=== PATIENT | female | born 1935 | race Caucasian/White ===

== ENCOUNTER 2017-08-01 17:58 | Inpatient (IN) | payer MEDICARE ==
[~2017-08-01] VITALS: Ht 160 cm; Wt 60.0 kg
[~2017-08-01 17:58] MED LIST: CALC500C16 CHEW; CARB25TA9 PO; VITA2000 PO; [UNRECOGNIZED DRUG - SUPPLY]
[2017-08-01 18:01] VITALS: BP 118/58; PULSE 98; RESP 16; TEMP 97.7; O2SAT 98
[2017-08-01] MEDS ORDERED: ASPI81CH6 CHEW (19:37)
[2017-08-01] MEDS ORDERED: SINE25TA PO (19:37)
[2017-08-01] MEDS ORDERED: MELA1TAB18 PO (19:37)
[2017-08-01] MEDS ORDERED: COLA100C5 PO (19:37)
--- NOTE | 2017-08-01 19:48 | PD ---
HPI Chief Complaint: Hip Injury Time Seen by Provider: 19:37 Travel History International Travel<30 days: No Contact w/Intl Traveler<30days: No Traveled to known affect area: No History of Present Illness HPI 81-year-old female with history of Parkinson's disease presents emergency department for evaluation following a fall. Patient states she was working out yesterday when she got dizzy and fell landing on her right side. Currently she is reporting no pain but states she has severe right buttock pain when she moves. Patient was sent here by Dr. Leblanc for further evaluation of a questionable fracture identified on x-ray. Denies any chest pain or tightness. She did not hit her head or lose consciousness. She has not recently ill. She has no other symptoms to report. PFSH Past Medical History Neurologic: Yes (PARKINSONS DISEASE) Influenza Vaccination: Yes : 0 Past Surgical History Surgical History: No Previous Surgery Social History Alcohol Use: Yes (SOCIAL) Tobacco Use: No Substance Use: No Allergies-Medications (Allergen,Severity, Reaction): Coded Allergies: penicillin G (Unverified Allergy, Severe, Anaphylaxis, 08/01/17) Reported Meds & Prescriptions Reported Meds & Active Scripts Active [PRASAD knee high stock] Units DIRECTED PRASAD knee high stockings; apply each morning as soon as out of bed and remove at bedtime Carbidopa-Levodopa 25-100 Mg Tab 1 Tab PO QID Reported Melatonin 10 Mg-1 Mg Tab 10 Mg PO HS PRN Aspirin Low Dose (Aspirin) 81 Mg Chew 81 Mg CHEW DAILY Colace (Docusate Sodium) 100 Mg Capsule 200 Mg PO HS Sinemet (Carbidopa-Levodopa) 25-100 Mg Tab 1 Tab PO Q6HR Calcium Carbonate (Antacid) 500 Mg Chew 500 Mg CHEW BID PRN Vitamin D3 (Cholecalciferol) 2,000 Unit Cap 2,000 Units PO DAILY Review of Systems Except as stated in HPI: all other systems reviewed are Neg Physical Exam Narrative GENERAL: Thin elderly female patient, sitting in bed, in no acute distress. SKIN: Focused skin assessment warm/dry. HEAD: Atraumatic. Normocephalic. EYES: Pupils equal and round. No scleral icterus. No injection or drainage. ENT: No nasal bleeding or discharge. Mucous membranes pink and moist. NECK: Trachea midline. No JVD. CARDIOVASCULAR: Regular rate and rhythm. RESPIRATORY: No accessory muscle use. Clear to auscultation. Breath sounds equal bilaterally. GASTROINTESTINAL: Abdomen soft, non-tender, nondistended. Hepatic and splenic margins not palpable. MUSCULOSKELETAL: No obvious deformities. No clubbing. No cyanosis. No edema. No shortening or rotation. No significant tenderness to palpation. Distal pulses are palpable. Cap refill is within normal limits. NEUROLOGICAL: Awake and alert. No obvious cranial nerve deficits. Motor grossly within normal limits. Normal speech. PSYCHIATRIC: Appropriate mood and affect; insight and judgment normal. Data Data Last Documented VS Vital Signs Date Time Temp Pulse Resp B/P (MAP) Pulse Ox O2 Delivery O2 Flow Rate FiO2 08/01/17 21:34 84 139/68 (91) 84 143/65 (91) 90 133/63 (86) 08/01/17 21:24 18 94 Room Air 08/01/17 18:01 97.7 Orders Orders Iv Access Insert/Monitor (08/01/17 19:48) Complete Blood Count With Diff (08/01/17 19:48) Basic Metabolic Panel (Bmp) (08/01/17 19:48) Coag Profile (08/01/17 19:48) Chest, Single Ap (08/01/17 ) Electrocardiogram (08/01/17 ) Shoulder, Complete (>2vws) (08/01/17 ) Ct Pelvis W/O Iv Contrast (08/01/17 ) Orthostatic Vital Signs (08/01/17 20:50) Aspirin Chew (Aspirin Chew) (08/02/17 09:00) Calcium Carbonate Chew (Tums Chew) (08/01/17 22:00) Carbidopa-Levodopa 25-100 Mg (Sinemet 25 (08/02/17 00:00) Melatonin (Melatonin) (08/01/17 22:00) Admit Order (Ed Use Only) (08/01/17 21:51) Troponin I (08/01/17 20:18) Place In Observation (08/01/17 ) Code Status (08/01/17 22:14) Vital Signs (Adult) Q4H (08/01/17 22:14) Activity Bed Rest (08/01/17 22:14) Crop Specialist / Telemetry .CONTINUOUS (08/01/17 22:14) Diet Regular Basic (08/02/17 Breakfast) Sodium Chloride 0.9% Flush (Ns Flush) (08/01/17 22:15) Sodium Chloride 0.9% Flush (Ns Flush) (08/02/17 09:00) Acetaminophen (Tylenol) (08/01/17 22:15) Ondansetron Inj (Zofran Inj) (08/01/17 22:15) Comprehensive Metabolic Panel (08/02/17 06:00) Complete Blood Count With Diff (08/02/17 06:00) Urinalysis - C+S If Indicated (08/01/17 22:14) Resp Oxygen Alfredo C Titrat 1-4 L (08/01/17 ) Pt Request For Service (08/01/17 22:14) Heparin Inj (Heparin Inj) (08/01/17 23:00) Naloxone Inj (Narcan Inj) (08/01/17 22:15) Docusate Sodium-Senna (Christine-Colace) (08/02/17 09:00) Magnesium Hydroxide Liq (Milk Of Magnesi (08/01/17 22:15) Sennosides (Senokot) (08/01/17 22:15) Bisacodyl Supp (Dulcolax Supp) (08/01/17 22:15) Lactulose Liq (Lactulose Liq) (08/01/17 22:15) Specimen To Be Collected PRN (08/01/17 22:14) Labs Laboratory Tests Test 08/01/17 20:18 Prothrombin Time 10.0 SEC Prothromb Time International Ratio 1.0 RATIO Activated Partial Thromboplast Time 23.6 SEC Blood Urea Nitrogen 19 MG/DL Creatinine 1.01 MG/DL Random Glucose 82 MG/DL Calcium Level 8.6 MG/DL Sodium Level 144 MEQ/L Potassium Level 4.5 MEQ/L Chloride Level 110 MEQ/L Carbon Dioxide Level 27.5 MEQ/L Anion Gap 7 MEQ/L Estimat Glomerular Filtration Rate 53 ML/MIN MDM Medical Decision Making Medical Screen Exam Complete: Yes Emergency Medical Condition: Yes Medical Record Reviewed: Yes Differential Diagnosis Fracture versus sprain versus contusion versus dislocation Narrative Course 81-year-old female presents to the emergency department for evaluation of a possible right hip fracture following a near syncopal episode yesterday where she did end up falling landing on her right side.. She did not lose consciousness. Patient is eager to get home however she does report right buttock pain with movement. CT imaging of the pelvis is ordered. Laboratory Tests Test 08/01/17 20:18 Prothrombin Time 10.0 SEC Prothromb Time International Ratio 1.0 RATIO Activated Partial Thromboplast Time 23.6 SEC Blood Urea Nitrogen 19 MG/DL Creatinine 1.01 MG/DL Random Glucose 82 MG/DL Calcium Level 8.6 MG/DL Sodium Level 144 MEQ/L Potassium Level 4.5 MEQ/L Chloride Level 110 MEQ/L Carbon Dioxide Level 27.5 MEQ/L Anion Gap 7 MEQ/L Estimat Glomerular Filtration Rate 53 ML/MIN Troponin I LESS THAN 0.02 NG/ML Last Impressions Shoulder X-Ray 08/01/17 0000 Signed Impressions: Service Date/Time: July 20:00 - CONCLUSION: No evidence of fracture or dislocation. Ramón Hui MD Pelvis CT 08/01/17 0000 Signed Impressions: Service Date/Time: July 20:06 - CONCLUSION: 1. Fractures of the anterior right acetabular column extending into superior pubic ramus and mildly comminuted fracture of the right inferior pubic ramus. 2. 9 mm calcified stone lower pole right kidney, partially included in the iszqh-ra-[id number] exam. Ramón Hui MD Chest X-Ray 08/01/17 Signed Impressions: Service Date/Time: July 20:00 - CONCLUSION: Infiltrate or atelectasis medial left lower lung. Ramón Hui MD CBC is not yet complete asthma she is being cleaned. I discussed the patient with Dr. Rudolph, resident physician ocean transportation intermediary. Patient will be admitted observation to the resident service. Diagnosis Primary Impression: Pelvic fracture Qualified Codes: S32.401A - Unspecified fracture of right acetabulum, initial encounter for closed fracture Additional Impression: Near syncope Admitting Information Admitting Physician Requests: Observation Condition: Stable Sierra Schmitt LISBET Aug 01, 2017 19:48
--- NOTE | 2017-08-01 20:12 | RADRPT ---
EXAM DATE/TIME: 08/01/2017 20:00 [facility] COMPARISON: SHOULDER RIGHT COMPLETE (>2VWS), August 01, 2017, 20:00. INDICATIONS : Evaluate chest for trauma, fall MEDICAL HISTORY : None. SURGICAL HISTORY : None. ENCOUNTER: Initial ACUITY: 1 day PAIN SCORE: 0/10 LOCATION: chest FINDINGS: Mild patient rotation towards the right. The right lung is clear. Hazy opacity in the medial left l ower lung suggest possible or atelectasis. The heart is normal in size. No evidence of pneumothorax . CONCLUSION: Infiltrate or atelectasis medial left lower lung. Ramón Hui MD on August 01, 2017 at 20:09 Board Certified Radiologist. This report was verified electronically.
--- NOTE | 2017-08-01 20:28 | RADRPT ---
EXAM DATE/TIME: 08/01/2017 20:00 [facility] COMPARISON: No previous studies available for comparison. INDICATIONS : Evaluate right shoulder for trauma, fall MEDICAL HISTORY : None. SURGICAL HISTORY : None. ENCOUNTER: Initial ACUITY: 1 day PAIN SCORE: 0/10 LOCATION: Right shoulder FINDINGS: Multiple view examination of the right shoulder demonstrates no evidence of fracture or dislocation. The glenohumeral and acromioclavicular joints are maintained. There is normal range of motion betwe en internal and external rotation. The visualized right upper ribs are intact. Bony mineralization is normal. CONCLUSION: No evidence of fracture or dislocation. Ramón Hui MD on August 01, 2017 at 20:26 Board Certified Radiologist. This report was verified electronically.
--- NOTE | 2017-08-01 20:52 | RADRPT ---
EXAM DATE/TIME: 08/01/2017 20:06 [facility] COMPARISON: No previous studies available for comparison. INDICATIONS : Trauma, fall. ORAL CONTRAST: No oral contrast ingested. RADIATION DOSE: 7.35 CTDIvol (mGy) MEDICAL HISTORY : Parkinson's. SURGICAL HISTORY : None. ENCOUNTER: Initial ACUITY: 1 day PAIN SCALE: 8/10 LOCATION: Right hip TECHNIQUE: Volumetric scanning of the pelvis was performed. Using automated exposure control and adjustment of the mA and/or kV according to patient size, radiation dose was kept as low as reasonably achievable t o obtain optimal diagnostic quality images. DICOM format image data is available electronically for review and comparison. FINDINGS: There are right pelvic fractures with a horizontal fracture through the anterior acetabular column wi th 1 mm separation and extension into the superior pubic ramus. There is also a mildly displaced fra cture of the inferior pubic ramus anteriorly with small comminuted fragment. The femoral head and ne ck are intact on the right side. No fracture is seen in the left hemipelvis. The sacrum appears brannon ssly intact. The right kidney is partially included in the dynap-fa-xpsl examination and there is a 9 mm calcified stone. 11 mm calcification in the central uterus characteristic of a calcified uterin e fibroid. No evidence of free fluid in the pelvis. Prominent amount of stool in the visualized col on. CONCLUSION: 1. Fractures of the anterior right acetabular column extending into superior pubic ramus and mildly comminuted fracture of the right inferior pubic ramus. 2. 9 mm calcified stone lower pole right kidney, partially included in the etymz-dt-[id number] exam. Ramón Hui MD on August 01, 2017 at 20:44 Board Certified Radiologist. This report was verified electronically.
[2017-08-01 21:24] VITALS: BP 138/73; PULSE 86; RESP 18; O2SAT 94
[2017-08-01 21:34] VITALS: BP_SYST 133; BP_SYST 139; BP_SYST 143; BP_DIAS 63; BP_DIAS 65; BP_DIAS 68
--- NOTE | 2017-08-01 21:45 | HHI.HP ---
HPI Service Family Medicine Primary Care Physician Jay Jay Caballero MD Admission Diagnosis Diagnoses: International Travel<30 Days: No Contact w/Intl Traveler<30days: No Known Affected Area: No History of Present Illness Patient is an 81 year old female with a past medical history significant of Parkinson's disease with dementia who presents to the [facility] ED from [facility]. History of present illness is difficult to obtain due to patient's mental state. Per patient's medical records, patient fell on Saturday and was noted to have difficulty walking. An x-ray was ordered, showing multiple fractures involving the pelvis. Dr. Mcintyre, family medicine, recommended patient present to the ED. Per patient, she may have fallen twice over the last few days. She doesn't remember the circumstances around the falls but denies loss of consciousness. She admits to difficulty walking due to pain. She reports pain along her entire back involving the midline with worse pain toward the right-side; she attributes the back pain to strained muscles following exercise. She has not been taking any pain medication. Review of Systems ROS Limitations: Other (Dementia) Other All systems are negative unless otherwise stated in HPI. Past Family Social History Past Medical History Parkinson's disease with dementia Past Surgical History Colonoscopy in October 2005 Reported Medications Melatonin 10 Mg-1 Mg Tab 10 Mg PO HS PRN Aspirin Low Dose (Aspirin) 81 Mg Chew 81 Mg CHEW DAILY Colace (Docusate Sodium) 100 Mg Capsule 200 Mg PO HS Sinemet (Carbidopa-Levodopa) 25-100 Mg Tab 1 Tab PO Q6HR Calcium Carbonate (Antacid) 500 Mg Chew 500 Mg CHEW BID PRN Vitamin D3 (Cholecalciferol) 2,000 Unit Cap 2,000 Units PO DAILY Allergies: Coded Allergies: penicillin G (Unverified Allergy, Severe, Anaphylaxis, 08/01/17) Active Ordered Medications Current Medications Medications (Trade) Dose Ordered Sig/Jagjit Route Start Time Stop Time Status Last Admin (Aspirin Chew) 81 mg DAILY CHEW 08/02/17 09:00 (Tums Chew) 500 mg BID PRN CHEW 08/01/17 22:00 (Sinemet 25-100 Mg) 1 tab Q6HR PO 08/02/17 00:00 (Melatonin) 10 mg HS PRN PO 08/01/17 22:00 Family History Father: in his early 70s, had hypertension, coronary artery disease with previous CABG and kidney cancer. Mother: Lived to be 100 and of natural causes. Siblings: One brother alive and well. Children: No children. Social History Marrital Status: Single. Living Situation: Living in an independent apartment at [facility]. Work history: Retired. Tobacco: Nonsmoker. Alcohol: None. Illicit drug use: None. Physical Exam Vital Signs Vital Signs Date Time Temp Pulse Resp B/P (MAP) Pulse Ox O2 Delivery O2 Flow Rate FiO2 08/01/17 21:34 84 139/68 (91) 84 143/65 (91) 90 133/63 (86) 08/01/17 21:24 86 18 138/73 (94) 94 Room Air 08/01/17 18:01 97.7 98 16 118/58 (78) 98 Physical Exam GENERAL: This is a well-nourished, well-developed elderly female, in no apparent distress. SKIN: Warm and dry. Dime-sized scab surrounded by large area of blanchable erythema over coccyx. HEAD: Atraumatic. Normocephalic. EYES: Pupils equal round. Extraocular motions intact. No scleral icterus. No injection or drainage. ENT: Nose without bleeding, purulent drainage or septal hematoma. Airway patent. NECK: Trachea midline. No JVD. Supple, nontender, no meningeal signs. CARDIOVASCULAR: Regular rate and rhythm without murmurs, gallops, or rubs. RESPIRATORY: Clear to auscultation. Breath sounds equal bilaterally. No wheezes , rales, or rhonchi. GASTROINTESTINAL: Positive bowel sounds. Abdomen soft, non-tender, nondistended. No hepato-splenomegaly, or palpable masses. No guarding. BACK/HIP: Non-tender; appropriate range of motion at the hip. MUSCULOSKELETAL: Lower extremities with compression stockings in place. No joint tenderness, effusion, or edema noted. No calf tenderness. NEUROLOGICAL: Awake and alert. Oriented to person and time (month and year) but not place. Cranial nerves II through XII intact. Resting tremor at baseline. Normal speech. Laboratory Laboratory Tests Test 08/01/17 20:18 Imaging Last Impressions Shoulder X-Ray 08/01/17 0000 Signed Impressions: Service Date/Time: July 20:00 - CONCLUSION: No evidence of fracture or dislocation. Ramón Hui MD Pelvis CT 08/01/17 Signed Impressions: Service Date/Time: July 20:06 - CONCLUSION: 1. Fractures of the anterior right acetabular column extending into superior pubic ramus and mildly comminuted fracture of the right inferior pubic ramus. 2. 9 mm calcified stone lower pole right kidney, partially included in the bakyx-ss-aywi exam. Ramón Hui MD Chest X-Ray 08/01/17 Signed Impressions: Service Date/Time: July 20:00 - CONCLUSION: Infiltrate or atelectasis medial left lower lung. Ramón Hui MD Caprini VTE Risk Assessment Caprini VTE Risk Assessment: Mod/High Risk (score >= 2) Caprini Risk Assessment Model Point Value = 1 Point Value = 2 Point Value = 3 Point Value = 5 Age 41-60 Minor surgery BMI > 25 kg/m2 Swollen legs Varicose veins or History of unexplained or recurrent spontaneous Oral contraceptives or hormone replacement Sepsis (< 1 month) Serious lung disease, including pneumonia (< 1 month) Abnormal pulmonary function Acute myocardial infarction Congestive heart failure (< 1 month) History of inflammatory bowel disease Medical patient at bed rest Age 61-74 Arthroscopic surgery Major open surgery (> 45 min) Laparoscopic surgery (> 45 min) Malignancy Confined to bed (> 72 hours) Immobilizing plaster cast Central venous access Age >= 75 History of VTE Family history of VTE Factor V Leiden Prothrombin [id number] Lupus anticoagulant Anticardiolipin antibodies Elevated serum homocysteine Heparin-induced thrombocytopenia Other congenital or acquired thrombophilia Stroke (< 1 month) Elective arthroplasty Hip, pelvis, or leg fracture Acute spinal cord injury (< 1 month) Prophylaxis Regimen Total Risk Factor Score Risk Level Prophylaxis Regimen 0-1 Low Early ambulation 2 Moderate Order ONE of the following: *Sequential Compression Device (SCD) *Heparin 5000 units SQ BID 3-4 Higher Order ONE of the following medications: *Heparin 5000 units SQ TID *Enoxaparin/Lovenox 40 mg SQ daily (WT < 150 kg, CrCl > 30 mL/min) *Enoxaparin/Lovenox 30 mg SQ daily (WT < 150 kg, CrCl > 10-29 mL/min) *Enoxaparin/Lovenox 30 mg SQ BID (WT < 150 kg, CrCl > 30 mL/min) AND/OR *Sequential Compression Device (SCD) 5 or more Highest Order ONE of the following medications: *Heparin 5000 units SQ TID (Preferred with Epidurals) *Enoxaparin/Lovenox 40 mg SQ daily (WT < 150 kg, CrCl > 30 mL/min) *Enoxaparin/Lovenox 30 mg SQ daily (WT < 150 kg, CrCl > 10-29 mL/min) *Enoxaparin/Lovenox 30 mg SQ BID (WT < 150 kg, CrCl > 30 mL/min) AND *Sequential Compression Device (SCD) Assessment and Plan Assessment and Plan Patient is an 81 year old female with a past medical history significant of Parkinson's disease with dementia who presents to the [facility] ED from [facility]. She was found to have multiple fracture sites involving her pelvis. Admitted to the family medicine service. Code Status DNR Discussed Condition With Dr. Mercer Problem List: (1) Fall ICD Codes: W19.XXXA - Unspecified fall, initial encounter Status: Acute Plan: Per patient's medical records, patient fell on Saturday and was noted to have difficulty walking. An x-ray was ordered, showing multiple fractures involving the pelvis. Dr. Mcintyre, family medicine, recommended patient present to the ED. Patient has history of falls. She reports two possible falls over the last few days. She doesn't remember the circumstances around the falls but denies loss of consciousness. She admits to difficulty walking due to pain. She reports pain along her entire back involving the midline with worse pain toward the right-side; she attributes the back pain to strained muscles following exercise. Labs/Studies/Imaging/Orders: * Troponin I: Less than 0.02. * EKG pending. * Spine-cervical, spine-thoracic, and spine-lumbar X-rays pending. * classroom monitor/telemetry. Others: * See Plan for Pelvic fracture. (2) Pelvic fracture ICD Codes: S32.9XXA - Fracture of unspecified parts of lumbosacral spine and pelvis, initial encounter for closed fracture Status: Acute Plan: Per patient's medical records, patient fell on Saturday and was noted to have difficulty walking. An x-ray was ordered, showing multiple fractures involving the pelvis. Dr. Mcintyre, family medicine, recommended patient present to the ED. Patient has history of falls. She reports two possible falls over the last few days. She doesn't remember the circumstances around the falls but denies loss of consciousness. She admits to difficulty walking due to pain. She reports pain along her entire back involving the midline with worse pain toward the right-side; she attributes the back pain to strained muscles following exercise. Labs: * CBC: WBC 7.5, Hgb 10.3, Hct 30.3, Plt Count 302. * BMP: BUN 19, Creatine 1.01. * Coagulation studies: PT 10, INR 1, APTT 23.6. * UA pending. Imaging: * Pelvic CT: Fractures of the anterior right acetabular column extending into superior pubic ramus and mildly comminuted fracture of the right inferior pubic ramus. 9mm calcified stone lower pole right kidney. * Shoulder X-ray: No evidence of fracture or dislocation. * Chest X-ray: Infiltrate or atelectasis medial left lower lung. Medications: * Tylenol 650mg q4hr PO PRN Temp >101, Pain 1-10, Headache Orders: * Activity: Bed rest. * Vital signs q4hr. * PT Consult. Awaiting recommendations as far as weight-bearing and rehabilitation plan. * May consider orthopedic surgery consult but management likely conservative. (3) Parkinsons disease ICD Codes: G20 - Parkinson's disease Status: Chronic Plan: Patient with history of Parkinson's disease and associated dementia. * Continue home Carbidopa-Levodopa 25-100mg 1 tab q6hr PO. (4) Fluid, Electrolyte, Nutrition, and Prophylaxis Status: Acute Plan: Fluids: * Tolerating PO. * Not indicated at this time. Electrolyte: * Monitor and replete as necessary. Nutrition: * Regular diet. Prophylaxis: * Heparin 5,000 units SQ q12hrs. Problem Qualifiers (1) Pelvic fracture: Qualified Codes: S32.401A - Unspecified fracture of right acetabulum, initial encounter for closed fracture Tricia Degroot MD R1 Aug 01, 2017 21:45
[2017-08-01] MEDS ORDERED: CALCIUM CARBONATE 500 MG CHEWABLE TAB CHEW PRN (22:00)
[2017-08-01 22:09] LABS: BICARBONATE 27.5 MEQ/L (21.0-32.0); BLOOD UREA NITROGEN 19 MG/DL (7-18); CALCIUM 8.6 MG/DL (8.5-10.1); CHLORIDE 110 MEQ/L (98-107); CREATININE 1.01 MG/DL (0.50-1.00); GLOMERULAR FILTRATION RATE 53 ML/MIN (>89); GLUCOSE,RANDOM 82 MG/DL (74-106); SODIUM (NA) 144 MEQ/L (136-145)
[2017-08-01] MEDS ORDERED: LACTULOSE SYRUP 20 GM/30 ML CUP PO PRN (22:15)
[2017-08-01] MEDS ORDERED: ONDANSETRON HCL 4 MG/2 ML VIAL IVP PRN (22:15)
[2017-08-01] MEDS ORDERED: MAGNESIUM HYDROXIDE SUSP 30 ML CUP PO PRN (22:15)
[2017-08-01] MEDS ORDERED: SODIUM CHLORIDE 0.9% FLUSH 10 ML FLUSH IV FLUSH PRN (22:15)
[2017-08-01] MEDS ORDERED: NALOXONE HCL 0.4 MG/ML AMP IV PUSH PRN (22:15)
[2017-08-01] MEDS ORDERED: SENNOSIDES 8.6 MG TAB PO PRN (22:15)
[2017-08-01] MEDS ORDERED: BISACODYL 10 MG SUPP RECTAL PRN (22:15)
[2017-08-01 22:29] LABS: AUTOMATED NEUTROPHIL # 5.9 TH/MM3 (1.8-7.7); BASOPHIL # 0.1 TH/MM3 (0-0.2); BASOPHIL % 0.8 % (0.0-2.0); EOSINOPHIL # 0.1 TH/MM3 (0-0.4); EOSINOPHIL % 1.5 % (0.0-4.0); HEMATOCRIT 30.3 % (35.0-46.0); HEMOGLOBIN 10.3 GM/DL (11.6-15.3); LYMPH % 11.8 % (9.0-44.0); LYMPHOCYTE # 0.9 TH/MM3 (1.0-4.8); MEAN CELL VOLUME 99.3 FL (80.0-100.0); MEAN CORPUSCULAR HEMOGLOBIN 33.8 PG (27.0-34.0); MEAN PLATELET VOLUME 7.3 FL (7.0-11.0); MONOCYTE # 0.5 TH/MM3 (0-0.9); NEUT % 78.9 % (16.0-70.0); PLATELET COUNT 302 TH/MM3 (150-450); RED BLOOD COUNT 3.05 MIL/MM3 (4.00-5.30); RED CELL DISTRIBUTION WIDTH 15.6 % (11.6-17.2); TROPONIN I LESS THAN 0.02 NG/ML (0.02-0.05); WHITE BLOOD COUNT 7.5 TH/MM3 (4.0-11.0)
[2017-08-01 22:31] VITALS: O2SAT 95
[2017-08-01 22:35] LABS: BANDS 9 % (0-6); LYMPHOCYTES 11 % (9-44); MONOCYTES 7 % (0-8); NEUTROPHIL # MANUAL DIFF 5.9 TH/MM3 (1.8-7.7); POLYS (SEG NEUTROPHILS) 70 % (16-70)
[2017-08-01 22:36] LABS: ACANTHOCYTES OCC (NORMAL); OVALOCYTES 1+ (NORMAL); TOXIC GRANULATION 1+ (NORMAL)
[2017-08-01] MEDS: HEPARIN SODIUM - SQ 10,000 UNITS/ML VIAL SQ SCH (23:05)
[2017-08-01] MEDS: CARBIDOPA/LEVODOPA 25 MG/100 MG TAB PO SCH (23:05)
--- NOTE | 2017-08-01 23:32 | EKG ---
Date Performed: 08/01/2017 Time Performed: 20:43:55 PTAGE: 81 years EKG: SUPRAVENTRICULAR RHYTHM LEFT POSTERIOR FASCICULAR BLOCK NONSPECIFIC T-WAVE ABNORMALITY ABNO RMAL ECG NO PREVIOUS TRACING DOCTOR: Danny Clemons Interpretating Date/Time 08/01/2017 23:32:41
--- NOTE | 2017-08-01 23:57 | RADRPT ---
EXAM DATE/TIME: 08/01/2017 23:26 [facility] COMPARISON: No previous studies available for comparison. INDICATIONS : Trauma, fall. Fractured pelvis. MEDICAL HISTORY : Parkinson's SURGICAL HISTORY : None. ENCOUNTER: Initial ACUITY: 1 day PAIN SCORE: Non-responsive. LOCATION: Thoracic spine. FINDINGS: No fracture or subluxation seen in the thoracic spine. There is mild disc space narrowing at essentia lly all levels and mild exaggeration of the thoracic kyphosis. CONCLUSION: Intact thoracic spine. Mild diffuse degenerative disc disease. Bridger Mahoney MD on August 01, 2017 at 23:55 Board Certified Radiologist. This report was verified electronically.
[2017-08-02] VITALS (7 sets, daily range): BP systolic 118–159; BP diastolic 56–80; PULSE 76–84; RESP 16–18; TEMP 96.4–98.2; O2SAT 95–96
--- NOTE | 2017-08-02 00:01 | RADRPT ---
EXAM DATE/TIME: 08/01/2017 23:09 [facility] COMPARISON: No previous studies available for comparison. INDICATIONS : Trauma, fall. Fractured pelvis. MEDICAL HISTORY : Parkinson's. SURGICAL HISTORY : None. ENCOUNTER: Initial ACUITY: 1 day PAIN SCORE: Non-responsive. LOCATION: Cervical spine. FINDINGS: No fracture or subluxation seen of the cervical spine. Prevertebral soft tissues are within normal li mits. Vertebral bodies have normal height. There is moderate to severe disc space narrowing with uncoverteb ral and facet osteoarthritis from C3/C4-C6/C7. Moderate osteoarthritis also seen at C1/C2. CONCLUSION: Intact cervical spine. Multilevel degenerative changes are present. Bridger Mahoeny MD on August 01, 2017 at 23:58 Board Certified Radiologist. This report was verified electronically.
--- NOTE | 2017-08-02 00:03 | RADRPT ---
EXAM DATE/TIME: 08/01/2017 23:28 [place] COMPARISON: CT PELVIS W/O CONTRAST, August 01, 2017, 20:06. INDICATIONS : Trauma, fall. Fractured pelvis. MEDICAL HISTORY : Parkinson's. SURGICAL HISTORY : None. ENCOUNTER: Initial ACUITY: 1 day PAIN SCORE: Non-responsive. LOCATION: Lumbar spine FINDINGS: Mild to moderate compression deformity seen of the L1 vertebral body, presumably acute. No retropulse d fracture fragments are demonstrated. Other vertebral bodies have normal height. There is approximately 6 mm of anterolisthesis at L4/L5 wh ich appears degenerative. Mild to moderate disc space narrowing and moderate to severe bilateral facet osteoarthritis seen at L 4/L5 and L5/S1. Similar but milder changes are seen at L3/L4. Right lower pole renal stone again noted. CONCLUSION: 1. Mild to moderate compression fracture of L1 without evidence of retropulsed fracture fragments. 2. Otherwise intact lumbar spine. Multilevel degenerative changes as above and including grade 1 dege nerative appearing anterolisthesis of L4/L5. Bridger Mahoney MD on August 02, 2017 at 0:00 Board Certified Radiologist. This report was verified electronically.
[2017-08-02] MEDS: ACETAMINOPHEN 325 MG TAB PO PRN (01:19)
[2017-08-02] MEDS: CARBIDOPA/LEVODOPA 25 MG/100 MG TAB PO SCH ×3 (06:02→17:13)
[2017-08-02 06:21] LABS: AUTOMATED NEUTROPHIL # 5.4 TH/MM3 (1.8-7.7); BASOPHIL # 0.1 TH/MM3 (0-0.2); BASOPHIL % 1.3 % (0.0-2.0); EOSINOPHIL # 0.2 TH/MM3 (0-0.4); EOSINOPHIL % 2.7 % (0.0-4.0); HEMATOCRIT 29.2 % (35.0-46.0); HEMOGLOBIN 10.2 GM/DL (11.6-15.3); LYMPHOCYTE # 0.8 TH/MM3 (1.0-4.8); MEAN CELL VOLUME 98.2 FL (80.0-100.0); MEAN CORPUSCULAR HEMOGLOBIN 34.3 PG (27.0-34.0); MEAN CORPUSCULAR HGB CONC 34.9 % (32.0-36.0); MEAN PLATELET VOLUME 6.9 FL (7.0-11.0); MONO % 5.9 % (0.0-8.0); MONOCYTE # 0.4 TH/MM3 (0-0.9); NEUT % 78.1 % (16.0-70.0); PLATELET COUNT 301 TH/MM3 (150-450); RED BLOOD COUNT 2.97 MIL/MM3 (4.00-5.30); RED CELL DISTRIBUTION WIDTH 15.1 % (11.6-17.2); WHITE BLOOD COUNT 6.9 TH/MM3 (4.0-11.0)
[2017-08-02 06:45] LABS: ALBUMIN 2.5 GM/DL (3.4-5.0); ALT (GPT) 7 U/L (10-53); AST (GOT) 15 U/L (15-37); BICARBONATE 25.8 MEQ/L (21.0-32.0); BLOOD UREA NITROGEN 17 MG/DL (7-18); CALCIUM 8.1 MG/DL (8.5-10.1); CHLORIDE 110 MEQ/L (98-107); GLOMERULAR FILTRATION RATE 60 ML/MIN (>89); GLUCOSE,RANDOM 82 MG/DL (74-106); SODIUM (NA) 143 MEQ/L (136-145)
[2017-08-02 06:47] LABS: ALKALINE PHOSPHATASE 53 U/L (45-117); TOTAL BILIRUBIN ADULT 0.6 MG/DL (0.2-1.0); TOTAL PROTEIN 5.9 GM/DL (6.4-8.2)
[2017-08-02] MEDS: DOCUSATE SODIUM 50 MG/SENNA 8.6 MG TAB PO SCH ×2 (09:00→20:53)
[2017-08-02] MEDS: SODIUM CHLORIDE 0.9% FLUSH 10 ML FLUSH IV FLUSH SCH ×2 (09:27→20:53)
[2017-08-02] MEDS: ASPIRIN 81 MG CHEW TAB CHEW SCH (09:27)
[2017-08-02] MEDS: HEPARIN SODIUM - SQ 10,000 UNITS/ML VIAL SQ SCH ×2 (11:20→22:11)
--- NOTE | 2017-08-02 11:28 | HHI.FPPN ---
Subjective Remarks Patient seen and examined this morning. Temperature 98.2, pulse 76, respiratory rate 18, blood pressure 149/70, pulse ox 95 on room air. She reports that she is feeling well and is hoping to get out of the hospital soon. Explained to her that she will require 3 hospital stays in order to go to detention facility for continued rehab. Uncertain how much she understood of our conversation. At this time awaiting physical therapy evaluation and anticipate discharge to [facility] for detention care. (Bao Oliver MD, R3) Objective Vitals Vital Signs Date Time Temp Pulse Resp B/P (MAP) Pulse Ox O2 Delivery O2 Flow Rate FiO2 08/02/17 08:30 82 16 141/65 (90) 95 Room Air 08/02/17 05:57 98.2 76 18 149/70 (96) 95 Room Air 08/02/17 01:14 84 16 141/80 (100) 95 Room Air 08/01/17 22:31 95 08/01/17 21:34 84 139/68 (91) 84 143/65 (91) 90 133/63 (86) 08/01/17 21:24 86 18 138/73 (94) 94 Room Air 08/01/17 18:01 97.7 98 16 118/58 (78) 98 (Bao Oliver MD, R3) Result Diagram: 08/02/17 0601 08/02/17 0601 Imaging Last Impressions Thoracic Spine X-Ray 08/01/17 0000 Signed Impressions: Service Date/Time: July 23:26 - CONCLUSION: Intact thoracic spine. Mild diffuse degenerative disc disease. Bridger Mahoney MD Shoulder X-Ray 08/01/17 0000 Signed Impressions: Service Date/Time: July 20:00 - CONCLUSION: No evidence of fracture or dislocation. Ramón Hui MD Pelvis CT 08/01/17 0000 Signed Impressions: Service Date/Time: July 20:06 - CONCLUSION: 1. Fractures of the anterior right acetabular column extending into superior pubic ramus and mildly comminuted fracture of the right inferior pubic ramus. 2. 9 mm calcified stone lower pole right kidney, partially included in the [id number] exam. Ramón Hui MD Lumbar Spine X-Ray 08/01/17 0000 Signed Impressions: Service Date/Time: July 23:28 - CONCLUSION: 1. Mild to moderate compression fracture of L1 without evidence of retropulsed fracture fragments. 2. Otherwise intact lumbar spine. Multilevel degenerative changes as above and including grade 1 degenerative appearing anterolisthesis of L4/L5. Bridger Mahoney MD Chest X-Ray 08/01/17 0000 Signed Impressions: Service Date/Time: July 20:00 - CONCLUSION: Infiltrate or atelectasis medial left lower lung. Ramón Hui MD Cervical Spine X-Ray 08/01/17 Signed Impressions: Service Date/Time: July 23:09 - CONCLUSION: Intact cervical spine. Multilevel degenerative changes are present. Bridger Mahoney MD Objective Remarks GENERAL: This is a well-nourished, well-developed elderly female, in no apparent distress. SKIN: Warm and dry. Dime-sized scab surrounded by large area of blanchable erythema over coccyx. HEAD: Atraumatic. Normocephalic. EYES: Pupils equal round. Extraocular motions intact. No scleral icterus. No injection or drainage. ENT: Nose without bleeding, purulent drainage or septal hematoma. Airway patent. NECK: Trachea midline. No JVD. Supple, nontender, no meningeal signs. CARDIOVASCULAR: Regular rate and rhythm without murmurs, gallops, or rubs. RESPIRATORY: Clear to auscultation. Breath sounds equal bilaterally. No wheezes , rales, or rhonchi. GASTROINTESTINAL: Positive bowel sounds. Abdomen soft, non-tender, nondistended. No hepato-splenomegaly, or palpable masses. No guarding. BACK/HIP: Non-tender MUSCULOSKELETAL: Lower extremities with compression stockings in place. No joint tenderness, effusion, or edema noted. No calf tenderness. NEUROLOGICAL: Awake and alert. Cranial nerves II through XII grossly intact. Resting tremor at baseline. Normal speech. Medications and IVs Current Medications Medications (Trade) Dose Ordered Sig/Jagjit Route Start Time Stop Time Status Last Admin (Aspirin Chew) 81 mg DAILY CHEW 08/02/17 09:00 08/02/17 09:27 (Tums Chew) 500 mg BID PRN CHEW 08/01/17 22:00 (Sinemet 25-100 Mg) 1 tab Q6HR PO 08/02/17 00:00 08/02/17 11:20 (Melatonin) 10 mg HS PRN PO 08/01/17 22:00 (NS Flush) 2 ml UNSCH PRN IV FLUSH 08/01/17 22:15 (NS Flush) 2 ml BID IV FLUSH 08/02/17 09:00 08/02/17 09:27 (Tylenol) 650 mg Q4H PRN PO 08/01/17 22:15 08/02/17 01:19 (Zofran Inj) 4 mg Q6H PRN IVP 08/01/17 22:15 (Heparin Inj) 5,000 units Q12H SQ 08/01/17 23:00 08/02/17 11:20 (Narcan Inj) 0.4 mg UNSCH PRN IV PUSH 08/01/17 22:15 (Christine-Colace) 1 tab BID PO 08/02/17 09:00 (Milk Of Magnesia Liq) 30 ml Q12H PRN PO 08/01/17 22:15 (Senokot) 17.2 mg Q12H PRN PO 08/01/17 22:15 (Dulcolax Supp) 10 mg DAILY PRN RECTAL 08/01/17 22:15 (Lactulose Liq) 30 ml DAILY PRN PO 08/01/17 22:15 (Bao Oliver MD, R3) A/P Assessment and Plan Patient is an 81 year old female with a past medical history significant of Parkinson's disease with dementia who presents to the [place] ED from [facility]. She was found to have multiple fracture sites involving her pelvis. Admitted to the family medicine service. Discharge Planning Anticipate 3 night stay in order to discharge to a detention facility, likely [facility] which is where she is currently living in assisted living care (Bao Oliver MD, R3) Attending Attestation Elderly female in no distress until turned on her side. Had a fall and ultimately was diagnosed with pelvic fractures. Had complaint of no pelvic pain , but did c/o back pain. Imaging revealed a lumbar vertebral fracture. She lives in assisted living at [facility]. Her Parkinsonian tremor is rather marked. She hopefully understands that she needs 3 midnights in hospital before she can qualify for rehab under medicare. History and physical exam are as above. Patient seen and examined. Case reviewed and discussed with the resident team. Agree with plan of care as discussed with me and documented in the resident note. (Clarice Cardoso MD) Problem List: (1) Fall ICD Codes: W19.XXXA - Unspecified fall, initial encounter Status: Acute Plan: Per patient's medical records, patient fell on Saturday and was noted to have difficulty walking. An x-ray was ordered, showing multiple fractures involving the pelvis. Dr. Mcintyre, [facility], recommended patient present to the ED. Labs/Studies/Imaging/Orders: * Troponin I: Less than 0.02. * EKG sinus rhythm * monitoring analyst/telemetry. Others: * See Plan for Pelvic fracture. (2) Pelvic fracture ICD Codes: S32.9XXA - Fracture of unspecified parts of lumbosacral spine and pelvis, initial encounter for closed fracture Status: Acute Plan: Imaging: * Pelvic CT: Fractures of the anterior right acetabular column extending into superior pubic ramus and mildly comminuted fracture of the right inferior pubic ramus. 9mm calcified stone lower pole right kidney. * Shoulder X-ray: No evidence of fracture or dislocation. * Chest X-ray: Infiltrate or atelectasis medial left lower lung. Medications: * Tylenol 650mg q4hr PO PRN Temp >101, Pain 1-10, Headache Orders: * Activity: Bed rest. * Vital signs q4hr. * PT Consult. Awaiting recommendations as far as weight-bearing and rehabilitation plan. * May consider orthopedic surgery consult but management likely conservative. Continue conservative management this time * Started calcitonin nasal spray (3) Parkinsons disease ICD Codes: G20 - Parkinson's disease Status: Chronic Plan: Patient with history of Parkinson's disease and associated dementia. * Continue home Carbidopa-Levodopa 25-100mg 1 tab q6hr PO. (4) Fluid, Electrolyte, Nutrition, and Prophylaxis Status: Acute Plan: Fluids: * Tolerating PO. * Not indicated at this time. Electrolyte: * Monitor and replete as necessary. Nutrition: * Regular diet. Prophylaxis: * Heparin 5,000 units SQ q12hrs. (Bao Oliver MD, R3) Problem Qualifiers (1) Pelvic fracture: Qualified Codes: S32.401A - Unspecified fracture of right acetabulum, initial encounter for closed fracture Bao Oliver MD, R3 Aug 02, 2017 11:28 Clarice Cardoso MD Aug 02, 2017 11:52
[2017-08-02] MEDS: CALCITONIN SALM 200 UNIT/SPRAY 3.7 ML BTLN NASAL SCH (14:00)
[2017-08-03] VITALS (8 sets, daily range): BP systolic 90–144; BP diastolic 50–72; PULSE 63–81; RESP 16–18; TEMP 95.9–97.3; O2SAT 94–98
[2017-08-03] MEDS: ACETAMINOPHEN 325 MG TAB PO PRN ×3 (00:19→23:34)
[2017-08-03] MEDS: CARBIDOPA/LEVODOPA 25 MG/100 MG TAB PO SCH ×5 (00:19→23:33)
[2017-08-03] MEDS: HEPARIN SODIUM - SQ 10,000 UNITS/ML VIAL SQ SCH ×3 (05:36→21:59)
[2017-08-03] MEDS: ASPIRIN 81 MG CHEW TAB CHEW SCH (08:19)
[2017-08-03] MEDS: DOCUSATE SODIUM 50 MG/SENNA 8.6 MG TAB PO SCH ×2 (08:20→19:50)
[2017-08-03] MEDS: SODIUM CHLORIDE 0.9% FLUSH 10 ML FLUSH IV FLUSH SCH ×2 (08:20→19:50)
[2017-08-03] MEDS: CALCITONIN SALM 200 UNIT/SPRAY 3.7 ML BTLN NASAL SCH (08:20)
--- NOTE | 2017-08-03 09:04 | HHI.FPPN ---
Subjective Remarks Pt seen and examined this morning. No acute events overnight. Denies any complaints this morning. Understands plan to go to rehab. Denies any chest pain , SOB, abdominal pain. Objective Vitals Vital Signs Date Time Temp Pulse Resp B/P (MAP) Pulse Ox O2 Delivery O2 Flow Rate FiO2 08/03/17 04:20 63 08/03/17 04:00 96.4 68 18 144/69 (94) 96 08/03/17 00:05 96.5 74 16 128/72 (90) 97 08/02/17 20:00 84 08/02/17 20:00 96.4 78 18 118/56 (76) 96 08/02/17 17:53 96 21 08/02/17 16:00 96.9 83 18 159/75 (103) 96 08/02/17 12:56 08/02/17 12:40 96.9 84 18 143/77 (99) 95 I/O 08/02/17 08/02/17 08/02/17 08/03/17 08/03/17 08/03/17 07:00 15:00 23:00 07:00 15:00 23:00 Intake Total 120 ml 240 ml 240 ml Balance 120 ml 240 ml 240 ml Intake Oral 120 ml 240 ml 240 ml # Voids 1 2 3 2 # Bowel Movements 0 0 0 Result Diagram: 08/02/1760008/02/17 06 Imaging Last Impressions Thoracic Spine X-Ray 08/01/17 0000 Signed Impressions: Service Date/Time: July 23:26 - CONCLUSION: Intact thoracic spine. Mild diffuse degenerative disc disease. Bridger Mahoney MD Shoulder X-Ray 08/01/17 0000 Signed Impressions: Service Date/Time: July 20:00 - CONCLUSION: No evidence of fracture or dislocation. Ramón Hui MD Pelvis CT 08/01/17 0000 Signed Impressions: Service Date/Time: July 20:06 - CONCLUSION: 1. Fractures of the anterior right acetabular column extending into superior pubic ramus and mildly comminuted fracture of the right inferior pubic ramus. 2. 9 mm calcified stone lower pole right kidney, partially included in the [id number] exam. Ramón Hui MD Lumbar Spine X-Ray 08/01/17 Signed Impressions: Service Date/Time: July 23:28 - CONCLUSION: 1. Mild to moderate compression fracture of L1 without evidence of retropulsed fracture fragments. 2. Otherwise intact lumbar spine. Multilevel degenerative changes as above and including grade 1 degenerative appearing anterolisthesis of L4/L5. Bridger Mahoney MD Chest X-Ray 08/01/17 Signed Impressions: Service Date/Time: July 20:00 - CONCLUSION: Infiltrate or atelectasis medial left lower lung. Ramón Hui MD Cervical Spine X-Ray 08/01/17 Signed Impressions: Service Date/Time: July 23:09 - CONCLUSION: Intact cervical spine. Multilevel degenerative changes are present. Bridger Mahoney MD Objective Remarks GENERAL: This is a well-nourished, well-developed elderly female, in no apparent distress. SKIN: Warm and dry. Dime-sized scab surrounded by large area of blanchable erythema over coccyx, not examined today CARDIOVASCULAR: Regular rate and rhythm without murmurs, gallops, or rubs. RESPIRATORY: Clear to auscultation. Breath sounds equal bilaterally. No wheezes , rales, or rhonchi. GASTROINTESTINAL: Positive bowel sounds. Abdomen soft, non-tender, nondistended. No hepato-splenomegaly, or palpable masses. No guarding. BACK/HIP: Non-tender MUSCULOSKELETAL: Lower extremities with 1+ edema bilaterally. No calf tenderness. NEUROLOGICAL: Awake and alert. Resting tremor at baseline. Normal speech. A/P Assessment and Plan Patient is an 81 year old female with a past medical history significant of Parkinson's disease with dementia who presents to the [place] ED from [facility]. She was found to have multiple fracture sites involving her pelvis. Admitted to the family medicine service. Discharge Planning Anticipate 3 night stay in order to discharge to a custodial facility, likely [facility] which is where she is currently living in assisted living care Problem List: (1) Pelvic fracture ICD Codes: S32.9XXA - Fracture of unspecified parts of lumbosacral spine and pelvis, initial encounter for closed fracture Status: Acute Plan: Imaging: * Pelvic CT: Fractures of the anterior right acetabular column extending into superior pubic ramus and mildly comminuted fracture of the right inferior pubic ramus. 9mm calcified stone lower pole right kidney. * Shoulder X-ray: No evidence of fracture or dislocation. * Chest X-ray: Infiltrate or atelectasis medial left lower lung. Medications: * Tylenol 650mg q4hr PO PRN Temp >101, Pain 1-10, Headache Orders: * Activity: Bed rest. * Vital signs q4hr. * PT Consult -->PT at rehab * Continue conservative management this time * Continue calcitonin nasal spray (2) Compression fracture of L1 lumbar vertebra ICD Codes: S32.010A - Wedge compression fracture of first lumbar vertebra, initial encounter for closed fracture Plan: L-spine xray: Mild to moderate compression fracture of L1 -Continue pain control as above -Conservative management -PT (3) Fall ICD Codes: W19.XXXA - Unspecified fall, initial encounter Status: Acute Plan: Per patient's medical records, patient fell on Saturday and was noted to have difficulty walking. An x-ray was ordered, showing multiple fractures involving the pelvis. Dr. Mcintyre, family medicine, recommended patient present to the ED. Labs/Studies/Imaging/Orders: * Troponin I: Less than 0.02. * EKG sinus rhythm * court recording monitor/telemetry. Others: * See Plan for Pelvic fracture. (4) Parkinsons disease ICD Codes: G20 - Parkinson's disease Status: Chronic Plan: Patient with history of Parkinson's disease and associated dementia. * Continue home Carbidopa-Levodopa 25-100mg 1 tab q6hr PO. (5) Fluid, Electrolyte, Nutrition, and Prophylaxis Status: Acute Plan: Fluids: * Tolerating PO. * Not indicated at this time. Electrolyte: * Monitor and replete as necessary. Nutrition: * Regular diet. Prophylaxis: * Heparin 5,000 units SQ q8hrs. Problem Qualifiers (1) Pelvic fracture: Qualified Codes: S32.401A - Unspecified fracture of right acetabulum, initial encounter for closed fracture (2) Compression fracture of L1 lumbar vertebra: Qualified Codes: S32.010A - Wedge compression fracture of first lumbar vertebra , initial encounter for closed fracture Sánchez Mercer MD Aug 03, 2017 09:04
--- NOTE | 2017-08-03 22:49 | EKG ---
Date Performed: 08/01/2017 Time Performed: 22:09:50 PTAGE: 81 years EKG: Sinus rhythm NONSPECIFIC T-WAVE ABNORMALITY BORDERLINE ECG PREVIOUS TRACING : 08/01/2017 20.43 Compared to prior tracing, now in sinus rhythm DOCTOR: Danny Clemons Interpretating Date/Time 08/03/2017 22:48:42
[2017-08-04] VITALS (9 sets, daily range): BP systolic 105–149; BP diastolic 53–71; PULSE 63–88; RESP 16–20; TEMP 95.4–98.7; O2SAT 95–97
[2017-08-04] MEDS: CARBIDOPA/LEVODOPA 25 MG/100 MG TAB PO SCH ×3 (06:14→16:55)
[2017-08-04] MEDS: ACETAMINOPHEN 325 MG TAB PO PRN ×3 (06:14→19:32)
[2017-08-04] MEDS: HEPARIN SODIUM - SQ 10,000 UNITS/ML VIAL SQ SCH ×3 (06:14→19:37)
[2017-08-04] MEDS: ASPIRIN 81 MG CHEW TAB CHEW SCH (08:44)
[2017-08-04] MEDS: DOCUSATE SODIUM 50 MG/SENNA 8.6 MG TAB PO SCH ×2 (08:44→19:31)
[2017-08-04] MEDS: CALCITONIN SALM 200 UNIT/SPRAY 3.7 ML BTLN NASAL SCH (08:44)
[2017-08-04] MEDS: SODIUM CHLORIDE 0.9% FLUSH 10 ML FLUSH IV FLUSH SCH ×2 (08:45→19:37)
--- NOTE | 2017-08-04 08:50 | HHI.FPPN ---
Subjective Remarks Patient seen and examined at bedside this morning. No acute events overnight. Patient denies CP, sob, abdominal pain, dysuria. Pain is well controlled. Pt reports she is eating well and has been normal with her BM. Last BM was yesterday. (Juanjo Vanegas MD, R1) Objective Vitals Vital Signs Date Time Temp Pulse Resp B/P (MAP) Pulse Ox O2 Delivery O2 Flow Rate FiO2 08/04/17 07:51 98.7 72 20 134/68 (90) 96 08/04/17 04:00 96.4 71 16 126/59 (81) 97 08/04/17 00:00 97.5 74 18 149/71 (97) 96 08/03/17 20:58 94 21 08/03/17 19:28 97.3 81 18 109/55 (73) 94 08/03/17 16:00 96.5 81 16 134/68 (90) 96 08/03/17 12:00 96.8 80 16 90/50 (63) 98 I/O 08/03/17 08/03/17 08/03/17 08/04/17 08/04/17 08/04/17 07:00 15:00 23:00 07:00 15:00 23:00 Intake Total 240 ml 480 ml 240 ml 240 ml Balance 240 ml 480 ml 240 ml 240 ml Intake Oral 240 ml 480 ml 240 ml 240 ml # Voids 2 4 3 4 # Bowel Movements 0 0 2 0 (Juanjo Vanegas MD, R1) Result Diagram: 08/02/17 0601 08/02/17 0601 Objective Remarks GENERAL: This is a well-nourished, well-developed elderly female, in no apparent distress. SKIN: Warm and dry. Dime-sized scab surrounded by large area of blanchable erythema over coccyx, not examined today CARDIOVASCULAR: Regular rate and rhythm without murmurs, gallops, or rubs. RESPIRATORY: Clear to auscultation. Breath sounds equal bilaterally. No wheezes , rales, or rhonchi. GASTROINTESTINAL: Positive bowel sounds. Abdomen soft, non-tender, nondistended. No hepato-splenomegaly, or palpable masses. No guarding. BACK/HIP: Non-tender MUSCULOSKELETAL: No calf tenderness. NEUROLOGICAL: Awake and alert. Resting tremor at baseline. Normal speech. (Juanjo Vanegas MD, R1) A/P Assessment and Plan Patient is an 81 year old female with a past medical history significant of Parkinson's disease with dementia who presents to the [place] ED from [facility]. She was found to have multiple fracture sites involving her pelvis. Admitted to the family medicine service. Discharge Planning Anticipate 3 night stay in order to discharge to a custodial facility, likely [facility] which is where she is currently living in assisted living care (Juanjo Vanegas MD, R1) Attending Attestation Pt. seen at 1045 today. She understands the plan and is ready for transfer. Patient seen and examined. Case reviewed and discussed with the resident team. Agree with plan of care as discussed with me and documented in the resident note. (Clarice Cardoso MD) Problem List: (1) Pelvic fracture ICD Codes: S32.9XXA - Fracture of unspecified parts of lumbosacral spine and pelvis, initial encounter for closed fracture Status: Acute Plan: Imaging: * Pelvic CT: Fractures of the anterior right acetabular column extending into superior pubic ramus and mildly comminuted fracture of the right inferior pubic ramus. 9mm calcified stone lower pole right kidney. * Shoulder X-ray: No evidence of fracture or dislocation. * Chest X-ray: Infiltrate or atelectasis medial left lower lung. Medications: * Tylenol 650mg q4hr PO PRN Temp >101, Pain 1-10, Headache Orders: * Activity: Bed rest. * Vital signs q4hr. * PT Consult -->PT at rehab * Continue conservative management this time * Continue calcitonin nasal spray (2) Compression fracture of L1 lumbar vertebra ICD Codes: S32.010A - Wedge compression fracture of first lumbar vertebra, initial encounter for closed fracture Plan: L-spine xray: Mild to moderate compression fracture of L1 -Continue pain control as above -Conservative management -PT (3) Fall ICD Codes: W19.XXXA - Unspecified fall, initial encounter Status: Acute Plan: Per patient's medical records, patient fell on Saturday and was noted to have difficulty walking. An x-ray was ordered, showing multiple fractures involving the pelvis. Dr. Mcintyre, family medicine, recommended patient present to the ED. Labs/Studies/Imaging/Orders: * Troponin I: Less than 0.02. * EKG sinus rhythm * front desk monitor/telemetry. Others: * See Plan for Pelvic fracture. (4) Parkinsons disease ICD Codes: G20 - Parkinson's disease Status: Chronic Plan: Patient with history of Parkinson's disease and associated dementia. * Continue home Carbidopa-Levodopa 25-100mg 1 tab q6hr PO. (5) Fluid, Electrolyte, Nutrition, and Prophylaxis Status: Acute Plan: Fluids: * Tolerating PO. * Not indicated at this time. Electrolyte: * Monitor and replete as necessary. Nutrition: * Regular diet. Prophylaxis: * Heparin 5,000 units SQ q8hrs. (Juanjo Vanegas MD, R1) Problem Qualifiers (1) Pelvic fracture: Qualified Codes: S32.401A - Unspecified fracture of right acetabulum, initial encounter for closed fracture (2) Compression fracture of L1 lumbar vertebra: Qualified Codes: S32.010A - Wedge compression fracture of first lumbar vertebra , initial encounter for closed fracture Juanjo Vanegas MD, R1 Aug 04, 2017 08:50 Clarice Cardoso MD Aug 04, 2017 10:49
[2017-08-04] MEDS ORDERED: ACET325T15 PO (09:02)
--- NOTE | 2017-08-04 11:23 | HHI.DCPOC ---
Discharge Care Plan Diagnosis: (1) Parkinson disease (2) Pelvic fracture (3) Fall (4) Compression fracture of L1 lumbar vertebra Goals to Promote Your Health * To prevent worsening of your condition and complications * To maintain your health at the optimal level Directions to Meet Your Goals Take your medications as prescribed Follow your dietary instruction Follow activity as directed Keep your appointments as scheduled Take your immunizations and boosters as scheduled If your symptoms worsen call your PCP, if no PCP go to Urgent Care Center or Emergency Room Smoking is Dangerous to Your Health. Avoid second hand smoke Call the 24-hour hour crisis hotline for domestic abuse at Juanjo Vanegas MD, R1 Aug 04, 2017 11:23
[2017-08-04] MEDS: MELATONIN 5 MG TAB PO PRN (19:31)
[2017-08-05] VITALS (9 sets, daily range): BP systolic 93–138; BP diastolic 47–59; PULSE 61–100; RESP 15–20; TEMP 96–98.2; O2SAT 95–96
[2017-08-05] MEDS: CARBIDOPA/LEVODOPA 25 MG/100 MG TAB PO SCH ×5 (00:33→23:38)
[2017-08-05] MEDS: HEPARIN SODIUM - SQ 10,000 UNITS/ML VIAL SQ SCH ×3 (05:48→22:27)
[2017-08-05] MEDS: ACETAMINOPHEN 325 MG TAB PO PRN ×2 (05:48→20:24)
[2017-08-05] MEDS: SODIUM CHLORIDE 0.9% FLUSH 10 ML FLUSH IV FLUSH SCH ×2 (09:00→20:23)
--- NOTE | 2017-08-05 09:19 | HHI.FPPN ---
Subjective Remarks Patient seen and examined this morning. No acute events overnight. Patient does not endorse pain, dyspnea. No eating difficulties. Pain is well controlled. Last BM 08/04/2017. (Elmira Mendez MD) Objective Vitals Vital Signs Date Time Temp Pulse Resp B/P (MAP) Pulse Ox O2 Delivery O2 Flow Rate FiO2 08/05/17 08:00 96.7 66 17 107/59 (75) 96 08/05/17 04:31 96 08/05/17 04:00 97.0 85 20 138/53 (81) 95 08/05/17 00:00 96.8 100 20 134/58 (83) 96 08/04/17 20:03 88 08/04/17 20:00 96.7 74 18 144/71 (95) 97 08/04/17 14:56 97.8 77 18 111/56 (74) 96 08/04/17 12:00 72 08/04/17 11:47 95.4 74 19 105/53 (70) 95 I/O 08/04/17 08/04/17 08/04/17 08/05/17 08/05/17 08/05/17 07:00 15:00 23:00 07:00 15:00 23:00 Intake Total 240 ml 700 ml Balance 240 ml 700 ml Intake Oral 240 ml 700 ml # Voids 4 4 # Bowel Movements 0 2 (Elmira Mendez MD) Result Diagram: 08/02/17 0608/02/17 06 Objective Remarks GENERAL: This is a well-nourished, well-developed elderly female, in no apparent distress, lying in bed comfortably. SKIN: Warm and dry. Dime-sized scab surrounded by large area of blanchable erythema over coccyx, not examined today CARDIOVASCULAR: Regular rate and rhythm without murmurs, gallops, or rubs. RESPIRATORY: Clear to auscultation. Breath sounds equal bilaterally. No wheezes , rales, or rhonchi. GASTROINTESTINAL: Positive bowel sounds. Abdomen soft, non-tender, nondistended. No hepato-splenomegaly, or palpable masses. No guarding. BACK/HIP: Non-tender to palpation MUSCULOSKELETAL: No calf tenderness. NEUROLOGICAL: Awake and alert. Resting tremor at baseline. Normal speech. Medications and IVs Inpatient Medications Acetaminophen (Tylenol) 650 mg Q4H PRN PO TEMP>101F, PAIN 1-10, HEADACHE Last administered on 08/05/17 05:48; Start 08/01/17 at 22:15 Aspirin (Aspirin Chew) 81 mg DAILY CHEW Last administered on 08/04/17at 08:44; Start 08/02/17 at 09:00 Bisacodyl (Dulcolax Supp) 10 mg DAILY PRN RECTAL SEVERE CONSITIPATION; Start at 22:15 Calcium Carbonate (Tums Chew) 500 mg BID PRN CHEW HEARTBURN; Start 08/01/17 at 22:00 Carbidopa/Levodopa (Sinemet 25-100 Mg) 1 tab Q6HR PO Last administered on 05:47; Start 08/02/17 at 00:00 Heparin Sodium (Porcine) (Heparin Inj) 5,000 units Q8HR SQ Last administered on 08/05/17 05:48; Start 08/02/17 at 22:00 Lactulose (Lactulose Liq) 30 ml DAILY PRN PO SEVERE CONSITIPATION; Start at 22:15 Magnesium Hydroxide (Milk Of Magnesia Liq) 30 ml Q12H PRN PO Mild constipation ; Start 08/01/17 at 22:15 Melatonin (Melatonin) 10 mg HS PRN PO SLEEP Last administered on 08/04/17 19: 31; Start 08/01/17 at 22:00 Naloxone HCl (Narcan Inj) 0.4 mg UNSCH PRN IV PUSH SEE LABEL COMMENTS; Start at 22:15 Ondansetron HCl (Zofran Inj) 4 mg Q6H PRN IVP NAUSEA OR VOMITING; Start at 22:15 Senna/Docusate Sodium (Christine-Colace) 1 tab BID PO Last administered on 19:31; Start 08/02/17 at 09:00 Sennosides (Senokot) 17.2 mg Q12H PRN PO Moderate constipation Last administered on 08/04/17 19:32; Start 08/01/17 at 22:15 Sodium Chloride (NS Flush) 2 ml BID IV FLUSH Last administered on 08/04/17 08: 45; Start 08/02/17 at 09:00 (Elmira Mendez MD) Urinary Catheter: No Assessment to: Continue (Elmira Mendez MD) A/P Assessment and Plan Patient is an 81-year-old female with a past medical history significant of Parkinson's disease with dementia who presented to the [facility] ED from [facility] on 08/02. She was found to have multiple fracture sites involving her pelvis. Admitted to the family medicine service for monitoring. Discharge Planning S/P 3 night stay in order to discharge to a senior care facility, going to [facility] today. Case management aware, 3008 in chart. (Elmira Mendez MD) Attending Attestation Pt. seen and discussed with Drs. Bradley and Andrea. I agree with the findings and the plan as noted. (Clarice Cardoso MD) Problem List: (1) Pelvic fracture ICD Codes: S32.9XXA - Fracture of unspecified parts of lumbosacral spine and pelvis, initial encounter for closed fracture Status: Acute Plan: Imaging: * Pelvic CT: Fractures of the anterior right acetabular column extending into superior pubic ramus and mildly comminuted fracture of the right inferior pubic ramus. 9mm calcified stone lower pole right kidney. * Shoulder X-ray: No evidence of fracture or dislocation. * Chest X-ray: Infiltrate or atelectasis medial left lower lung. Medications: * Tylenol 650mg q4hr PO PRN Temp >101, Pain 1-10, Headache Orders: * Activity: OOB with assistance * Vital signs q4hr. * PT Consult -->PT at rehab * Continue conservative management this time * Continue calcitonin nasal spray PRN (2) Compression fracture of L1 lumbar vertebra ICD Codes: S32.010A - Wedge compression fracture of first lumbar vertebra, initial encounter for closed fracture Plan: L-spine xray: Mild to moderate compression fracture of L1 -Continue pain control as above -Conservative management -PT (3) Fall ICD Codes: W19.XXXA - Unspecified fall, initial encounter Status: Acute Plan: Per patient's medical records, patient fell on Saturday and was noted to have difficulty walking. An x-ray was ordered, showing multiple fractures involving the pelvis. Dr. Mcintyre, family medicine, recommended patient present to the ED. Labs/Studies/Imaging/Orders: * Troponin I: Less than 0.02. * EKG sinus rhythm * security monitor/telemetry. Others: * See Plan for Pelvic fracture. (4) Parkinsons disease ICD Codes: G20 - Parkinson's disease Status: Chronic Plan: Patient with history of Parkinson's disease and associated dementia. * Continue home Carbidopa-Levodopa 25-100mg 1 tab q6hr PO. (5) Fluid, Electrolyte, Nutrition, and Prophylaxis Status: Acute Plan: Fluids: * Tolerating PO. * Not indicated at this time. Electrolyte: * Monitor and replete as necessary. Nutrition: * Regular diet. Prophylaxis: * Heparin 5,000 units SQ q8hrs while inpt. OOB with assistance as tolerated. (Elmira Mendez MD) Problem Qualifiers (1) Pelvic fracture: Qualified Codes: S32.401A - Unspecified fracture of right acetabulum, initial encounter for closed fracture (2) Compression fracture of L1 lumbar vertebra: Qualified Codes: S32.010A - Wedge compression fracture of first lumbar vertebra , initial encounter for closed fracture Elmira Mendez MD Aug 05, 2017 09:19 Clarice Cardoso MD Aug 05, 2017 09:36
[2017-08-05] MEDS: ASPIRIN 81 MG CHEW TAB CHEW SCH (09:47)
[2017-08-05] MEDS: DOCUSATE SODIUM 50 MG/SENNA 8.6 MG TAB PO SCH ×2 (09:47→20:24)
[2017-08-05] MEDS: CALCITONIN SALM 200 UNIT/SPRAY 3.7 ML BTLN NASAL SCH (10:44)
[2017-08-05] MEDS: MELATONIN 5 MG TAB PO PRN (23:38)
[2017-08-06] VITALS: BP 92/42; PULSE 79; RESP 16; TEMP 98.3; O2SAT 95
[2017-08-06] MEDS: CARBIDOPA/LEVODOPA 25 MG/100 MG TAB PO SCH ×2 (05:43→10:30)
[2017-08-06] MEDS: HEPARIN SODIUM - SQ 10,000 UNITS/ML VIAL SQ SCH ×2 (05:43→13:16)
[2017-08-06] MEDS: ACETAMINOPHEN 325 MG TAB PO PRN ×3 (05:43→14:31)
[2017-08-06 08:00] VITALS: BP 108/44; PULSE 70; RESP 16; TEMP 99; O2SAT 95
[2017-08-06] MEDS: CALCITONIN SALM 200 UNIT/SPRAY 3.7 ML BTLN NASAL SCH (09:00)
[2017-08-06] MEDS: DOCUSATE SODIUM 50 MG/SENNA 8.6 MG TAB PO SCH (09:26)
[2017-08-06] MEDS: SODIUM CHLORIDE 0.9% FLUSH 10 ML FLUSH IV FLUSH SCH (09:26)
[2017-08-06] MEDS: ASPIRIN 81 MG CHEW TAB CHEW SCH (09:26)
[2017-08-06 12:00] VITALS: BP 94/49; PULSE 74; RESP 18; TEMP 98.5; O2SAT 96
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
--- NOTE | 2017-08-06 13:41 | HHI.DS ---
Discharge Summary Admission Date Aug 01, 2017 at 22:53 Discharge Date: Aug 06, 2017 Admitting Diagnosis Pelvic Fracture (1) Pelvic fracture Diagnosis: Principal Plan: Imaging: * Pelvic CT: Fractures of the anterior right acetabular column extending into superior pubic ramus and mildly comminuted fracture of the right inferior pubic ramus. 9mm calcified stone lower pole right kidney. * Shoulder X-ray: No evidence of fracture or dislocation. * Chest X-ray: Infiltrate or atelectasis medial left lower lung. Medications: * Tylenol 650mg q4hr PO PRN Temp >101, Pain 1-10, Headache Orders: * Activity: OOB with assistance * Vital signs q4hr. * PT Consult -->PT at rehab * Continue conservative management this time * Continue calcitonin nasal spray PRN ICD Codes: S32.9XXA - Fracture of unspecified parts of lumbosacral spine and pelvis, initial encounter for closed fracture Status: Acute (2) Compression fracture of L1 lumbar vertebra Diagnosis: Principal Plan: L-spine xray: Mild to moderate compression fracture of L1 -Continue pain control as above -Conservative management -PT ICD Codes: S32.010A - Wedge compression fracture of first lumbar vertebra, initial encounter for closed fracture (3) Fall Diagnosis: Principal Plan: Per patient's medical records, patient fell on Saturday and was noted to have difficulty walking. An x-ray was ordered, showing multiple fractures involving the pelvis. Dr. Mcintyre, family medicine, recommended patient present to the ED. Labs/Studies/Imaging/Orders: * Troponin I: Less than 0.02. * EKG sinus rhythm * monitoring analyst/telemetry discontinued Others: * See Plan for Pelvic fracture. ICD Codes: W19.XXXA - Unspecified fall, initial encounter Status: Acute (4) Parkinsons disease Diagnosis: Secondary Plan: Patient with history of Parkinson's disease and associated dementia. * Continue home Carbidopa-Levodopa 25-100mg 1 tab q6hr PO. ICD Codes: G20 - Parkinson's disease Status: Chronic Consultants Case Mgmt Brief History Patient is an 81 year old female with a past medical history significant of Parkinson's disease with dementia who presents to the [facility] ED from [facility]. History of present illness is difficult to obtain due to patient's mental state. Per patient's medical records, patient fell on Saturday and was noted to have difficulty walking. An x-ray was ordered, showing multiple fractures involving the pelvis. Dr. Mcintyre, family medicine, recommended patient present to the ED. Per patient, she may have fallen twice over the last few days. She doesn't remember the circumstances around the falls but denies loss of consciousness. She admits to difficulty walking due to pain. She reports pain along her entire back involving the midline with worse pain toward the right-side; she attributes the back pain to strained muscles following exercise. She had not been taking any pain medication. CBC/BMP: 08/02/17 0608/02/17600 Imaging Last Impressions Thoracic Spine X-Ray 08/01/17 Signed Impressions: Service Date/Time: July 23:26 - CONCLUSION: Intact thoracic spine. Mild diffuse degenerative disc disease. Bridger Mahoney MD Shoulder X-Ray 08/01/17 Signed Impressions: Service Date/Time: July 20:00 - CONCLUSION: No evidence of fracture or dislocation. Ramón Hui MD Pelvis CT 08/01/17 Signed Impressions: Service Date/Time: July 20:06 - CONCLUSION: 1. Fractures of the anterior right acetabular column extending into superior pubic ramus and mildly comminuted fracture of the right inferior pubic ramus. 2. 9 mm calcified stone lower pole right kidney, partially included in the [id number] exam. Ramón Hui MD Lumbar Spine X-Ray 08/01/17 Signed Impressions: Service Date/Time: July 23:28 - CONCLUSION: 1. Mild to moderate compression fracture of L1 without evidence of retropulsed fracture fragments. 2. Otherwise intact lumbar spine. Multilevel degenerative changes as above and including grade 1 degenerative appearing anterolisthesis of L4/L5. Bridger Mahoney MD Chest X-Ray 08/01/17 Signed Impressions: Service Date/Time: July 20:00 - CONCLUSION: Infiltrate or atelectasis medial left lower lung. Ramón Hui MD Cervical Spine X-Ray 08/01/17 Signed Impressions: Service Date/Time: July 23:09 - CONCLUSION: Intact cervical spine. Multilevel degenerative changes are present. Bridger Mahoney MD PE at Discharge GENERAL: This is a well-nourished, well-developed elderly female, in no apparent distress, sitting up in bed. SKIN: Warm and dry. Dime-sized scab surrounded by large area of blanchable erythema over coccyx, stable, not re-examined today. CARDIOVASCULAR: Regular rate and rhythm without murmurs, gallops, or rubs. RESPIRATORY: Clear to auscultation. Breath sounds equal bilaterally. No wheezes , rales, or rhonchi. GASTROINTESTINAL: Positive bowel sounds. Abdomen soft, non-tender, nondistended. No hepato-splenomegaly, or palpable masses. No guarding. BACK/HIP: Non-tender to palpation. MUSCULOSKELETAL: No calf tenderness. NEUROLOGICAL: Awake and alert. Resting tremor at baseline. Normal speech. Hospital Course Patient was admitted for pain control and three-midnight stay for SNF placement after fall resulting in pelvic fracture. Previously patient was ambulatory. Pain management has been uncomplicated; patient discharged with Tylenol PRN. No significant chronic disease management required aside from continuing Carbidopa-Levidopa at home dose (25-100mg every 6hr). Patient completed three-midnight stay and discharge was placed 08/04/2017 into patient's chart. There was a delay in hospital discharge due to insurance claims which needed to be evaluated, now cleared up per Case Mgmt. Patient to be discharged to [facility] on 08/06/2017. Pt Condition on Discharge: Stable Discharge Disposition: Discharge to SNF Discharge Instructions DIET: Follow Instructions for: As Tolerated, No Restrictions Activities you can perform: Weight Bearing as Inderjit Follow up Referrals: PCP Follow-up - 3-5 Days New Medications: Acetaminophen (Eq Acetaminophen) 325 Mg Tab 650 MG PO Q4H PRN for TEMP>101F, PAIN 1-10, HEADACHE, #180 TAB Continued Medications: Aspirin (Aspirin Low Dose) 81 Mg Chew 81 MG CHEW DAILY, TAB 0 Refills Calcium Carbonate (Antacid) (Calcium Carbonate (Antacid)) 500 Mg Chew 500 MG CHEW BID PRN for HEARTBURN, TAB 0 Refills Carbidopa-Levodopa (Carbidopa-Levodopa) 25-100 Mg Tab 1 TAB PO QID for Parkinson Disease Mgmt, #120 TAB 5 Refills Cholecalciferol (Vitamin D3) 2,000 Unit Cap 2000 UNITS PO DAILY for Nutritional Supplement, #1 BOTTLE 0 Refills Docusate Sodium (Colace) 100 Mg Capsule 200 MG PO HS for Prevent Constipation, #30 CAP 0 Refills Melatonin (Melatonin) 10 Mg-1 Mg Tab 10 MG PO HS PRN for SLEEP, TAB 0 Refills Discontinued Medications: Carbidopa-Levodopa (Sinemet) 25-100 Mg Tab 1 TAB PO Q6HR for Parkinson Disease Mgmt, #90 TAB 0 Refills Elmria Mendez MD Aug 06, 2017 13:41
--- NOTE | 2017-08-18 10:50 | PQ ---
Physician Query Response Document PATIENT: JORDAN FLOWERS : 1935 ADMIT DATE: 08/01/2017 10:53 PM DISCH DATE: 08/06/2017 3:53 PM RESPONDING PROVIDER #: Neha QUERY TEXT: Clinical Significance The diagnosis documented below requires documentation to state the clinical significance: 1) Infiltrate/atelectasis lt. lower lung. 2) Scab/erythema over coccyx. Please respond and also state in your next progress note whether the condition is: -- Clinically insignificant -- Clinically significant, and please also state why it is clinically significant -- Unable to determine clinical significance -- Other, please specify If you have any additional questions/comments and/or concerns, please do not hesitate to reach out to the CDI/Coding Hotline, Ext. [phone]. The patient's Clinical Indicators include: 1) H Impressions: Service Date/Time: July 20:00 - CONCLUSION: Infiltrate or atelectasis medial left lower lung. No respiratory treatments nor antibiorics ordered. 2) H No evaluation by Wound Care nursing ordered. Query created by: Miranda Pak on 08/13/2017 3:11 PM RESPONSE TEXT: The cxr findings are clinically insignificant, as is the finding of erythema over the coccyx. Electronically signed by: Clarice Cardoso MD 08/18/2017 10:46 AM
== END 2017-08-06 15:53 | DRG 536 ==
LOC: NEPE 17:58 → UNDOADMIN 21:53 → NEDA 21:53 → INTOOBSV 22:17 → NEDA 22:17 → UNDOADMOB 22:17 → INTOOBSV 22:53 → NEDA 22:53 → OBSVTOIN 22:53 → NEDH 08-02 03:48 → N06A 08-02 13:00
PROVIDERS: ADMIT Family Medicine; ATTEND Family Medicine
DX: S32.431A Displaced fracture of anterior column [iliopubic] of right acetabulum, initial encounter for closed fracture (principal); S32.591A Other specified fracture of right pubis, initial encounter for closed fracture; S32.010A Wedge compression fracture of first lumbar vertebra, initial encounter for closed fracture; W19.XXXA Unspecified fall, initial encounter; Y92.099 Unspecified place in other non-institutional residence as the place of occurrence of the external cause; G20 Parkinson's disease; F02.80 Dementia in other diseases classified elsewhere, unspecified severity, without behavioral disturbance, psychotic disturbance, mood disturbance, and anxiety; Z66 Do not resuscitate; Z91.81 History of falling
CPT/HCPCS: 71045; 72040; 72072; 72100; 72192; 73030; 80048; 80053; 84484; 85007; 85025; 85027; 85610; 85730; 93005; J1644

== ENCOUNTER 2017-10-11 22:36 | Inpatient (IN) | payer MEDICARE, OTHER ==
[~2017-10-11] VITALS: Ht 157.5 cm; Wt 49.4 kg
[~2017-10-11 22:36] MED LIST changes: +ACET325T15 PO; +ASPI81CH6 CHEW; +COLA100C5 PO; +MELA1TAB18 PO
[2017-10-11 22:47] VITALS: BP 120/59; PULSE 74; RESP 18; TEMP 98.7; O2SAT 99
[2017-10-11] MEDS ORDERED: SODIUM CHLORIDE 0.9% FLUSH 10 ML FLUSH IVF PRN (23:00)
[2017-10-11 23:36] LABS: AUTOMATED NEUTROPHIL # 7.2 TH/MM3 (1.8-7.7); BASOPHIL % 0.4 % (0.0-2.0); EOSINOPHIL # 0.1 TH/MM3 (0-0.4); EOSINOPHIL % 1.3 % (0.0-4.0); HEMATOCRIT 29.8 % (35.0-46.0); LYMPH % 11.5 % (9.0-44.0); MEAN CELL VOLUME 99.2 FL (80.0-100.0); MEAN CORPUSCULAR HEMOGLOBIN 33.2 PG (27.0-34.0); MEAN CORPUSCULAR HGB CONC 33.5 % (32.0-36.0); MEAN PLATELET VOLUME 7.3 FL (7.0-11.0); MONO % 6.9 % (0.0-8.0); MONOCYTE # 0.6 TH/MM3 (0-0.9); NEUT % 79.9 % (16.0-70.0); PLATELET COUNT 292 TH/MM3 (150-450); RED BLOOD COUNT 3.01 MIL/MM3 (4.00-5.30); RED CELL DISTRIBUTION WIDTH 14.5 % (11.6-17.2)
[2017-10-11 23:51] LABS: ALBUMIN 2.7 GM/DL (3.4-5.0); ALT (GPT) 10 U/L (10-53); AST (GOT) 19 U/L (15-37); BICARBONATE 31.2 MEQ/L (21.0-32.0); BLOOD UREA NITROGEN 25 MG/DL (7-18); CALCIUM 8.2 MG/DL (8.5-10.1); CHLORIDE 106 MEQ/L (98-107); CREATININE 0.74 MG/DL (0.50-1.00); GLOMERULAR FILTRATION RATE 75 ML/MIN (>89); GLUCOSE,RANDOM 96 MG/DL (74-106); SODIUM (NA) 144 MEQ/L (136-145)
[2017-10-11 23:54] LABS: ALKALINE PHOSPHATASE 77 U/L (45-117); TOTAL BILIRUBIN ADULT 0.4 MG/DL (0.2-1.0); TOTAL PROTEIN 6.3 GM/DL (6.4-8.2)
[2017-10-12] VITALS (14 sets, daily range): BP systolic 89–151; BP diastolic 56–87; PULSE 60–90; RESP 14–24; TEMP 97–98.4; O2SAT 93–100
--- NOTE | 2017-10-12 00:01 | PD ---
HPI Chief Complaint: Bleeding Time Seen by Provider: 23:39 Travel History International Travel<30 days: No Contact w/Intl Traveler<30days: No Traveled to known affect area: No History of Present Illness HPI This is an 82 year old female who presents to the emergency department with blood clots from her rectum reported by her skilled nursing. The patient reports she had some small blood clots but she thought it was in her urine, mild, prior to arrival, with no associated lightheadedness or dizziness. She does not recall having a colonoscopy in the past. She is on a baby aspirin but no other blood thinners.. PFSH Past Medical History Cardiovascular Problems: Yes (VENOUS INSUFFICIENCY ) Dementia: Yes Diabetes: No Patient Takes Glucophage: No Diminished Hearing: Yes Neurologic: Yes (PARKINSONS DISEASE) Immunizations Current: Yes Tetanus Vaccination: Unknown Influenza Vaccination: Yes ?: Not : 0 Social History Alcohol Use: Yes (SOCIAL) Tobacco Use: No Substance Use: No Allergies-Medications (Allergen,Severity, Reaction): Coded Allergies: penicillin G (Unverified Allergy, Severe, Anaphylaxis, 10/11/17) Reported Meds & Prescriptions Reported Meds & Active Scripts Active Eq Acetaminophen (Acetaminophen) 325 Mg Tab 650 Mg PO Q4H PRN [PRASAD knee high stock] Units DIRECTED PRASAD knee high stockings; apply each morning as soon as out of bed and remove at bedtime Carbidopa-Levodopa 25-100 Mg Tab 1 Tab PO QID Reported Melatonin 10 Mg-1 Mg Tab 10 Mg PO HS PRN Aspirin Low Dose (Aspirin) 81 Mg Chew 81 Mg CHEW DAILY Colace (Docusate Sodium) 100 Mg Capsule 200 Mg PO HS Calcium Carbonate (Antacid) 500 Mg Chew 500 Mg CHEW BID PRN Vitamin D3 (Cholecalciferol) 2,000 Unit Cap 2,000 Units PO DAILY Review of Systems Except as stated in HPI: all other systems reviewed are Neg Physical Exam Narrative GENERAL: Pale, frail elderly female SKIN: Warm and dry. HEAD: Atraumatic. Normocephalic. EYES: Pupils equal and round. No scleral icterus. No injection or drainage. ENT: No nasal bleeding or discharge. Mucous membranes pink and moist. NECK: Trachea midline. CARDIOVASCULAR: Regular rate and rhythm. RESPIRATORY: No accessory muscle use. Clear to auscultation. Breath sounds equal bilaterally. GASTROINTESTINAL: Abdomen soft, non-tender, nondistended. Bright red blood around the rectum. MUSCULOSKELETAL: No obvious deformities. NEUROLOGICAL: Awake and alert. Oriented to person, place and time. No obvious cranial nerve deficits. Moving all extremities. PSYCHIATRIC: Appropriate mood and affect; insight and judgment normal. Data Data Last Documented VS Vital Signs Date Time Temp Pulse Resp B/P (MAP) Pulse Ox O2 Delivery O2 Flow Rate FiO2 10/11/17 22:47 98.7 74 18 120/59 (79) 99 Orders Orders Complete Blood Count With Diff (10/11/17 22:59) Comprehensive Metabolic Panel (10/11/17 22:59) Prothrombin Time / Inr (Pt) (10/11/17 22:59) Act Partial Throm Time (Ptt) (10/11/17 22:59) Urinalysis - C+S If Indicated (10/11/17 22:59) Type And Screen (10/11/17 22:59) Ecg Monitoring (10/11/17 22:59) Iv Access Insert/Monitor (10/11/17 22:59) Oximetry (10/11/17 22:59) Sodium Chloride 0.9% Flush (Ns Flush) (10/11/17 23:00) Labs Laboratory Tests Test 10/11/17 23:00 White Blood Count 9.0 TH/MM3 Red Blood Count 3.01 MIL/MM3 Hemoglobin 10.0 GM/DL Hematocrit 29.8 % Mean Corpuscular Volume 99.2 FL Mean Corpuscular Hemoglobin 33.2 PG Mean Corpuscular Hemoglobin Concent 33.5 % Red Cell Distribution Width 14.5 % Platelet Count 292 TH/MM3 Mean Platelet Volume 7.3 FL Neutrophils (%) (Auto) 79.9 % Lymphocytes (%) (Auto) 11.5 % Monocytes (%) (Auto) 6.9 % Eosinophils (%) (Auto) 1.3 % Basophils (%) (Auto) 0.4 % Neutrophils # (Auto) 7.2 TH/MM3 Lymphocytes # (Auto) 1.0 TH/MM3 Monocytes # (Auto) 0.6 TH/MM3 Eosinophils # (Auto) 0.1 TH/MM3 Basophils # (Auto) 0.0 TH/MM3 CBC Comment DIFF FINAL Differential Comment Blood Urea Nitrogen 25 MG/DL Creatinine 0.74 MG/DL Random Glucose 96 MG/DL Total Protein 6.3 GM/DL Albumin 2.7 GM/DL Calcium Level 8.2 MG/DL Alkaline Phosphatase 77 U/L Aspartate Amino Transf (AST/SGOT) 19 U/L Alanine Aminotransferase (ALT/SGPT) 10 U/L Total Bilirubin 0.4 MG/DL Sodium Level 144 MEQ/L Potassium Level 3.8 MEQ/L Chloride Level 106 MEQ/L Carbon Dioxide Level 31.2 MEQ/L Anion Gap 7 MEQ/L Estimat Glomerular Filtration Rate 75 ML/MIN MDM Medical Decision Making Medical Screen Exam Complete: Yes Emergency Medical Condition: Yes Differential Diagnosis hemmorhoids, anal fissure, colon polyp, diverticulosis Narrative Course This is an 82 year old female who presents to the emergency department with bright red blood per rectum. On exam she has a large amount of bright red blood around her rectum and she was noted by her skilled nursing to have passed clots. Pt has a hemoglobin of 10 which is similar to July. She will be placed in observation for serial hemoglobin checks and likely colonoscopy tomorrow. Diagnosis Primary Impression: Bright red blood per rectum Admitting Information Admitting Physician Requests: Observation Domenica Lomeli MD October 12, 2017 00:01
[2017-10-12] MEDS ORDERED: PANTOPRAZOLE SODIUM 40 MG VIAL IV PUSH ONE (00:15)
[2017-10-12] MEDS ORDERED: HALOPERIDOL LACTATE 5 MG/ML AMP IV PUSH ONE (01:15)
[2017-10-12] MEDS ORDERED: SODIUM CHLORIDE 0.9% FLUSH 10 ML FLUSH IV FLUSH PRN (01:45)
[2017-10-12] MEDS ORDERED: NALOXONE HCL 0.4 MG/ML AMP IV PUSH PRN (01:45)
--- NOTE | 2017-10-12 02:04 | HHI.HP ---
[facility] Service Family Medicine Primary Care Physician Unknown Admission Diagnosis bright red blood per rectum Diagnoses: International Travel<30 Days: No Contact w/Intl Traveler<30days: No Known Affected Area: No History of Present Illness The patient is an 82-year-old female with past medical history significant for Parkinson's disease with dementia who was sent from her fpc at [facility], [place] after reportedly passing large blood clots from her rectum. The patient is alert and oriented 3 at the time of interview and seems to be able to answer questions reliably. She does endorse passing blood clots for about 1 day duration. She denies any vaginal bleeding. Denies abdominal or pelvic pain , denies fevers. Denies melena or hematochezia. She denies urinary symptoms including no dysuria or gross hematuria. Denies fatigue, dizziness, lightheadedness, change in appetite. Denies any recent diarrhea or constipation. (Brian Richardson MD R2) Review of Systems Constitutional: DENIES: Fever, Chills, Change in appetite Eyes: DENIES: Blurred vision, Eye pain, Double Vision Respiratory: DENIES: Cough, Wheezing, Sputum production, Shortness of breath Cardiovascular: DENIES: Chest pain, Palpitations Gastrointestinal: DENIES: Abdominal pain, Black stools, Bloody stools, Constipation, Diarrhea, Nausea, Vomiting Genitourinary: DENIES: Abnormal vaginal bleeding, Hematuria, Dysuria Integumentary: DENIES: Rash Neurologic: COMPLAINS OF: Tremor, DENIES: Headache, Localized weakness ( Brian Richardson MD R2) Past Family Social History Past Medical History Parkinson's disease with mild dementia Multiple fracture sites of pelvis following a fall in 07/2017 Past Surgical History Colonoscopy in October 2005 (Brian Richardson MD R2) Allergies: Coded Allergies: penicillin G (Unverified Allergy, Severe, Anaphylaxis, 10/11/17) Family History Father: in his early 70s, had hypertension, coronary artery disease with previous CABG and kidney cancer. Mother: Lived to be 100 and of natural causes. Siblings: One brother alive and well. Children: No children. Social History Marrital Status: Single Living Situation: Living in an independent apartment at [facility], [place] Retired Tobacco: Nonsmoker Alcohol: None Illicit drug use: None (Brian Richardson MD R2) Physical Exam Vital Signs Vital Signs Date Time Temp Pulse Resp B/P (MAP) Pulse Ox O2 Delivery O2 Flow Rate FiO2 10/11/17 22:47 98.7 74 18 120/59 (79) 99 Physical Exam GENERAL: NAD, lying comfortably in bed. Significant resting tremor of bilateral hands. NEURO: Alert. Oriented to person, place, and date. Normal speech. massotherapist grossly intact. Motor grossly normal. SKIN: Warm and dry. No rashes or erythema. HEAD: Normocephalic. Atraumatic. EYES: PERRL. EOMI. No scleral icterus. No injection or drainage. No conjunctival pallor. ENT: No nasal drainage. Moist mucous membranes. No oral ulcers or lesions. NECK: Supple, trachea midline. No JVD or lymphadenopathy. CARDIOVASCULAR: Regular rate and rhythm without murmurs, rubs, or gallops. Peripheral pulses 2+. Capillary refill < 2 seconds. RESPIRATORY: Breath sounds clear to auscultation and equal bilaterally, without wheezes, rales, or rhonchi. No accessory muscle use. GASTROINTESTINAL: Abdomen soft, nontender, nondistended, normal BS. No organomegaly or masses. No rebound tenderness. No guarding. MUSCULOSKELETAL: No lower extremity edema. Normal range of motion. BACK: Nontender without obvious deformity. No CVA tenderness. Laboratory Laboratory Tests Test 10/11/17 23:00 White Blood Count 9.0 Red Blood Count 3.01 Hemoglobin 10.0 Hematocrit 29.8 Mean Corpuscular Volume 99.2 Mean Corpuscular Hemoglobin 33.2 Mean Corpuscular Hemoglobin Concent 33.5 Red Cell Distribution Width 14.5 Platelet Count 292 Mean Platelet Volume 7.3 Neutrophils (%) (Auto) 79.9 Lymphocytes (%) (Auto) 11.5 Monocytes (%) (Auto) 6.9 Eosinophils (%) (Auto) 1.3 Basophils (%) (Auto) 0.4 Neutrophils # (Auto) 7.2 Lymphocytes # (Auto) 1.0 Monocytes # (Auto) 0.6 Eosinophils # (Auto) 0.1 Basophils # (Auto) 0.0 CBC Comment DIFF FINAL Differential Comment Prothrombin Time 10.0 Prothromb Time International Ratio 1.0 Activated Partial Thromboplast Time 21.9 Blood Urea Nitrogen 25 Creatinine 0.74 Random Glucose 96 Total Protein 6.3 Albumin 2.7 Calcium Level 8.2 Alkaline Phosphatase 77 Aspartate Amino Transf (AST/SGOT) 19 Alanine Aminotransferase (ALT/SGPT) 10 Total Bilirubin 0.4 Sodium Level 144 Potassium Level 3.8 Chloride Level 106 Carbon Dioxide Level 31.2 Anion Gap 7 Estimat Glomerular Filtration Rate 75 (Brian Richardson MD R2) Result Diagram: 10/11/17229910/11/172299 Caprini VTE Risk Assessment Caprini VTE Risk Assessment: Mod/High Risk (score >= 2) Caprini Risk Assessment Model Point Value = 1 Point Value = 2 Point Value = 3 Point Value = 5 Age 41-60 Minor surgery BMI > 25 kg/m2 Swollen legs Varicose veins or History of unexplained or recurrent spontaneous Oral contraceptives or hormone replacement Sepsis (< 1 month) Serious lung disease, including pneumonia (< 1 month) Abnormal pulmonary function Acute myocardial infarction Congestive heart failure (< 1 month) History of inflammatory bowel disease Medical patient at bed rest Age 61-74 Arthroscopic surgery Major open surgery (> 45 min) Laparoscopic surgery (> 45 min) Malignancy Confined to bed (> 72 hours) Immobilizing plaster cast Central venous access Age >= 75 History of VTE Family history of VTE Factor V Leiden Prothrombin 38469A Lupus anticoagulant Anticardiolipin antibodies Elevated serum homocysteine Heparin-induced thrombocytopenia Other congenital or acquired thrombophilia Stroke (< 1 month) Elective arthroplasty Hip, pelvis, or leg fracture Acute spinal cord injury (< 1 month) Prophylaxis Regimen Total Risk Factor Score Risk Level Prophylaxis Regimen 0-1 Low Early ambulation 2 Moderate Order ONE of the following: *Sequential Compression Device (SCD) *Heparin 5000 units SQ BID 3-4 Higher Order ONE of the following medications: *Heparin 5000 units SQ TID *Enoxaparin/Lovenox 40 mg SQ daily (WT < 150 kg, CrCl > 30 mL/min) *Enoxaparin/Lovenox 30 mg SQ daily (WT < 150 kg, CrCl > 10-29 mL/min) *Enoxaparin/Lovenox 30 mg SQ BID (WT < 150 kg, CrCl > 30 mL/min) AND/OR *Sequential Compression Device (SCD) 5 or more Highest Order ONE of the following medications: *Heparin 5000 units SQ TID (Preferred with Epidurals) *Enoxaparin/Lovenox 40 mg SQ daily (WT < 150 kg, CrCl > 30 mL/min) *Enoxaparin/Lovenox 30 mg SQ daily (WT < 150 kg, CrCl > 10-29 mL/min) *Enoxaparin/Lovenox 30 mg SQ BID (WT < 150 kg, CrCl > 30 mL/min) AND *Sequential Compression Device (SCD) (Brian Richardson MD R2) Assessment and Plan Assessment and Plan 82-year-old female with past medical history significant for Parkinson's disease with dementia being admitted to observation after report from her fpc passing large blood clots per rectum and noted to have bright red blood per rectum on evaluation in the ED. Code Status DNR/DNI Discussed Condition With Dr. Lomeli Will discuss with medicine service (Brian Richardson MD R2) Attending Attestation Patient seen and examined. Discussed with Dr. Mercer. Agree with physical findings, assessment and plan as documented. (Prevatte,Lon Schumacher Jr., MD) Problem List: (1) Bright red blood per rectum ICD Codes: K62.5 - Hemorrhage of anus and rectum Status: Acute Plan: Initial Hgb 10.0, noted to be at baseline of 10.0 from her prior Hgb from 07/2017 Noted to have bright red blood around the rectum per ED physician Vital signs are stable, patient appears comfortable and asymptomatic at this time Will trend H/H q6h NPO for now Continue Protonix 40 mg IV q12h Appreciate gastroenterology consult (2) Parkinson disease ICD Codes: G20 - Parkinson's disease Plan: Resume home Carbidopa in the AM if H/H stable (3) Fluid, Electrolyte, Nutrition, and Prophylaxis Status: Acute Plan: Fluids: NS at maintenance rate Electrolytes: within normal limits Nutrition: NPO DVT ppx: b/l SCDs, chemical anticoagulation contraindicated at this time GI ppx: Protonix (Brian Richardson MD R2) Physician Certification 2 Midnight Certification Type: Admission for Inpatient Services Order for Inpatient Services The services are ordered in accordance with Medicare regulations or non- Medicare payer requirements, as applicable. In the case of services not specified as inpatient-only, they are appropriately provided as inpatient services in accordance with the 2-midnight benchmark. Estimated LOS (days): 2 days is the estimated time the patient will need to remain in the hospital, assuming treatment plan goals are met and no additional complications. Post-Hospital Plan: [facility] (Brian Richardson MD R2) Brian Richardson MD R2 October 12, 2017 02:04 PrevLon hudson Jr., MD October 12, 2017 14:05
[2017-10-12] MEDS: SODIUM CHLOR 0.9% 1000 ML INJ 1,000 ML IV SCH ×3 (02:56→21:05)
[2017-10-12] MEDS: SODIUM CHLORIDE 0.9% FLUSH 10 ML FLUSH IV FLUSH SCH ×3 (02:56→21:05)
[2017-10-12 04:25] LABS: HEMATOCRIT 26.1 % (35.0-46.0); HEMOGLOBIN 8.9 GM/DL (11.6-15.3)
[2017-10-12] MEDS ORDERED: SODIUM CHLOR 0.9% 250 ML INJ 250 ML IV ONE (04:45)
--- NOTE | 2017-10-12 05:08 | HHI.FPPN ---
Addendum to progress note ADDENDUM Reason for addendum: Additonal documentation Additional information Returned page from RN regarding the patient having passage of blood clots per rectum. RN stated this had been ongoing for about the past one hour and stated she felt it had worsened more recently. Stat H/H was drawn on the patient. Patient seen and examined. Vital signs are within normal limits and patient does not appear to be in any acute distress or in pain. She denies abdominal pain. P/E: BPs 120s/70s Pulse 70s RR non-labored POx 98% Afebrile GENERAL: NAD, lying flat in bed NEURO: Alert and oriented. Normal speech. radio interference trouble shooter grossly intact. SKIN: Warm and dry. No rashes or erythema. HEAD: Normocephalic. Atraumatic. EYES: EOMI. No conjunctival pallor. CARDIOVASCULAR: Regular rate and rhythm without murmurs, rubs, or gallops. Peripheral pulses 2+. RESPIRATORY: Breath sounds clear to auscultation and equal bilaterally, without wheezes, rales, or rhonchi. No accessory muscle use. GASTROINTESTINAL: Abdomen more firm than prior examination but not rigid or hard , nontender throughout, nondistended, normal BS throughout. No masses appreciated. No rebound tenderness. No guarding. RECTAL: Bright red blood with passage of clots and likely stool around the rectum, about 1-2 cups amount MUSCULOSKELETAL: No lower extremity edema. A/P: 82 year old female admitted following passage of blood clots per rectum at her care home earlier tonight, now noted to have continued passage of blood clots. Consider bowel perforation, internal hemorrhoids, diverticulosis, anal fissures, angiodysplasia, colitis. - Stat H/H of 8.9/26.1, will transfuse 1 unit PRBCs as her Hgb is noted to have dropped by over a point in the past four hours - Ordered stat GI bleeding scan, as well as stat flat and upright abdominal x- ray due to concern that abdomen is more firm than prior exam - Consider stat GI or general surgery consult based on results of above imaging - Vital signs are within normal limits, will transfer to a unit bed however for close monitoring of vitals - External collecting bag applied to drain any further blood and rectal contents. Noted to have no further drainage - The patient was re-evaluated in the [facility] and noted to be in no acute distress. Rectal bleeding has subsided per RN and vitals remain WNL. Patient to be transferred to nuclear for bleeding scan Brian Richardson MD R2 October 12, 2017 05:08
--- NOTE | 2017-10-12 05:29 | RADRPT ---
EXAM DATE/TIME: 10/12/2017 04:43 [facility] COMPARISON: No previous studies available for comparison. INDICATIONS : G-I Bleed. MEDICAL HISTORY : Parkinson's SURGICAL HISTORY : ENCOUNTER: Initial ACUITY: 1 day PAIN SCORE: 0/10 LOCATION: Bilateral Abdomen FINDINGS: Supine and upright views of the abdomen were performed. The abdominal bowel gas pattern is normal. No air fluid levels are seen. Probable calcified fibroids. The visualized lower lungs are clear. No evidence of free intraperitoneal gas. The osseous structures demonstrate subacute fractures of the r ight superior and inferior pubic ramus. CONCLUSIO Nonspecific bowel gas pattern. Small calcified fibroids in the uterus. Subacute fractures right acetabulum and superior and inferior pubic ramus. Aaron Sims MD on October 12, 2017 at 5:27 Board Certified Radiologist. This report was verified electronically.
--- NOTE | 2017-10-12 09:10 | RADRPT ---
EXAM DATE/TIME: 10/12/2017 06:19 [facility] COMPARISON: No previous studies available for comparison. INDICATIONS : Rectal bleeding. DOSE: 21.2 mCi Tc99m Ultratag labeled red blood cells IV IMAGIN hrs MEDICAL HISTORY : Parkinson's. Dementia. SURGICAL HISTORY : None. ENCOUNTER: Initial ACUITY: 1 day PAIN SCALE: 0/10 LOCATION: Bilateral lower quadrant TECHNIQUE: Following the modified in vitro labeling of autologous red cells, dynamic continuous images were acqu ired for the specified interval. FINDINGS: BIODISTRIBUTION: There is a very good labeling of red cells without significant uptake in the gastric wall. There is good delineation of the blood pool of the spleen and abdominal vessels. BLEEDING: Several episodes of active GI bleeding are seen during examination with the point of origin in the mi dline abdomen approximately the level of the aortic bifurcation. Cannot differentiate between small and large bowel. The peristaltic pattern also is nonspecific with regard to small or large bowel elham gin. CONCLUSION: Several episodes of active GI bleeding with site of origin midline abdominal pelvic junction, nonspec ific with regard to small versus large bowel. Ramón Hui MD on October 12, 2017 at 9:06 Board Certified Radiologist. This report was verified electronically.
--- NOTE | 2017-10-12 09:37 | PD.CONS ---
HPI History of Present Illness This is a 82 year old F with PMH significant for Parkinson's disease and dementia, she is able to answer some questions but unable to provide much of a history, therefore most of the history has been obtained from the chart. Pt was sent to the ER from her [facility] for reports of passing large clots of blood per her rectum. During my exam the RN is preparing to clean the patient because she has had multiple since admission. Pt in no apparent distress, denies any abdominal pain at this time. She is unsure if she has ever had an EGD or colonoscopy, according to chart had a colonoscopy in 2005. She takes a low dose ASA daily, no other blood thinners noted. Bleeding scan revealed several episodes of active GI bleeding with site of origin midline abdominal pelvic junction, nonspecific with regard to small versus large bowel. (Toña Valdez) PFSH Past Medical History Parkinson's disease Dementia (Toña Valdez) Coded Allergies: penicillin G (Unverified Allergy, Severe, Anaphylaxis, 10/11/17) Review of Systems Gastrointestinal: COMPLAINS OF: Bloody stools, Diarrhea, DENIES: Abdominal pain , Nausea, Vomiting (Toña Valdez) GI Exam Vitals I&O Vital Signs Date Time Temp Pulse Resp B/P (MAP) Pulse Ox O2 Delivery O2 Flow Rate FiO2 10/12/17 08:00 77 10/12/17 08:00 78 16 101/57 (72) 96 10/12/17 07:00 96 Room Air 10/12/17 06:00 78 10/12/17 04:45 98.0 78 16 139/66 (90) 98 10/12/17 02:46 98.4 70 16 118/56 (76) 97 10/11/17 22:47 98.7 74 18 120/59 (79) 99 I/O 10/11/17 10/11/17 10/11/17 10/12/17 10/12/17 10/12/17 06:59 14:59 22:59 06:59 14:59 22:59 Output Total 200 ml Balance -200 ml Output Urine Total 200 ml Imaging Last Impressions GI Bleed Scan Nuclear Medicine 10/12/17 0000 Signed Impressions: Service Date/Time: Thursday, October 12, 2017 06:19 - CONCLUSION: Several episodes of active GI bleeding with site of origin midline abdominal pelvic junction, nonspecific with regard to small versus large bowel. Ramón Hui MD Laboratory Test 10/11/17 23:00 10/12/17 04:13 10/12/17 04:55 White Blood Count 9.0 TH/MM3 Red Blood Count 3.01 MIL/MM3 Hemoglobin 10.0 GM/DL 8.9 GM/DL Hematocrit 29.8 % 26.1 % Mean Corpuscular Volume 99.2 FL Mean Corpuscular Hemoglobin 33.2 PG Mean Corpuscular Hemoglobin Concent 33.5 % Red Cell Distribution Width 14.5 % Platelet Count 292 TH/MM3 Mean Platelet Volume 7.3 FL Neutrophils (%) (Auto) 79.9 % Lymphocytes (%) (Auto) 11.5 % Monocytes (%) (Auto) 6.9 % Eosinophils (%) (Auto) 1.3 % Basophils (%) (Auto) 0.4 % Neutrophils # (Auto) 7.2 TH/MM3 Lymphocytes # (Auto) 1.0 TH/MM3 Monocytes # (Auto) 0.6 TH/MM3 Eosinophils # (Auto) 0.1 TH/MM3 Basophils # (Auto) 0.0 TH/MM3 CBC Comment DIFF FINAL Differential Comment Prothrombin Time 10.0 SEC Prothromb Time International Ratio 1.0 RATIO Activated Partial Thromboplast Time 21.9 SEC Blood Urea Nitrogen 25 MG/DL Creatinine 0.74 MG/DL Random Glucose 96 MG/DL Total Protein 6.3 GM/DL Albumin 2.7 GM/DL Calcium Level 8.2 MG/DL Alkaline Phosphatase 77 U/L Aspartate Amino Transf (AST/SGOT) 19 U/L Alanine Aminotransferase (ALT/SGPT) 10 U/L Total Bilirubin 0.4 MG/DL Sodium Level 144 MEQ/L Potassium Level 3.8 MEQ/L Chloride Level 106 MEQ/L Carbon Dioxide Level 31.2 MEQ/L Anion Gap 7 MEQ/L Estimat Glomerular Filtration Rate 75 ML/MIN Nasal Screen MRSA (PCR) MRSA NOT DETECTED Physical Examination HEENT: Normocephalic; atraumatic CHEST: Even/unlabored CARDIAC: RRR ABDOMEN: Soft, nondistended, nontender; bowel sounds active EXTREMITIES: No clubbing, cyanosis, or edema. SKIN: Pale ASSET RECOVERY SPECIALIST: Alert and oriented x 3, poor historian (Toña Valdez) Assessment and Plan Plan Assessment: - [facility]- sent from [place] for evaluation, has had multiple blood BMs since arrival. NM bleeding scan revealed several episodes of active GI bleeding with site of origin midline abdominal pelvic junction, nonspecific with regard to small versus large bowel Hgb on admission 10, 4 hour repeat at 8.9 She can not recall having an EGD or colonoscopy in the past Daily low dose ASA, no other blood thinners noted in chart Plan: Colonoscopy today Obtain consent Keep NPO 1 U PRBCs per attending Stool studies Serial H/H Further recommendations based on results of above Pt has been seen and examined by myself and Dr. Healy and this note is written on her behalf (Toña Valdez) Physician Comments sen, examined agree with above consider IR for angiogram if further bleeding (Wendy Healy MD) Toña Valdez October 12, 2017 09:37 Wendy Healy MD October 12, 2017 12:38
--- NOTE | 2017-10-12 10:00 | HHI.FPPN ---
Subjective Remarks Patient seen and examined this morning. Overnight, per RN did have passage of blood clots per rectum. This morning, patient also with bright red blood per rectum. Patient denies any abdominal pain. Denies any fever/chills, dizziness. (Sánchez Mercer MD R2) Objective Vitals Vital Signs Date Time Temp Pulse Resp B/P (MAP) Pulse Ox O2 Delivery O2 Flow Rate FiO2 10/12/17 08:00 77 10/12/17 08:00 78 16 101/57 (72) 96 10/12/17 07:00 96 Room Air 10/12/17 06:00 78 10/12/17 04:45 98.0 78 16 139/66 (90) 98 10/12/17 02:46 98.4 70 16 118/56 (76) 97 10/11/17 22:47 98.7 74 18 120/59 (79) 99 I/O 10/11/17 10/11/17 10/11/17 10/12/17 10/12/17 10/12/17 07:00 15:00 23:00 07:00 15:00 23:00 Output Total 200 ml Balance -200 ml Output Urine Total 200 ml (Sánchez Mercer MD R2) Result Diagram: 10/12/17 0413 10/11/17 2300 Imaging Last Impressions GI Bleed Scan Nuclear Medicine 10/12/17 0000 Signed Impressions: Service Date/Time: Thursday, October 12, 2017 06:19 - CONCLUSION: Several episodes of active GI bleeding with site of origin midline abdominal pelvic junction, nonspecific with regard to small versus large bowel. Ramón Hui MD Objective Remarks GENERAL: NAD, lying in bed SKIN: Warm and dry. CARDIOVASCULAR: Regular rate and rhythm. RESPIRATORY: No accessory muscle use. Clear to auscultation. Breath sounds equal bilaterally. GASTROINTESTINAL: Abdomen soft, non-tender, nondistended. MUSCULOSKELETAL: Extremities without clubbing, cyanosis, or edema. NEUROLOGICAL: Awake and alert. No obvious cranial nerve deficits. Normal speech. (Sánchez Mercer MD R2) A/P Assessment and Plan 82-year-old female with past medical history significant for Parkinson's disease with dementia being admitted to observation after report from her shelter passing large blood clots per rectum and noted to have bright red blood per rectum on evaluation in the ED. Discharge Planning Pending GI workup (Sánchez Mercer MD R2) Attending Attestation Patient seen and examined. Discussed with Dr. Mercer. For details of PMH, SH, FH , ROS see Dr. Richardson's note. Agree with assessment and plan as documented. (Lon Mcintyre Jr., MD) Problem List: (1) Bright red blood per rectum ICD Codes: K62.5 - Hemorrhage of anus and rectum Status: Acute Plan: Initial Hgb 10.0, noted to be at baseline of 10.0 from her prior Hgb from 07/2017 Noted to have bright red blood around the rectum per ED physician Vital signs are stable, patient appears comfortable and asymptomatic at this time Bleeding scan: several episodes of active GI bleeding with site of origin midline abdominal pelvic junction, nonspecific with regard to small versus large bowel Abdominal xray: no acute disease -Ordered 1 unit pRBC overnight s/p transfusion H/H Will trend H/H q6h NPO for now Continue Protonix 40 mg IV q12h Appreciate gastroenterology consult (2) Parkinson disease ICD Codes: G20 - Parkinson's disease Plan: Resume home Carbidopa (3) Fluid, Electrolyte, Nutrition, and Prophylaxis Status: Acute Plan: Fluids: NS at maintenance rate Electrolytes: within normal limits Nutrition: NPO DVT ppx: b/l SCDs, chemical anticoagulation contraindicated at this time GI ppx: Protonix (Sánchez Mercer MD R2) Sánchez Mercer MD R2 October 12, 2017 10:00 Lon Mcintyre Jr., MD October 12, 2017 14:10
[2017-10-12] MEDS ORDERED: PROPOFOL 200 MG/20 ML AMP IV ONE (12:00)
[2017-10-12] MEDS: PANTOPRAZOLE SODIUM 40 MG VIAL IV PUSH SCH ×2 (12:00→23:48)
[2017-10-12] MEDS ORDERED: PHENYLEPH/NS 1000 MCG/10 ML SYR IV ONE (12:00)
[2017-10-12] MEDS ORDERED: ePHEDrine/NS 25 MG/5 ML SYRINGE IV ONE (12:00)
[2017-10-12] MEDS ORDERED: LIDOCAINE HCL 1% PF 5 ML SYRINGE OTHER ONE (12:00)
--- NOTE | 2017-10-12 12:45 | GIPROC ---
[facility] [address] [facility]. [facility], [address] COLONOSCOPY PROCEDURE REPORT EXAM DATE: 10/12/2017 PATIENT NAME: Kelley Garcia MR #: [id number] BIRTHDATE: 1935 ENDOSCOPIST: Wendy Healy MD ORDER #: [id number] WAREHOUSE CONSULTANT: Kuldeep Bess and Eli Arizmendi STATUS: inpatient INDICATIONS: The patient is a 82 yr old female here for a colonoscopy due to gi bleeding, positive bleeding scan PROCEDURE PERFORMED: Colonoscopy, diagnostic Colonoscopy, incomplete MEDICATIONS: None and Per Anesthesia. PREP QUALITY: poor PREP TYPE:Other: ESTIMATED BLOOD LOSS: None CONSENT: The patient understands the risks and benefits of the procedure and understands that these risks include, but are not limited to: sedation, allergic reaction, infection, perforation and/or bleeding. Alternative means of evaluation and treatment include, among others: physical exam, x-rays, and/or surgical intervention. The patient elects to proceed with this endoscopic procedure. medical equipment was checked for proper function. Hand hygiene and appropriate measures for infection prevention was taken. After the risks, benefits and alternatives of the procedure were thoroughly explained, Informed consent was verified, confirmed and timeout was successfully executed by the treatment team. A digital exam revealed external hemorrhoids The Pentax [id number] endoscope was introduced through the anus and advanced to the splenic flexure. The instrument was then slowly withdrawn as the colon was fully examined. COLON FINDINGS: Severe diverticulosis in sigmoid,descending poor prep-old blood mixed with stool-scope colud not be advanced further agressive washing done-no active bleeidng noted. Retroflexed views revealed internal hemorrhoids and Retroflexed views revealed small internal hemorrhoids The scope was then completely withdrawn from the patient and the procedure terminated. ADVERSE EVENTS: There were no complications. IMPRESSIONS: 1. Severe diverticulosis in sigmoid,descending poor prep-old blood mixed with stool-scope colud not be advanced further agressive washing done-no active bleeidng noted 2. Retroflexed views revealed internal hemorrhoids 3. Retroflexed views revealed small internal hemorrhoids 4. Revealed external hemorrhoids RECOMMENDATIONS: Ice chips ct abdomen/pelvis transfuse 2 units of prbc monitor hb/hct if active bleeding consult IR for angiogram general surgery eval RECALL: Return 2 days Colonoscopy better prep Wendy Healy MD eSigned: Wendy Healy MD 10/12/2017 12:45 PM cc: PATIENT NAME: Kelley Garcia MR#: [id number]
[2017-10-12 12:49] LABS: HEMATOCRIT 24.5 % (35.0-46.0); HEMOGLOBIN 8.1 GM/DL (11.6-15.3)
[2017-10-12] MEDS: CARBIDOPA/LEVODOPA 25 MG/100 MG TAB PO SCH ×3 (13:00→21:04)
[2017-10-12] MEDS ORDERED: DIATRIZOATE MEGLUM/DIATRIZOATE SOD 9 ML CUP PO ONE (13:15)
[2017-10-12] MEDS ORDERED: DO NOT ADM ANY ANTICOAGULANT DRUGS PRN ×2 (13:15)
[2017-10-12 15:51] LABS: HEMATOCRIT 27.6 % (35.0-46.0); HEMOGLOBIN 9.4 GM/DL (11.6-15.3)
[2017-10-12] MEDS ORDERED: IOHEXOL 350 MG/ML 10 ML VIAL (for RAD DIAG) IVCONTRAST ONE (20:41)
--- NOTE | 2017-10-12 20:55 | RADRPT ---
EXAM DATE/TIME: 10/12/2017 20:34 [place] COMPARISON: No previous studies available for comparison. INDICATIONS : Blood in stool. IV CONTRAST: 95 cc Omnipaque 350 (iohexol) IV ORAL CONTRAST: No oral contrast ingested. RADIATION DOSE: 6.64 CTDIvol (mGy) MEDICAL HISTORY : Dementia. Parkinsons. Cardiovascular disease SURGICAL HISTORY : None. ENCOUNTER: Initial ACUITY: 1 day PAIN SCALE: 0/10 LOCATION: Abdomen. TECHNIQUE: Volumetric scanning of the abdomen and pelvis was performed. Using automated exposure control and ad justment of the mA and/or kV according to patient size, radiation dose was kept as low as reasonably achievable to obtain optimal diagnostic quality images. DICOM format image data is available electro nically for review and comparison. FINDINGS: LOWER LUNGS: The visualized lower lungs are clear. LIVER: Homogeneous density without lesion. There is no dilation of the biliary tree. No calcified gallston es. Hepatic low densities. SPLEEN: Normal size without lesion. PANCREAS: Within normal limits. KIDNEYS: Normal in size and shape. There is no mass, stone or hydronephrosis. Bilateral parapelvic renal cyst s. Nonobstructing calculus right kidney measures one centimeters. ADRENAL GLANDS: Within normal limits. VASCULAR: There is no aortic aneurysm. BOWEL/MESENTERY: Diverticulosis colon without diverticulitis. There is no free intraperitoneal air or fluid. ABDOMINAL WALL: Within normal limits. RETROPERITONEUM: There is no lymphadenopathy. BLADDER: No wall thickening or mass. REPRODUCTIVE: Calcified leiomyomas. INGUINAL: There is no lymphadenopathy or hernia. MUSCULOSKELETAL: Old rib fractures. Chronic fracture right tear pubic rami and superior pubic rami. Degenerative alston es lumbar spine. CONCLUSION: 1. Diverticulosis without diverticulitis. 2. Nonobstructing right renal calculus measures one centimeters. 3. Parapelvic bilateral renal cysts. 4. Subacute to chronic fractures of the right superior and inferior pubic rami. 5. Old bilateral rib fractures. Jeffrey Hand MD on October 12, 2017 at 20:49 Board Certified Radiologist. This report was verified electronically.
[2017-10-12 22:16] LABS: HEMATOCRIT 24.1 % (35.0-46.0); HEMOGLOBIN 8.2 GM/DL (11.6-15.3)
[2017-10-13] VITALS (9 sets, daily range): BP systolic 102–130; BP diastolic 52–67; PULSE 65–90; RESP 15–28; TEMP 97.2–99.2; O2SAT 97–99
[2017-10-13 06:42] LABS: BICARBONATE 28.5 MEQ/L (21.0-32.0); CALCIUM 7.6 MG/DL (8.5-10.1); CREATININE 0.64 MG/DL (0.50-1.00)
[2017-10-13 07:24] LABS: HEMATOCRIT 24.1 % (35.0-46.0); HEMOGLOBIN 8.3 GM/DL (11.6-15.3); MEAN CELL VOLUME 97.5 FL (80.0-100.0); MEAN CORPUSCULAR HEMOGLOBIN 33.5 PG (27.0-34.0); MEAN CORPUSCULAR HGB CONC 34.4 % (32.0-36.0); MEAN PLATELET VOLUME 7.6 FL (7.0-11.0); PLATELET COUNT 219 TH/MM3 (150-450); RED BLOOD COUNT 2.47 MIL/MM3 (4.00-5.30); RED CELL DISTRIBUTION WIDTH 14.5 % (11.6-17.2); WHITE BLOOD COUNT 6.6 TH/MM3 (4.0-11.0)
[2017-10-13] MEDS ORDERED: CALCIUM CARBONATE 500 MG CHEWABLE TAB CHEW ONE (08:15)
[2017-10-13] MEDS: CARBIDOPA/LEVODOPA 25 MG/100 MG TAB PO SCH ×4 (08:34→20:55)
[2017-10-13] MEDS: SODIUM CHLORIDE 0.9% FLUSH 10 ML FLUSH IV FLUSH SCH ×2 (08:34→20:55)
[2017-10-13] MEDS ORDERED: PNEUMOCOCCAL POLYVALENT INJ 25 MCG/0.5 ML SYR IM ONE (09:00)
[2017-10-13] MEDS ORDERED: INFLUENZA VIRUS VACCINE (QUADRIVALENT) 0.5 ML SYR IM ONE (09:00)
--- NOTE | 2017-10-13 09:22 | HHI.FPPN ---
Subjective Remarks Patient seen and examined this morning. No acute events overnight. Nurse reports no more episodes of bloody stools overnight. Patient states she still having diarrhea. Otherwise denies any other complaints. Colonoscopy yesterday , which showed some diverticulosis. Patient denies any dizziness, chest pain, shortness of breath, abdominal pain, leg pain. Objective Vitals Vital Signs Date Time Temp Pulse Resp B/P (MAP) Pulse Ox O2 Delivery O2 Flow Rate FiO2 10/13/17 06:00 66 10/13/17 04:00 97.2 74 17 119/56 (77) 98 10/13/17 04:00 68 10/13/17 02:00 70 10/13/17 00:00 77 10/13/17 00:00 97.6 90 28 117/66 (83) 97 10/12/17 22:00 89 10/12/17 20:00 87 10/12/17 20:00 Room Air 10/12/17 20:00 98.1 74 18 113/66 (82) 100 10/12/17 18:00 75 10/12/17 16:00 86 10/12/17 16:00 97.9 86 24 151/87 (108) 93 10/12/17 14:00 60 10/12/17 13:15 90 16 120/62 (81) 95 Room Air 10/12/17 13:15 98.2 90 14 120/71 95 10/12/17 13:05 93 16 136/78 (97) 95 Room Air 10/12/17 13:00 97.0 64 16 130/58 (82) 98 10/12/17 12:55 81 16 96/58 (71) 95 Room Air 10/12/17 12:45 98.4 88 16 89/59 (69) 95 Room Air 10/12/17 12:45 98.4 84 14 89/58 95 10/12/17 11:36 97.9 72 112/61 98 10/12/17 10:00 68 I/O 10/12/17 10/12/17 10/12/17 10/13/17 10/13/17 10/13/17 07:00 15:00 23:00 07:00 15:00 23:00 Intake Total 765 ml 2220 ml 806 ml Output Total 200 ml 300 ml 750 ml Balance -200 ml 765 ml 1920 ml 56 ml Intake Oral 980 ml 20 ml IV Total 1000 ml 786 ml Packed Cells 400 ml 240 ml Blood Product IV Normal Saline Flush 65 ml Other 300 ml Output Urine Total 200 ml 300 ml 750 ml # Voids 2 # Bowel Movements 4 0 Result Diagram: 10/13/17 0526 10/13/17 0500 Imaging Last Impressions GI Bleed Scan Nuclear Medicine 10/12/17 0000 Signed Impressions: Service Date/Time: Thursday, October 12, 2017 06:19 - CONCLUSION: Several episodes of active GI bleeding with site of origin midline abdominal pelvic junction, nonspecific with regard to small versus large bowel. Ramón Hui MD Abdomen/Pelvis CT 10/12/17 0000 Signed Impressions: Service Date/Time: Thursday, October 12, 2017 20:34 - CONCLUSION: 1. Diverticulosis without diverticulitis. 2. Nonobstructing right renal calculus measures one centimeters. 3. Parapelvic bilateral renal cysts. 4. Subacute to chronic fractures of the right superior and inferior pubic rami. 5. Old bilateral rib fractures. Jeffrey Hand MD Objective Remarks GENERAL: NAD, lying in bed SKIN: Warm and dry. CARDIOVASCULAR: Regular rate and rhythm. RESPIRATORY: No accessory muscle use. Clear to auscultation. Breath sounds equal bilaterally. GASTROINTESTINAL: Abdomen soft, non-tender, nondistended. MUSCULOSKELETAL: Extremities without clubbing, cyanosis, or edema. NEUROLOGICAL: Awake and alert. No obvious cranial nerve deficits. Normal speech. A/P Assessment and Plan 82-year-old female with past medical history significant for Parkinson's disease with dementia being admitted to observation after report from her [facility] passing large blood clots per rectum and noted to have bright red blood per rectum on evaluation in the ED. Discharge Planning Pending GI workup Problem List: (1) Bright red blood per rectum ICD Codes: K62.5 - Hemorrhage of anus and rectum Status: Acute Plan: Initial Hgb 10.0, noted to be at baseline of 10.0 from her prior Hgb from 07/2017 Noted to have bright red blood around the rectum per ED physician Bleeding scan: several episodes of active GI bleeding with site of origin midline abdominal pelvic junction, nonspecific with regard to small versus large bowel Abdominal xray: no acute disease Abdomen/pelvis CT: Diverticulosis, right renal calculus, renal cysts, chronic fractures. C diff negative. No enteric pathogens. Other stool studies pending H/H stable around 8 GI consulted-appreciate recs -Colonoscopy 10/12-showed diverticulosis NPO w/ PO meds Continue Protonix 40 mg IV q12h Monitor for active bleeding, notify IR for angiogram (2) Parkinson disease ICD Codes: G20 - Parkinson's disease Plan: Continue home Sinemet (3) Fluid, Electrolyte, Nutrition, and Prophylaxis Status: Acute Plan: Fluids: NS at maintenance rate Electrolytes: within normal limits Nutrition: NPO w/ meds DVT ppx: b/l SCDs, chemical anticoagulation contraindicated at this time GI ppx: Protonix Sánchez Mercer MD R2 October 13, 2017 09:22
[2017-10-13] MEDS: SODIUM CHLOR 0.9% 1000 ML INJ 1,000 ML IV SCH (10:33)
[2017-10-13] MEDS: PANTOPRAZOLE SODIUM 40 MG VIAL IV PUSH SCH (12:07)
[2017-10-13 16:11] LABS: HEMATOCRIT 23.9 % (35.0-46.0); HEMOGLOBIN 8.2 GM/DL (11.6-15.3)
--- NOTE | 2017-10-13 16:45 | HHI.GIFU ---
Subjective Remarks Pt is sitting in bed, pleasantly confused, no bleeding reported by nurse, hh stable (Jamar Willettzuhair FRAUSTO) Objective Vitals I&O Vital Signs Date Time Temp Pulse Resp B/P (MAP) Pulse Ox O2 Delivery O2 Flow Rate FiO2 10/13/17 16:00 65 10/13/17 16:00 98.8 65 15 102/52 (69) 98 10/13/17 12:00 98.6 74 15 120/63 (82) 99 10/13/17 12:00 74 10/13/17 08:00 68 10/13/17 08:00 99.0 68 17 118/56 (76) 98 10/13/17 07:00 96 Room Air 10/13/17 06:00 66 10/13/17 04:00 97.2 74 17 119/56 (77) 98 10/13/17 04:00 68 10/13/17 02:00 70 10/13/17 00:00 77 10/13/17 00:00 97.6 90 28 117/66 (83) 97 10/12/17 22:00 89 10/12/17 20:00 87 10/12/17 20:00 Room Air 10/12/17 20:00 98.1 74 18 113/66 (82) 100 10/12/17 18:00 75 I/O 10/12/17 10/12/17 10/12/17 10/13/17 10/13/17 10/13/17 07:00 15:00 23:00 07:00 15:00 23:00 Intake Total 765 ml 2220 ml 806 ml Output Total 200 ml 300 ml 750 ml Balance -200 ml 765 ml 1920 ml 56 ml Intake Oral 980 ml 20 ml IV Total 1000 ml 786 ml Packed Cells 400 ml 240 ml Blood Product IV Normal Saline Flush 65 ml Other 300 ml Output Urine Total 200 ml 300 ml 750 ml # Voids 2 # Bowel Movements 4 0 Laboratory Laboratory Tests Test 10/12/17 21:56 10/13/17 05:00 10/13/17 05:26 10/13/17 15:33 Hemoglobin 8.2 8.3 8.2 Hematocrit 24.1 24.1 23.9 Blood Urea Nitrogen 14 Creatinine 0.64 Random Glucose 81 Calcium Level 7.6 Sodium Level 145 Potassium Level 3.9 Chloride Level 109 Carbon Dioxide Level 28.5 Anion Gap 8 Estimat Glomerular Filtration Rate 89 White Blood Count 6.6 Red Blood Count 2.47 Mean Corpuscular Volume 97.5 Mean Corpuscular Hemoglobin 33.5 Mean Corpuscular Hemoglobin Concent 34.4 Red Cell Distribution Width 14.5 Platelet Count 219 Mean Platelet Volume 7.6 Date/Time Source Procedure Growth Status 10/12/17 11:55 Stool Stool Cryptosporidium Exam Pending Received 10/12/17 11:55 Stool Stool Giardia Antigen (PAUL) Pending Received Physical Exam HEENT: normocephalic; atraumatic; no jaundice. CHEST: Chest is clear to auscultation and percussion. CARDIAC: Regular rate and rhythm with no murmur gallop or rubs. ABDOMEN: Soft, nondistended, nontender; no hepatosplenomegaly; bowel sounds are present in all four quadrants. EXTREMITIES: No clubbing, cyanosis, or edema. SKIN: Normal; no rash; no jaundice. ASPNET DEVELOPER: alert and oriented . (Arik Willett) Assessment and Plan Plan Assessment: - BRBPR- sent from [place] for evaluation, has had multiple blood BMs since arrival. [place] bleeding scan revealed several episodes of active GI bleeding with site of origin midline abdominal pelvic junction, nonspecific with regard to small versus large bowel Hgb on admission 10, 4 hour repeat at 8.9 S/P colonoscopy on 10/12/17 1. Severe diverticulosis in sigmoid,descending poor prep-old blood mixed with stool-scope could not be advanced further aggressive washing done-no active bleeding noted 2. Retroflexed views revealed internal hemorrhoids 3. Retroflexed views revealed small internal hemorrhoids 4. Revealed external hemorrhoids CT of A/P diverticulosis, nonobstructing right renal calculous, renal cyst subacute to chronic fractures to the right superior and inferior pubic rami, old bilateral rib fractures Abd x-ray with no specific bowel gas pattern Stools negative for C-diff, (-) cx Plan: Colonoscopy in am Obtain consent clear liquids NPO mn Monitor hh Notify Gi for active bleed Further recommendations based on results of above Pt has been seen and examined by myself and Dr. Healy and this note is written on her behalf (Arik Willett) Physician Comments seen, examined agree with above (Wendy Healy MD) Arik Willett [facility] October 13, 2017 16:45 Wendy Healy MD October 13, 2017 19:27
[2017-10-13] MEDS: PEG (High)/E-LYTE SOLN 4000 ML BTL PO ONE ×2 (17:18→17:57)
[2017-10-14] VITALS (18 sets, daily range): BP systolic 118–141; BP diastolic 57–67; PULSE 63–89; RESP 16–18; TEMP 97.6–98.5; O2SAT 92–96
[2017-10-14] MEDS: PANTOPRAZOLE SODIUM 40 MG VIAL IV PUSH SCH ×3 (01:32→23:20)
[2017-10-14] MEDS ORDERED: LACTATED RINGER'S 1000 ML IV PRN ×2 (03:00→21:45)
[2017-10-14] MEDS ORDERED: CHLORHEXIDINE GLUCONATE 2 % 1 PACK (2 CLOTHS) TOPICAL PRN ×2 (03:00→21:45)
[2017-10-14] MEDS ORDERED: SODIUM CHLORID 0.9% 500 ML IV PRN ×2 (03:00→21:45)
[2017-10-14] MEDS ORDERED: METOPROLOL TARTRATE 25 MG TAB PO PRN ×2 (03:00→21:45)
[2017-10-14] MEDS ORDERED: POVIDONE IODINE 5% (ANTISEPSIS KIT) 4 APPLICATIONS EACH NARE PRN ×2 (03:00→21:45)
[2017-10-14] MEDS ORDERED: INSULIN HUMAN REGULAR 1,000 UNITS/10 ML VIAL SQ PRN ×2 (03:00→21:45)
[2017-10-14 04:42] LABS: AUTOMATED NEUTROPHIL # 6.1 TH/MM3 (1.8-7.7); BASOPHIL % 0.5 % (0.0-2.0); EOSINOPHIL # 0.2 TH/MM3 (0-0.4); HEMATOCRIT 22.3 % (35.0-46.0); HEMOGLOBIN 7.4 GM/DL (11.6-15.3); LYMPH % 12.8 % (9.0-44.0); MEAN CELL VOLUME 98.3 FL (80.0-100.0); MEAN CORPUSCULAR HEMOGLOBIN 32.7 PG (27.0-34.0); MEAN CORPUSCULAR HGB CONC 33.3 % (32.0-36.0); MEAN PLATELET VOLUME 7.1 FL (7.0-11.0); MONO % 8.6 % (0.0-8.0); MONOCYTE # 0.7 TH/MM3 (0-0.9); NEUT % 76.1 % (16.0-70.0); PLATELET COUNT 215 TH/MM3 (150-450); RED BLOOD COUNT 2.27 MIL/MM3 (4.00-5.30); RED CELL DISTRIBUTION WIDTH 14.2 % (11.6-17.2)
[2017-10-14 05:10] LABS: BICARBONATE 28.5 MEQ/L (21.0-32.0); CALCIUM 7.6 MG/DL (8.5-10.1); CREATININE 0.62 MG/DL (0.50-1.00)
[2017-10-14] MEDS: SODIUM CHLORIDE 0.9% FLUSH 10 ML FLUSH IV FLUSH SCH ×2 (09:00→19:49)
[2017-10-14] MEDS: CARBIDOPA/LEVODOPA 25 MG/100 MG TAB PO SCH ×4 (09:00→19:49)
[2017-10-14] MEDS: SODIUM CHLOR 0.9% 1000 ML INJ 1,000 ML IV SCH ×3 (09:18→23:20)
[2017-10-14] MEDS ORDERED: PEG (High)/E-LYTE SOLN 4000 ML BTL PO ONE (10:45)
--- NOTE | 2017-10-14 10:45 | PD.PROCEDR ---
GI Procedure PROCEDURE PERFORMED Incomplete colonoscopy to the sigmoid due to poor prep INDICATION FOR PROCEDURE Rectal bleeding PROCEDURE: The procedure, risks and benefits were discussed with Patient/POA and informed consent was obtained. Anesthesia sedated Patient with Diprivan. Patient was placed in the left lateral decubitus position. Colonoscopy: The Pentax videoscope was introduced through the rectum and advanced to sigmoid. Retroflexion was performed in the rectum. Colonic prep was poor with solid stools noted in the sigmoid and rectum FINDINGS: The patient had extensive diverticulosis. The procedure was technically difficult. There was no active bleeding nor was blood seen during this incomplete procedure ESTIMATED BLOOD LOSS: None SPECIMENS REMOVED: None COMPLICATIONS: None IMPRESSION: Incomplete colonoscopy Diverticulosis PLAN: Repeat colonoscopy tomorrow Continue with current supportive care Catarino Holguin MD October 14, 2017 10:45
[2017-10-14] MEDS ORDERED: PROPOFOL 200 MG/20 ML AMP IV ONE (12:00)
[2017-10-14] MEDS ORDERED: LIDOCAINE HCL 1% PF 5 ML SYRINGE OTHER ONE (12:00)
[2017-10-14] MEDS ORDERED: ePHEDrine/NS 25 MG/5 ML SYRINGE IV ONE (12:00)
[2017-10-14] MEDS ORDERED: PHENYLEPH/NS 1000 MCG/10 ML SYR IV ONE (12:00)
--- NOTE | 2017-10-14 12:09 | HHI.FPPN ---
Subjective Remarks Mrs. Garcia was afebrile with stable vital signs overnight. Patient reports mild dizziness. No chest pain or shortness of breath. No abdominal pain. Normal urination. Patient can feel trickling of blood from rectum which has continued. Objective Vitals Vital Signs Date Time Temp Pulse Resp B/P (MAP) Pulse Ox O2 Delivery O2 Flow Rate FiO2 10/14/17 10:43 98.3 72 14 126/65 (85) 99 10/14/17 08:00 93 Room Air 10/14/17 08:00 98.2 83 18 120/58 (78) 93 10/14/17 07:57 73 10/14/17 04:06 70 10/14/17 03:45 97.7 73 18 138/63 (88) 95 10/14/17 03:35 97.7 73 18 138/63 (88) 95 10/14/17 01:13 70 10/14/17 01:10 77 10/14/17 00:30 Room Air 10/13/17 23:30 97.3 71 18 130/60 (83) 97 10/13/17 20:00 99.2 81 20 120/67 (84) 97 10/13/17 20:00 81 10/13/17 19:00 97 Room Air 10/13/17 16:00 65 10/13/17 16:00 98.8 65 15 102/52 (69) 98 10/13/17 12:00 98.6 74 15 120/63 (82) 99 10/13/17 12:00 74 I/O 10/13/17 10/13/17 10/13/17 10/14/17 10/14/17 10/14/17 07:00 15:00 23:00 07:00 15:00 23:00 Intake Total 806 ml 600 ml 0 ml 400 ml Output Total 750 ml 1850 ml 1100 ml 1600 ml Balance 56 ml -1250 ml -1100 ml -1200 ml Intake Oral 20 ml 600 ml 0 ml IV Total 786 ml Other 400 ml Output Urine Total 750 ml 1850 ml 1100 ml Stool Total 1600 ml # Bowel Movements 0 0 0 Result Diagram: 10/14/17 0433 10/14/17 0433 Imaging Last Impressions GI Bleed Scan Nuclear Medicine 10/12/17 0000 Signed Impressions: Service Date/Time: Thursday, October 12, 2017 06:19 - CONCLUSION: Several episodes of active GI bleeding with site of origin midline abdominal pelvic junction, nonspecific with regard to small versus large bowel. Ramón Hui MD Abdomen/Pelvis CT 10/12/17 0000 Signed Impressions: Service Date/Time: Saturday, October 12, 2017 20:34 - CONCLUSION: 1. Diverticulosis without diverticulitis. 2. Nonobstructing right renal calculus measures one centimeters. 3. Parapelvic bilateral renal cysts. 4. Subacute to chronic fractures of the right superior and inferior pubic rami. 5. Old bilateral rib fractures. Jeffrey Hand MD Objective Remarks GENERAL: NAD, lying in bed SKIN: Warm and dry. CARDIOVASCULAR: Regular rate and rhythm. Normal peripheral perfusion RESPIRATORY: No accessory muscle use. Clear to auscultation. Breath sounds equal bilaterally. GASTROINTESTINAL: Abdomen soft, non-tender, nondistended. MUSCULOSKELETAL: Extremities without clubbing, cyanosis, or edema. NEUROLOGICAL: Awake and alert. No obvious cranial nerve deficits. Normal speech. A/P Assessment and Plan 82-year-old female with past medical history significant for Parkinson's disease with dementia being admitted to observation after report from her half-way passing large blood clots per rectum and noted to have bright red blood per rectum on evaluation in the ED. Discharge Planning Pending GI workup Problem List: (1) Bright red blood per rectum ICD Codes: K62.5 - Hemorrhage of anus and rectum Status: Acute Plan: Impression: Noted to have bright red blood around the rectum per ED physician. Initial Hgb 10.0, noted to be at baseline of 10.0 from her prior Hgb from 07/2017 Bleeding scan: several episodes of active GI bleeding with site of origin midline abdominal pelvic junction, nonspecific with regard to small versus large bowel Abdominal xray: no acute disease Abdomen/pelvis CT: Diverticulosis, right renal calculus, renal cysts, chronic fractures. C diff negative. No enteric pathogens. Other stool studies pending Hemoglobin- 10 (10/11) -> 8.2 (10/12) s/p 1 U pRBC -> 8.3 (10/13) -> 7.4 (10/14) GI consulted-appreciate recs -Colonoscopy 10/14- plan or repeat colonoscopy tomorrow -colonoscopy 10/12- diverticulosis in sigmoid colon; poor prep NPO w/ PO meds Continue Protonix 40 mg IV q12h Monitor for active bleeding, notify IR for angiogram (2) Parkinson disease ICD Codes: G20 - Parkinson's disease Plan: Continue home Sinemet (3) Fluid, Electrolyte, Nutrition, and Prophylaxis Status: Acute Plan: Fluids: NS at maintenance rate Electrolytes: within normal limits Nutrition: NPO w/ meds DVT ppx: b/l SCDs, chemical anticoagulation contraindicated at this time GI ppx: Protonix Omar Dejesus MD R3 October 14, 2017 12:09
[2017-10-14 12:49] LABS: HEMATOCRIT 22.7 % (35.0-46.0); HEMOGLOBIN 7.7 GM/DL (11.6-15.3); MEAN CELL VOLUME 98.8 FL (80.0-100.0); MEAN CORPUSCULAR HEMOGLOBIN 33.6 PG (27.0-34.0); MEAN PLATELET VOLUME 7.5 FL (7.0-11.0); PLATELET COUNT 217 TH/MM3 (150-450); RED CELL DISTRIBUTION WIDTH 14.3 % (11.6-17.2); WHITE BLOOD COUNT 8.2 TH/MM3 (4.0-11.0)
[2017-10-14] MEDS ORDERED: PEG (High)/E-LYTE SOLN 4000 ML BTL NG ONE (14:00)
[2017-10-14 19:25] LABS: HEMATOCRIT 25.9 % (35.0-46.0); HEMOGLOBIN 8.9 GM/DL (11.6-15.3)
[2017-10-15] VITALS (8 sets, daily range): BP systolic 112–163; BP diastolic 58–77; PULSE 62–80; RESP 17–18; TEMP 97.2–98.7; O2SAT 94–98
[2017-10-15 00:53] LABS: HEMATOCRIT 27.6 % (35.0-46.0); HEMOGLOBIN 9.5 GM/DL (11.6-15.3)
[2017-10-15 06:19] LABS: HEMOGLOBIN 9.8 GM/DL (11.6-15.3); MEAN CELL VOLUME 92.9 FL (80.0-100.0); MEAN CORPUSCULAR HEMOGLOBIN 32.6 PG (27.0-34.0); MEAN CORPUSCULAR HGB CONC 35.1 % (32.0-36.0); MEAN PLATELET VOLUME 7.4 FL (7.0-11.0); PLATELET COUNT 187 TH/MM3 (150-450); RED BLOOD COUNT 3.01 MIL/MM3 (4.00-5.30); RED CELL DISTRIBUTION WIDTH 16.7 % (11.6-17.2); WHITE BLOOD COUNT 9.1 TH/MM3 (4.0-11.0)
[2017-10-15 06:50] LABS: BICARBONATE 27.2 MEQ/L (21.0-32.0); CREATININE 0.65 MG/DL (0.50-1.00)
--- NOTE | 2017-10-15 08:17 | HHI.FPPN ---
Subjective Remarks Mrs. Garcia was afebrile with stable vital signs overnight. Per EMR, 9 stools and 9 voids; 1600ml output. Patient still reports trickling of rectal blood. No abdominal pain or vomiting. No chest pain, shortness of breath, or abnormal urination. (Omar Dejesus MD R3) Objective Vitals Vital Signs Date Time Temp Pulse Resp B/P (MAP) Pulse Ox O2 Delivery O2 Flow Rate FiO2 10/15/17 04:00 97.6 80 17 128/58 (81) 94 10/15/17 04:00 66 10/15/17 04:00 10/15/17 00:13 68 10/15/17 00:00 97.7 74 18 131/67 (88) 95 10/14/17 22:58 97.7 74 18 131/67 95 10/14/17 20:01 76 10/14/17 20:00 97.7 84 17 141/63 (89) 95 10/14/17 20:00 96 Room Air 10/14/17 19:58 97.7 84 17 141/63 95 10/14/17 19:43 98.5 71 16 120/59 96 10/14/17 18:57 74 10/14/17 16:11 65 16 118/58 95 10/14/17 15:53 98.4 89 16 119/57 (77) 92 10/14/17 15:47 97.6 70 18 126/60 96 10/14/17 15:30 98.4 89 16 119/57 92 10/14/17 12:00 98.2 63 16 123/61 (81) 95 10/14/17 10:43 98.3 72 14 126/65 (85) 99 I/O 10/14/17 10/14/17 10/14/17 10/15/17 10/15/17 10/15/17 07:00 15:00 23:00 07:00 15:00 23:00 Intake Total 0 ml 880 ml 1193 ml 4339 ml Output Total 1100 ml 1600 ml Balance -1100 ml -720 ml 1193 ml 4339 ml Intake Oral 0 ml 480 ml 3740 ml IV Total 599 ml Packed Cells 800 ml Blood Product IV Normal Saline Flush 393 ml Other 400 ml Output Urine Total 1100 ml Stool Total 1600 ml # Voids 4 5 # Bowel Movements 0 5 4 (Omar Dejesus MD R3) Result Diagram: 10/15/17 0557 10/15/17 0557 Imaging Last Impressions GI Bleed Scan Nuclear Medicine 10/12/17 0000 Signed Impressions: Service Date/Time: Thursday, October 12, 2017 06:19 - CONCLUSION: Several episodes of active GI bleeding with site of origin midline abdominal pelvic junction, nonspecific with regard to small versus large bowel. Ramón Hui MD Abdomen/Pelvis CT 10/12/17 0000 Signed Impressions: Service Date/Time: Thursday, October 12, 2017 20:34 - CONCLUSION: 1. Diverticulosis without diverticulitis. 2. Nonobstructing right renal calculus measures one centimeters. 3. Parapelvic bilateral renal cysts. 4. Subacute to chronic fractures of the right superior and inferior pubic rami. 5. Old bilateral rib fractures. Jeffrey Hand MD Objective Remarks GENERAL: NAD, lying in bed SKIN: Warm and dry. No visible lesions CARDIOVASCULAR: Regular rate and rhythm. Normal peripheral perfusion RESPIRATORY: No accessory muscle use. Clear to auscultation. Breath sounds equal bilaterally. GASTROINTESTINAL: Abdomen soft, non-tender to palpation, nondistended. Normal bowel sounds MUSCULOSKELETAL: No lower extremity edema. Grossly normal motor function and range of motion NEUROLOGICAL: Awake and alert. No obvious cranial nerve deficits. Grossly normal peripheral motor/sensory function. Normal speech. (Omar Dejesus MD R3) A/P Assessment and Plan 82-year-old female with past medical history significant for Parkinson's disease with dementia being admitted to observation after report from her [facility] passing large blood clots per rectum and noted to have bright red blood per rectum on evaluation in the ED. Discharge Planning Pending GI workup (Omar Dejesus MD R3) Attending Attestation Patient seen and examined. Case reviewed and discussed with the resident team. Agree with plan of care as discussed with me and documented in the resident note. consulted PT and OT as she is reported to be a fall risk and having Parkinson's alone can increase risk of falls. she may need rehab and closer supervision for awhile when she leaves the hospital. pt is not a good historian at this time (Yadira Arora MD) Problem List: (1) Bright red blood per rectum ICD Codes: K62.5 - Hemorrhage of anus and rectum Status: Acute Plan: Impression: Noted to have bright red blood around the rectum per ED physician. Initial Hgb 10.0, noted to be at baseline of 10.0 from her prior Hgb from 07/2017 Bleeding scan: several episodes of active GI bleeding with site of origin midline abdominal pelvic junction, nonspecific with regard to small versus large bowel Abdominal XR: no acute disease Abdomen/pelvis CT: Diverticulosis, right renal calculus, renal cysts, chronic fractures. C diff negative. No enteric pathogens. Other stool studies pending Hemoglobin- 10 (10/11) -> 8.2 (10/12) s/p 1 U pRBC -> 8.3 (10/13) -> 7.4 (10/14) - > s/p 2 U pRBC -> 9.8 (10/15) Colonoscopy 10/14- plan or repeat colonoscopy tomorrow Colonoscopy 10/12- diverticulosis in sigmoid colon; poor prep GI consulted-appreciate recs -NPO w/ PO meds while awaiting repeat colonoscopy -Continue Protonix 40 mg IV q12h -Monitor for active bleeding, notify IR for angiogram if needed -Continue to monitor CBC (2) Parkinson disease ICD Codes: G20 - Parkinson's disease Plan: Continue home Sinemet (3) Fluid, Electrolyte, Nutrition, and Prophylaxis Status: Acute Plan: Fluids: NS at maintenance rate Electrolytes: within normal limits Nutrition: NPO w/ meds DVT ppx: b/l SCDs, chemical anticoagulation contraindicated at this time GI ppx: Protonix (Omar Dejesus MD R3) Omar Dejesus MD R3 October 15, 2017 08:17 Yadira Arora MD October 15, 2017 12:20
[2017-10-15] MEDS: SODIUM CHLORIDE 0.9% FLUSH 10 ML FLUSH IV FLUSH SCH ×2 (08:32→20:18)
[2017-10-15] MEDS: CARBIDOPA/LEVODOPA 25 MG/100 MG TAB PO SCH ×4 (08:32→20:17)
[2017-10-15] MEDS: SODIUM CHLOR 0.9% 1000 ML INJ 1,000 ML IV SCH ×2 (08:32→23:37)
[2017-10-15] MEDS ORDERED: PROPOFOL 200 MG/20 ML AMP IV ONE (12:00)
[2017-10-15] MEDS ORDERED: LIDOCAINE HCL 1% PF 5 ML SYRINGE OTHER ONE (12:00)
[2017-10-15] MEDS ORDERED: SUCCINYLCHOLINE CHLORIDE 100 MG/5 ML SYRINGE IV PUSH ONE (12:00)
[2017-10-15] MEDS: PANTOPRAZOLE SODIUM 40 MG VIAL IV PUSH SCH ×2 (12:12→23:36)
--- NOTE | 2017-10-15 15:24 | OTSOAPIP ---
TIME SESSION COMPLETED: TREATMENT TIME: 0 MINS. CHART REVIEWED. PATIENT WAS NOT AVAILABLE DUE TO BEING OFF THE UNIT FOR A PROCEDURE. PLAN: WILL EVALUATE PATIENT NEXT TREATMENT DAY. MV Therapist: REMY CHEW/Magdy Signature on file
--- NOTE | 2017-10-15 15:57 | PD.PROCEDR ---
GI Procedure PROCEDURE PERFORMED Colonoscopy with snare polypectomy and biopsy INDICATION FOR PROCEDURE GI bleed PROCEDURE: The procedure, risks and benefits were discussed with Patient/POA and informed consent was obtained. Anesthesia sedated Patient with Diprivan. Patient was placed in the left lateral decubitus position. Colonoscopy: The Pentax videoscope was introduced through the rectum and advanced to cecum where the ileocecal valve and appendiceal orifice were identified. Retroflexion was performed in the rectum. Colonic prep was fair FINDINGS: Colonic withdrawal time greater than 6 minutes. As the scope was slowly withdrawn colonic mucosa was carefully inspected the patient was noted to have a medium sized polyp in the ascending colon this was excised using cold snare technique and retrieved for further evaluation the patient was noted to have significant diverticulosis of the sigmoid region with what appears to be some swelling or edema of the sigmoid mucosa this was biopsied and also most likely because this was a difficult colonoscopy there must be underlying sigmoid stricture also noted was some evidence of bloody tinged secretions in the sigmoid region but nowhere else in the colon the rest of the colonic examination was unremarkable so is retroflexion and rectal examination ESTIMATED BLOOD LOSS: Minimal SPECIMENS REMOVED: Colon biopsy COMPLICATIONS: None IMPRESSION: Colon polyp Severe diverticulosis Probable sigmoid stricture Sigmoid edema Probable bleeding from diverticulosis with no active bleeding at this point PLAN: Await biopsies Recommend barium enema to further evaluate the sigmoid Continue with current supportive care Monitor labs Catarino Holguin MD October 15, 2017 15:57
--- NOTE | 2017-10-15 16:47 | EKG ---
Date Performed: 10/14/2017 Time Performed: 06:00:36 PTAGE: 82 years EKG: Sinus rhythm Possible anterior infarct - age undetermined Lateral T wave changes are nonspecific Abnormal ECG PREVIOUS TRACING : 08/01/2017 22.09 Since the previous tracing, no significant change noted DOCTOR: Shiv Her Interpretating Date/Time 10/15/2017 16:46:23
[2017-10-15] MEDS: MAGNESIUM CITRATE SOLN 300 ML BTL PO SCH ×2 (18:05→21:50)
[2017-10-15 18:14] LABS: HEMATOCRIT 30.9 % (35.0-46.0); HEMOGLOBIN 10.6 GM/DL (11.6-15.3)
[2017-10-15] MEDS: BISACODYL EC 5 MG TABEC PO SCH (23:34)
[2017-10-16] VITALS (9 sets, daily range): BP systolic 94–153; BP diastolic 52–70; PULSE 59–98; RESP 16–18; TEMP 97.4–98.8; O2SAT 95–97
[2017-10-16] MEDS: BISACODYL EC 5 MG TABEC PO SCH (02:04)
[2017-10-16 07:33] LABS: HEMATOCRIT 29.5 % (35.0-46.0); HEMOGLOBIN 10.4 GM/DL (11.6-15.3); MEAN CELL VOLUME 94.8 FL (80.0-100.0); MEAN CORPUSCULAR HEMOGLOBIN 33.4 PG (27.0-34.0); MEAN CORPUSCULAR HGB CONC 35.2 % (32.0-36.0); MEAN PLATELET VOLUME 7.9 FL (7.0-11.0); PLATELET COUNT 206 TH/MM3 (150-450); RED BLOOD COUNT 3.11 MIL/MM3 (4.00-5.30); RED CELL DISTRIBUTION WIDTH 16.2 % (11.6-17.2); WHITE BLOOD COUNT 7.5 TH/MM3 (4.0-11.0)
--- NOTE | 2017-10-16 09:00 | HHI.FPPN ---
Subjective Remarks Mrs. Garcia was afebrile with stable vital signs overnight; intermittent hypertension to MAP 105. Per I&O, 6 voids and 5 BM overnight. Patient thinks she has slight rectal bleeding but it is improved. No chest pain , shortness of breath, or abnormal urination. No abdominal pain. (Omar Dejesus MD R3) Objective Vitals Vital Signs Date Time Temp Pulse Resp B/P (MAP) Pulse Ox O2 Delivery O2 Flow Rate FiO2 10/16/17 04:01 59 10/16/17 04:00 98.1 76 18 153/65 (94) 95 10/16/17 00:58 62 10/16/17 00:01 97.4 93 18 131/66 (87) 96 10/15/17 20:26 Room Air 10/15/17 20:00 98.7 69 18 112/58 (76) 94 10/15/17 20:00 75 10/15/17 17:40 98 21 10/15/17 16:25 97.2 62 18 163/77 (105) 94 10/15/17 15:50 98.6 55 16 143/71 (95) 98 10/15/17 12:00 98.0 71 18 141/66 (91) 96 I/O 10/15/17 10/15/17 10/15/17 10/16/17 10/16/17 10/16/17 07:00 15:00 23:00 07:00 15:00 23:00 Intake Total 4339 ml 800 ml 240 ml Balance 4339 ml 800 ml 240 ml Intake Oral 3740 ml 240 ml IV Total 599 ml Other 800 ml # Voids 5 6 # Bowel Movements 4 5 (Omar Dejesus MD R3) Result Diagram: 10/16/17 0550 10/15/17 0557 Imaging Last Impressions GI Bleed Scan Nuclear Medicine 10/12/17 0000 Signed Impressions: Service Date/Time: Thursday, October 12, 2017 06:19 - CONCLUSION: Several episodes of active GI bleeding with site of origin midline abdominal pelvic junction, nonspecific with regard to small versus large bowel. Ramón Hui MD Abdomen/Pelvis CT 10/12/17 0000 Signed Impressions: Service Date/Time: Thursday, October 12, 2017 20:34 - CONCLUSION: 1. Diverticulosis without diverticulitis. 2. Nonobstructing right renal calculus measures one centimeters. 3. Parapelvic bilateral renal cysts. 4. Subacute to chronic fractures of the right superior and inferior pubic rami. 5. Old bilateral rib fractures. Jeffrey Hadn MD Objective Remarks GENERAL: NAD, lying in bed SKIN: Warm and dry. No visible lesions CARDIOVASCULAR: Regular rate and rhythm. Normal peripheral perfusion RESPIRATORY: Clear to auscultation bilaterally; normal rate GASTROINTESTINAL: Abdomen soft, non-tender to palpation, nondistended. Normal bowel sounds MUSCULOSKELETAL: No lower extremity edema. Grossly normal motor function and range of motion NEUROLOGICAL: Awake and alert. No obvious cranial nerve deficits. Grossly normal peripheral motor/sensory function. Normal speech. (Omar Dejesus MD R3) A/P Assessment and Plan 82-year-old female with past medical history significant for Parkinson's disease with dementia being admitted to observation after report from her halfway passing large blood clots per rectum and noted to have bright red blood per rectum on evaluation in the ED. Discharge Planning Pending GI workup (Omar Dejesus MD R3) Attending Attestation Patient seen and examined. Case reviewed and discussed with the resident team. Agree with plan of care as discussed with me and documented in the resident note. She has some baseline dementia but has the capacity to make decisions. She wishes to go back to [facility]. She may have further bleeding but that is unpredictable. She has not had any bleeding here for days (Yadira Arora MD) Problem List: (1) Bright red blood per rectum ICD Codes: K62.5 - Hemorrhage of anus and rectum Status: Acute Plan: Impression: Noted to have bright red blood around the rectum per ED physician. Initial Hgb 10.0, noted to be at baseline of 10.0 from her prior Hgb from 07/2017 Bleeding scan: several episodes of active GI bleeding with site of origin midline abdominal pelvic junction, nonspecific with regard to small versus large bowel Abdominal XR: no acute disease Abdomen/pelvis CT: Diverticulosis, right renal calculus, renal cysts, chronic fractures. C diff negative. No enteric pathogens. Other stool studies pending Hemoglobin- 10 (10/11) -> 8.2 (10/12) s/p 1 U pRBC -> 8.3 (10/13) -> 7.4 (10/14) - > s/p 2 U pRBC -> 9.8 (10/15) -> 10.4 (10/16) Colonoscopy 10/12- diverticulosis in sigmoid colon; poor prep Colonoscopy 10/14- plan or repeat colonoscopy tomorrow Colonoscopy 10/15- diverticulosis, colon polyp, sigmoid stricture, sigmoid colon edema Colon biopsy pending GI consulted-appreciate recs -NPO w/ PO meds while awaiting repeat colonoscopy -Continue Protonix 40 mg IV q12h -Monitor for active bleeding, notify IR for angiogram if needed -Await biopsies -Barium enema to continue to evaluate sigmoid -Continue to monitor CBC (2) Acute blood loss anemia ICD Codes: D62 - Acute posthemorrhagic anemia Status: Acute Plan: Impression: Hgb 10 on admission-> 7.4 10/14-> 9.6 10/17 in association with gastrointestinal bleeding. Suspected secondary to colonic source in sigmoid area (diverticulosis, stricture present) s/p 3 uPRBC 10/12-10/14 -Continue to monitor CBC -Will start ferrous sulfate supplementation (3) Parkinson disease ICD Codes: G20 - Parkinson's disease Plan: Continue home Sinemet (4) Fluid, Electrolyte, Nutrition, and Prophylaxis Status: Acute Plan: Fluids: NS at maintenance rate Electrolytes: within normal limits Nutrition: NPO w/ meds DVT ppx: b/l SCDs, chemical anticoagulation contraindicated at this time GI ppx: Protonix (Omar Dejesus MD R3) Omar Dejesus MD R3 October 16, 2017 09:00 Yadira Arora MD October 18, 2017 09:51
[2017-10-16] MEDS: CARBIDOPA/LEVODOPA 25 MG/100 MG TAB PO SCH ×4 (09:07→20:19)
[2017-10-16] MEDS: SODIUM CHLORIDE 0.9% FLUSH 10 ML FLUSH IV FLUSH SCH ×2 (09:07→20:20)
--- NOTE | 2017-10-16 12:52 | RADRPT ---
EXAM DATE: 10/16/2017 12:41 PM EDT AGE/SEX: 82 years / Female INDICATIONS: Sigmoid stricture and GI bleed CLINICAL DATA: This is the patient's initial encounter. Patient reports that signs and symptoms have been present for 1 day and indicates a pain score of Nonresponsive. MEDICAL/SURGICAL HISTORY: . Parkinson's, dementia None. COMPARISON: No prior [facility] exams available for comparison. FLUORO TIME: 3.2 minutes. IMAGE COUNT: 16 FINDINGS: A balloon tip catheter was inserted into the rectum, and barium was instilled under fluoroscopic cont rol. This was an extremely limited study. Patient has severe diverticulosis of the sigmoid colon. The re appears to be some narrowing of the mid sigmoid colon and we were unable to get any contrast beyon d this point. Patient was unable to hold the enema tip and balloon. Multiple attempts were made howev er patient could not hold onto the balloon an enema tip. Therefore, after multiple attempts we termin ated the study. CONCLUSION: 1. Severe diverticulosis of the sigmoid colon. 2. There is some narrowing of the sigmoid colon which contrast would not pass beyond in a retrograde fashion. 3. Multiple attempts were made but patient could not hold onto the balloon an enema tip. Electronically signed by: Grant Wooten MD 10/16/2017 12:51 PM EDT
--- NOTE | 2017-10-16 14:10 | HHI.GIFU ---
Subjective Remarks Pt in bedside chair Just returned from barium enema States she needs to have a BM soon Denies abdominal pain, nausea, vomiting Would like to have so food (Toña Valdez) Objective Vitals I&O Vital Signs Date Time Temp Pulse Resp B/P (MAP) Pulse Ox O2 Delivery O2 Flow Rate FiO2 10/16/17 12:00 98.8 69 17 127/60 (82) 96 10/16/17 09:05 96 21 10/16/17 08:00 97.8 70 16 132/63 (86) 96 10/16/17 04:01 59 10/16/17 04:00 98.1 76 18 153/65 (94) 95 10/16/17 00:58 62 10/16/17 00:01 97.4 93 18 131/66 (87) 96 10/15/17 20:26 Room Air 10/15/17 20:00 98.7 69 18 112/58 (76) 94 10/15/17 20:00 75 10/15/17 17:40 98 21 10/15/17 16:25 97.2 62 18 163/77 (105) 94 10/15/17 15:50 98.6 55 16 143/71 (95) 98 I/O 10/15/17 10/15/17 10/15/17 10/16/17 10/16/17 10/16/17 07:00 15:00 23:00 07:00 15:00 23:00 Intake Total 4339 ml 800 ml 240 ml 300 ml Balance 4339 ml 800 ml 240 ml 300 ml Intake Oral 3740 ml 240 ml IV Total 599 ml 300 ml Other 800 ml # Voids 5 6 # Bowel Movements 4 5 Laboratory Laboratory Tests Test 10/15/17 17:45 10/16/17 05:50 Hemoglobin 10.6 10.4 Hematocrit 30.9 29.5 White Blood Count 7.5 Red Blood Count 3.11 Mean Corpuscular Volume 94.8 Mean Corpuscular Hemoglobin 33.4 Mean Corpuscular Hemoglobin Concent 35.2 Red Cell Distribution Width 16.2 Platelet Count 206 Mean Platelet Volume 7.9 Date/Time Source Procedure Growth Status 10/12/17 11:55 Stool Stool Cryptosporidium Exam - Final NEGATIVE - NO CRYPTOSPORIDIUM ANTIGEN... Complete 10/12/17 11:55 Stool Stool Giardia Antigen ([facility]) - Final NEGATIVE - NO GIARDIA ANTIGEN DETECTE... Complete Imaging Last Impressions Barium Enema 10/16/17 0000 Signed Impressions: CONCLUSION: GI Bleed Scan Nuclear Medicine 10/12/17 0000 Signed Impressions: Service Date/Time: Thursday, October 12, 2017 06:19 - CONCLUSION: Several episodes of active GI bleeding with site of origin midline abdominal pelvic junction, nonspecific with regard to small versus large bowel. Ramón Hui MD Abdomen/Pelvis CT 10/12/17 0000 Signed Impressions: Service Date/Time: Thursday, October 12, 2017 20:34 - CONCLUSION: 1. Diverticulosis without diverticulitis. 2. Nonobstructing right renal calculus measures one centimeters. 3. Parapelvic bilateral renal cysts. 4. Subacute to chronic fractures of the right superior and inferior pubic rami. 5. Old bilateral rib fractures. Jeffrey Hand MD Physical Exam HEENT: Normocephalic; atraumatic CHEST: Even/unlabored CARDIAC: RRR ABDOMEN: Soft, nondistended, nontender; bowel sounds active EXTREMITIES: No clubbing, cyanosis, or edema. SKIN: Normal; no rash; no jaundice. DIVISION COMMANDER: Alert and oriented . (Toña Valdez) Assessment and Plan Plan Assessment: - [facility]- sent from CT for evaluation, has had multiple blood BMs since arrival. NM bleeding scan revealed several episodes of active GI bleeding with site of origin midline abdominal pelvic junction, nonspecific with regard to small versus large bowel Hgb on admission 10, 4 hour repeat at 8.9 CT abdomen and pelvis W IV contrast (10/12) --> Diverticulosis without diverticulitis. Nonobstructing right renal calculus, parapelvic bilateral renal cysts, subacute to chronic features of the right superior and inferior pubic rami. Old bilateral rib fractures. Colonoscopy (10/12/17) Severe diverticulosis in sigmoid,descending poor prep-old blood mixed with stool-scope could not be advanced further aggressive washing done-no active bleeding noted. Internal and external hemorrhoids Colonoscopy (10/14) Incomplete, poor pre Colonoscopy (10/15) Polyp in the ascending colon, significant diverticulosis of the sigmoid region with what appears to be swelling or edema in the sigmoid mucosa. Underlying sigmoid stricture noted and some evidence of blood tinged secretions in the sigmoid region, but nowhere else in the colon (10/16) Pt with no GI complains at this time. Denies abdominal pain. States she feels she may need to have a BM soon due to recent barium enema. Would like to eat Barium enema (10/16) --> Severe diverticulosis of the sigmoid colon. There is some narrowing of the sigmoid colon which contrast would not pass beyond in a retrograde fashion. Multiple attempts were made but patient could not hold onto the balloon enema tip. Plan: Clear liquid diet Colon biopsy pending If pt becomes symptomatic, GS consult should be placed Monitor H/H Notify GI if any active bleeding Further recommendations based on biopsy findings and clinical course Pt has been seen and examined by myself and Dr. Holguin and this note is written on his behalf (Toña Valdez) Physician Comments Patient seen and examined Agree with above Continue with current supportive care Monitor labs Colorectal surgical evaluation if patient becomes symptomatic whether it is bleeding or worsening stricturing of the sigmoid Not much to add from a GI standpoint we will sign off (Catarino Holguin MD) Toña Valdez October 16, 2017 14:10 Catarino Holguin MD October 16, 2017 20:38
[2017-10-16] MEDS: PANTOPRAZOLE SODIUM 40 MG VIAL IV PUSH SCH (14:12)
[2017-10-16] MEDS: SODIUM CHLOR 0.9% 1000 ML INJ 1,000 ML IV SCH (18:21)
[2017-10-17] VITALS (7 sets, daily range): BP systolic 108–131; BP diastolic 56–61; PULSE 65–80; RESP 16–18; TEMP 97.4–98.3; O2SAT 95–97
[2017-10-17] MEDS: PANTOPRAZOLE SODIUM 40 MG VIAL IV PUSH SCH (00:07)
[2017-10-17 06:32] LABS: AUTOMATED NEUTROPHIL # 5.1 TH/MM3 (1.8-7.7); BASOPHIL % 0.3 % (0.0-2.0); EOSINOPHIL # 0.2 TH/MM3 (0-0.4); EOSINOPHIL % 3.2 % (0.0-4.0); HEMATOCRIT 27.7 % (35.0-46.0); HEMOGLOBIN 9.6 GM/DL (11.6-15.3); LYMPH % 11.6 % (9.0-44.0); LYMPHOCYTE # 0.8 TH/MM3 (1.0-4.8); MEAN CELL VOLUME 94.1 FL (80.0-100.0); MEAN CORPUSCULAR HEMOGLOBIN 32.8 PG (27.0-34.0); MEAN CORPUSCULAR HGB CONC 34.9 % (32.0-36.0); MEAN PLATELET VOLUME 7.3 FL (7.0-11.0); MONO % 9.5 % (0.0-8.0); MONOCYTE # 0.6 TH/MM3 (0-0.9); NEUT % 75.4 % (16.0-70.0); PLATELET COUNT 206 TH/MM3 (150-450); RED BLOOD COUNT 2.94 MIL/MM3 (4.00-5.30); RED CELL DISTRIBUTION WIDTH 15.9 % (11.6-17.2); WHITE BLOOD COUNT 6.7 TH/MM3 (4.0-11.0)
[2017-10-17 06:59] LABS: BICARBONATE 26.6 MEQ/L (21.0-32.0); CALCIUM 7.6 MG/DL (8.5-10.1); CREATININE 0.66 MG/DL (0.50-1.00)
[2017-10-17] MEDS ORDERED: POTASSIUM CHLORIDE 25 MEQ EFFERVESCENT TAB PO ONE (07:45)
[2017-10-17] MEDS: SODIUM CHLORIDE 0.9% FLUSH 10 ML FLUSH IV FLUSH SCH (08:48)
[2017-10-17] MEDS: CARBIDOPA/LEVODOPA 25 MG/100 MG TAB PO SCH ×3 (08:48→17:38)
[2017-10-17] MEDS: SODIUM CHLOR 0.9% 1000 ML INJ 1,000 ML IV SCH (08:55)
--- NOTE | 2017-10-17 10:49 | HHI.FPPN ---
Subjective Remarks Mrs. Garcia was afebrile with stable vital signs overnight. Per EMR, patient with 8 voids and 6 bowel movements overnight. Per discussion with nursing staff, patient did not have any bloody bowel movements overnight. Patient does not report abdominal pain. She states that she is breathing well and with normal urination. She states that she would like to go home today if possible. She also states that she would prefer not to have surgery if her bleeding happens to be from a colon malignancy. (Omar Dejesus MD R3) Objective Vitals Vital Signs Date Time Temp Pulse Resp B/P (MAP) Pulse Ox O2 Delivery O2 Flow Rate FiO2 10/17/17 08:00 97.4 65 16 125/59 (81) 96 10/17/17 04:00 98.0 73 18 108/56 (73) 96 10/17/17 00:01 98.0 80 17 131/58 (82) 95 10/17/17 00:01 75 10/16/17 20:20 Room Air 10/16/17 20:00 98.2 77 18 94/52 (66) 96 10/16/17 20:00 71 10/16/17 16:00 97.9 71 18 98/53 (68) 97 10/16/17 12:00 98.8 69 17 127/60 (82) 96 I/O 10/16/17 10/16/17 10/16/17 10/17/17 10/17/17 10/17/17 07:00 15:00 23:00 07:00 15:00 23:00 Intake Total 240 ml 300 ml 670 ml 240 ml Balance 240 ml 300 ml 670 ml 240 ml Intake Oral 240 ml 360 ml 240 ml IV Total 300 ml 310 ml # Voids 6 5 3 # Bowel Movements 5 5 1 (Omar Dejesus MD R3) Result Diagram: 10/17/17 0557 10/17/17 0557 Imaging Last Impressions Barium Enema 10/16/17 0000 Signed Impressions: CONCLUSION: 1. Severe diverticulosis of the sigmoid colon. 2. There is some narrowing of the sigmoid colon which contrast would not pass beyond in a retrograde fashion. 3. Multiple attempts were made but patient could not hold onto the balloon an enema tip. GI Bleed Scan Nuclear Medicine 10/12/17 0000 Signed Impressions: Service Date/Time: Thursday, October 12, 2017 06:19 - CONCLUSION: Several episodes of active GI bleeding with site of origin midline abdominal pelvic junction, nonspecific with regard to small versus large bowel. Ramón Hui MD Abdomen/Pelvis CT 10/12/17 0000 Signed Impressions: Service Date/Time: Thursday, October 12, 2017 20:34 - CONCLUSION: 1. Diverticulosis without diverticulitis. 2. Nonobstructing right renal calculus measures one centimeters. 3. Parapelvic bilateral renal cysts. 4. Subacute to chronic fractures of the right superior and inferior pubic rami. 5. Old bilateral rib fractures. Jeffrey Hand MD Objective Remarks GENERAL: NAD, lying in bed SKIN: Warm and dry. No visible lesions CARDIOVASCULAR: Regular rate and rhythm. Normal peripheral perfusion RESPIRATORY: Clear to auscultation bilaterally; normal rate GASTROINTESTINAL: Abdomen soft, non-tender to palpation, nondistended. Normal bowel sounds MUSCULOSKELETAL: No lower extremity edema. Grossly normal motor function and range of motion NEUROLOGICAL: Awake and alert; although sometimes seems demented she also seems generally aware and able to make decisions. No obvious cranial nerve deficits. Grossly normal peripheral motor/sensory function. Normal speech. (Omar Dejesus MD R3) A/P Assessment and Plan 82-year-old female with past medical history significant for Parkinson's disease with dementia being admitted to observation after report from her residential passing large blood clots per rectum and noted to have bright red blood per rectum on evaluation in the ED. Discharge Planning Pending GI workup (Omar Dejesus MD R3) Attending Attestation Patient seen and examined. Case reviewed and discussed with the resident team. Agree with plan of care as discussed with me and documented in the resident note. she requests going back to the SNF at [facility] (Yadira Arora MD) Problem List: (1) Bright red blood per rectum ICD Codes: K62.5 - Hemorrhage of anus and rectum Status: Acute Plan: 10/17- per discussion with nursing staff, no bloody bowel movements yesterday or today Impression: Noted to have bright red blood around the rectum per ED physician. Initial Hgb 10.0, noted to be at baseline of 10.0 from her prior Hgb from 2017 Bleeding scan: several episodes of active GI bleeding with site of origin midline abdominal pelvic junction, nonspecific with regard to small versus large bowel Abdominal XR: no acute disease Abdomen/pelvis CT: Diverticulosis, right renal calculus, renal cysts, chronic fractures. C diff negative. No enteric pathogens. Other stool studies pending Hemoglobin- 10 (10/11) -> 8.2 (10/12) s/p 1 U pRBC -> 8.3 (10/13) -> 7.4 (10/14) - > s/p 2 U pRBC -> 9.8 (10/15) -> 10.4 (10/16) Colonoscopy 10/12- diverticulosis in sigmoid colon; poor prep Colonoscopy 10/14- plan or repeat colonoscopy tomorrow Colonoscopy 10/15- diverticulosis, colon polyp, sigmoid stricture, sigmoid colon edema Barium enema 10/16- Severe diverticulosis of sigmoid colon. Some narrowing of sigmoid which contrast would not pass beyond in a retrograde fashion. Colon biopsy pending GI consulted-appreciate recs -Signed off -Monitor for active bleeding, notify IR for angiogram if needed -Await biopsies -Plan for surgical evaluation if repeat bleeding or other complications -Will increase diet -Continue Protonix 40mg BID -Continue to monitor CBC -Will plan to discharge to [facility] and follow-up CBC as an outpatient (2) Acute blood loss anemia ICD Codes: D62 - Acute posthemorrhagic anemia Status: Acute Plan: Impression: Hgb 10 on admission-> 7.4 10/14-> 9.6 10/17 in association with gastrointestinal bleeding. Suspected secondary to colonic source in sigmoid area (diverticulosis, stricture present) s/p 3 uPRBC 10/12-10/14 -Continue to monitor CBC -Will start ferrous sulfate supplementation (3) Parkinson disease ICD Codes: G20 - Parkinson's disease Plan: Continue home Sinemet (4) Fluid, Electrolyte, Nutrition, and Prophylaxis Status: Acute Plan: Fluids: NS at maintenance rate Electrolytes: within normal limits Nutrition: NPO w/ meds DVT ppx: b/l SCDs, chemical anticoagulation contraindicated at this time GI ppx: Protonix (Omar Dejesus MD R3) Omar Dejesus MD R3 October 17, 2017 10:49 Yadira Arora MD October 18, 2017 09:53
--- NOTE | 2017-10-17 11:14 | HHI.DCPOC ---
Discharge Care Plan Diagnosis: (1) Bright red blood per rectum (2) Acute blood loss anemia (3) Parkinson disease Goals to Promote Your Health * To prevent worsening of your condition and complications * To maintain your health at the optimal level Directions to Meet Your Goals Take your medications as prescribed Follow your dietary instruction Follow activity as directed Keep your appointments as scheduled Take your immunizations and boosters as scheduled If your symptoms worsen call your PCP, if no PCP go to Urgent Care Center or Emergency Room Smoking is Dangerous to Your Health. Avoid second hand smoke Call the 24-hour hour crisis hotline for domestic abuse at Omar Dejesus MD R3 October 17, 2017 11:14
[2017-10-17] MEDS ORDERED: PANT40TA3 PO (11:26)
[2017-10-17] MEDS ORDERED: FERR325T20 PO (11:26)
[2017-10-17 16:42] LABS: BICARBONATE 29.1 MEQ/L (21.0-32.0); CALCIUM 7.7 MG/DL (8.5-10.1); CREATININE 0.89 MG/DL (0.50-1.00)
[2017-10-17] MEDS ORDERED: FERROUS SULFATE 325 MG (65 MG ELEMENTAL IRON) TAB PO SCH (21:00)
[2017-10-17] MEDS ORDERED: PANTOPRAZOLE SOD 40 MG DELAYED RELEASE TAB PO SCH (21:00)
== END 2017-10-17 17:53 | DRG 378 ==
LOC: NEPC 22:36 → NEDA 10-12 01:11 → NEPHCDU 10-12 02:47 → OBSVTOIN 10-12 04:21 → N03A 10-12 04:50 → N06B 10-14 00:27
PROVIDERS: ADMIT Family Medicine; ATTEND Family Medicine
PROC: 0DJD8ZZ Inspection of Lower Intestinal Tract, Via Natural or Artificial Opening Endoscopic (ICD-10-PCS; 2017-10-12)
PROC: 30233N1 Transfusion of Nonautologous Red Blood Cells into Peripheral Vein, Percutaneous Approach (ICD-10-PCS; 2017-10-12)
PROC: 0DJD8ZZ Inspection of Lower Intestinal Tract, Via Natural or Artificial Opening Endoscopic (ICD-10-PCS; 2017-10-14)
PROC: 0DBN8ZX Excision of Sigmoid Colon, Via Natural or Artificial Opening Endoscopic, Diagnostic (ICD-10-PCS; 2017-10-15)
PROC: 0DBK8ZZ Excision of Ascending Colon, Via Natural or Artificial Opening Endoscopic (ICD-10-PCS; principal; 2017-10-15 14:37)
DX: K57.31 Diverticulosis of large intestine without perforation or abscess with bleeding (principal); D62 Acute posthemorrhagic anemia; G20 Parkinson's disease; F02.80 Dementia in other diseases classified elsewhere, unspecified severity, without behavioral disturbance, psychotic disturbance, mood disturbance, and anxiety; K62.5 Hemorrhage of anus and rectum; Z66 Do not resuscitate; D12.2 Benign neoplasm of ascending colon; K64.4 Residual hemorrhoidal skin tags; K64.8 Other hemorrhoids; Z79.82 Long term (current) use of aspirin; H91.90 Unspecified hearing loss, unspecified ear
CPT/HCPCS: 36430; 74019; 74177; 74270; 78278; 80048; 80053; 85014; 85018; 85025; 85027; 85610; 85730; 86850; 86900; 86901; 86920; 87328; 87329; 87493; 87506; 87641; 88305; 93005; A9560; C9113; J0330; J1630; J2370; J7030; P9016; Q9963; Q9967

== ENCOUNTER 2018-03-25 11:15 | Inpatient (IN) ==
--- NOTE | 2018-03-25 11:40 | ED ---
HPI General Chief Complaint: Fall Stated Complaint: Fall Time Seen by Provider: 03/25/18 11:15 Source: patient and EMS Mode of arrival: EMS Limitations: altered mental status History of Present Illness HPI Narrative: Is an 82-year-old woman who presents to the emergency department complaining of right hip pain. She reports that she fell out of her wheelchair. Patient is a history of Parkinson's disease, and some dementia. Report from EMS is that it was a unwitnessed fall, staff found her and she reported that she had fallen out of the wheelchair. She denies any head pain, neck pain, or other injuries. She has pain only when they move her right leg. She otherwise reports she is been feeling well. History is a little bit limited due to dementia. Related Data Home Medications Medication Instructions Recorded Confirmed acetaminophen [Tylenol] 650 mg PO Q4H PRN 03/25/18 03/25/18 bisacodyl [Dulcolax (bisacodyl)] [address] DAILY PRN 03/25/18 03/25/18 calcium carbonate [Tums] 200 mg PO DAILY PRN 03/25/18 03/25/18 carbidopa-levodopa [Sinemet] 1 tab PO QID 03/25/18 03/25/18 cholecalciferol (vitamin D3) 2,000 unit PO DAILY 03/25/18 03/25/18 [Vitamin D3] docusate sodium [Colace] 200 mg PO HS 03/25/18 03/25/18 ferrous sulfate 325 mg PO BID 03/25/18 03/25/18 magnesium hydroxide [Milk of 30 ml PO DAILY PRN 03/25/18 03/25/18 Magnesia] melatonin 10 mg PO HS 03/25/18 03/25/18 pantoprazole 40 mg PO DAILY 03/25/18 03/25/18 sodium chloride 1 gm PO DAILY 03/25/18 03/25/18 Allergies Allergy/AdvReac Type Severity Reaction Status Date / Time penicillin G Allergy Severe Anaphylaxis Verified 03/25/18 11:31 Review of Systems ROS Unobtainable ROS Unobtainable: unobtainable due to mental status PMFSH Medical History Medical History Cardiac syncope (Acute) Constipation (Acute) Dementia (Acute) Fall (Acute) GI bleed (Acute) Parkinsons (Acute) Walking difficulty due to multiple sites (Acute) Social History Social History Substance History: No History of Abuse Smoking Status: Never smoker How Often Do You Have a Drink Containing Alcohol: Never Recent Out of Country Travel within the Last 8 Weeks: No Immunization History Tetanus Immunization: Unsure Exam Narrative Exam Narrative: GENERAL: Well-appearing 82-year-old woman, no acute distress. SKIN: Focused skin assessment warm/dry. HEAD: Atraumatic. Normocephalic. There is no areas of tenderness. No lumps or bumps. No bleeding or abrasions. EYES: Pupils equal and round. No scleral icterus. No injection or drainage. ENT: No nasal bleeding or discharge. Mucous membranes pink and moist. NECK: No midline tenderness. Moves neck freely. CARDIOVASCULAR: Regular rate and rhythm. No murmur appreciated. RESPIRATORY: No accessory muscle use. Clear to auscultation. Breath sounds equal bilaterally. GASTROINTESTINAL: Abdomen soft, non-tender, nondistended. Hepatic and splenic margins not palpable. MUSCULOSKELETAL: No obvious deformities. Upper extremities exams are normal. Lower extremity exams on the left is normal. Right sided extremity exam reveals normal gross appearance, there is no deformity. She keeps both legs slightly bent with a pillow underneath her knees for comfort. She complains of some mild to moderate pain with ranging the hip, but is able to tolerate it. There is no tenderness to palpation. Is no visible bruising or deformity. The knee exam and ankle exam on that side are normal NEUROLOGICAL: Awake and alert. Prominent resting tremor. Pleasantly confused. No obvious cranial nerve deficits. Motor grossly within normal limits. Speech is low in volume. Course Initial Documented Vital Signs Temperature 97.8 F 03/25/18 11:24 Pulse Rate 72 03/25/18 11:24 Respiratory Rate 20 03/25/18 11:24 Blood Pressure 188/84 H 03/25/18 11:24 Pulse Oximetry 96 03/25/18 11:24 Last Documented Vital Signs Temperature 97.8 F 03/25/18 11:24 Pulse Rate 72 03/25/18 11:24 Respiratory Rate 20 03/25/18 11:24 Blood Pressure 188/84 H 03/25/18 11:24 Pulse Oximetry 96 03/25/18 11:24 Medical Decision Making MDM Narrative Medical decision making narrative: INITIAL: 82-year-old woman, Parkinson's, fall from wheelchair right hip pain. Do not see any evidence of head injury or neck injury. Will check x-rays, reassess. Medical Screen Exam Complete: Yes Emergency Medical Condition: Yes Imaging Data Radiologist's impression: Hip X-Ray 03/25/18 11:32 CONCLUSION: Mildly displaced intertrochanteric fracture with avulsion of the lesser trochanter. Right hip fracture. Discharge Plan Discharge Disposition Patient Disposition: 30 Still Patient Physicians Team ED Provider: Jake Muir Primary Care Provider: UNKNOWN, Rxs /Orders / Referrals /Forms Prescriptions: No Action acetaminophen [Tylenol] 325 mg Tablet 650 mg PO Q4H PRN (Reason: Mild pain/Temp elevation) RF: 0 sodium chloride 1 gram Tablet 1 gm PO DAILY RF: 0 magnesium hydroxide [Milk of Magnesia] 400 mg/5 mL Suspension 30 ml PO DAILY PRN (Reason: Constipation) RF: 0 bisacodyl [Dulcolax (bisacodyl)] 10 mg Suppository [address] DAILY PRN (Reason: Constipation) RF: 0 pantoprazole 40 mg Tablet,Delayed Release (Dr/Ec) 40 mg PO DAILY RF: 0 ferrous sulfate 325 mg (65 mg iron) Tablet 325 mg PO BID RF: 0 calcium carbonate [Tums] 200 mg calcium (500 mg) Tablet,Chewable 200 mg PO DAILY PRN (Reason: Heartburn) RF: 0 docusate sodium [Colace] 100 mg Capsule 200 mg PO HS RF: 0 carbidopa-levodopa [Sinemet] 25-100 mg Tablet 1 tab PO QID RF: 0 cholecalciferol (vitamin D3) [Vitamin D3] 2,000 unit Tablet 2,000 unit PO DAILY RF: 0 melatonin 10 mg Capsule 10 mg PO HS RF: 0 Status ED Status: With Doctor
--- NOTE | 2018-03-25 12:17 | XR ---
EXAM DATE: 03/25/2018 12:09 PM EDT AGE/SEX: 82 years / Female INDICATIONS: Fell today, right hip pain CLINICAL DATA: This is the patient's initial encounter. Patient reports that signs and symptoms have been present for 1 day and indicates a pain score of Nonresponsive. MEDICAL/SURGICAL HISTORY: Dementia. Parkinson's disease. Non-responsive. COMPARISON: No prior exams available for comparison. FINDINGS: Single view the pelvis and 2 additional views of the right hip demonstrates mildly displaced intertro chanteric fracture. There is avulsion of the inferior trochanter. CONCLUSION: Mildly displaced intertrochanteric fracture with avulsion of the lesser trochanter. Electronically signed by: Jeffrey Hand MD 03/25/2018 12:15 PM EDT
--- NOTE | 2018-03-25 12:38 | P.HPFP ---
History of Present Illness Primary Care Physician: UNKNOWN <Mich Yadav - 03/25/18 20:20> UNKNOWN <Fernando Trottern Bermeo T - 03/25/18 12:38> History of Present Illness: 82-year-old female with a history of Parkinson's disease presents to the ER from [facility] for mechanical fall. Patient states that she was working out at the gym at [facility] when she fell. However, [facility], reports that patient was ambulating without her walker and fell due to gait imbalance. Patient denies hitting her head. Patient reports falling onto her right hip and was found on the ground immediately after falling. Endorses headaches since arriving at hospital as well as urinary frequency and urgency with foul-smelling urine Denies dizziness , chest pain, lightheadedness, vision changes, fevers, night sweats, chills, weakness, abdominal pain, and SOB. Per EMR, patient was hospitalized in 2017 for pelvic fracture due to near syncope fall. PHx: Parkinson's Dx Surgeries: None Allergies: Penicillin with unknown reaction FHx: Father at 70 and Mother at unknown age. Heart disease in father. Brother is healthy. Social: [place] all her life at a hospital. Never no children. Never smoker. Social drinker, maybe a glass a week. Denies illicit drug use. Code: DNR <Fernando Trottern Bermeo T - 03/25/18 18:10> - Diagnosis (1) Closed displaced intertrochanteric fracture of right femur (2) UTI (urinary tract infection) (3) Parkinson disease (4) Nutrition, metabolism, and development symptoms <LeifMich Curran - 03/25/18 20:20> (1) Closed displaced intertrochanteric fracture of right femur (2) UTI (urinary tract infection) (3) Parkinson disease (4) Nutrition, metabolism, and development symptoms <SergoScarlet Bermeo T - 03/25/18 18:01> Inpatient Certification: I certify that the inpatient services were ordered in accordance with Medicare regulations governing the order. This includes certification that hospital inpatient services are reasonable and necessary and in the case of services not specified as inpatient-only under 42 CFR 419.22(n), that they are appropriately provided as inpatient services in accordance to with the 2-midnight benchmark under 43 CFR 412.3(e) <Mich Yadav - 03/25/18 20:20> Review of Systems Constitutional: Denies fever(s), Denies night sweats, Denies weight loss <Fernando Trottern Bermeo - 03/25/18 17:54> Eyes: Denies change in vision <Scarlet Trotter 03/25/18 17:54> Ears, Nose, Mouth, and Throat: Reports headache(s), Denies difficulty swallowing <Fernando Trottern Bermeo 03/25/18 17:54> Cardiovascular: Denies chest pain <Fernando Trottern Bermeo 03/25/18 17:54> Respiratory: Denies cough, Denies shortness of breath, Denies wheezing <Sergo Scarlet Elvie Stokes 03/25/18 17:54> Gastrointestinal: Denies abdominal pain <SergocSarlet Bermeo 03/25/18 17:54> Genitourinary: Reports urinary urgency, Denies painful urination <SergoScarlet Bermeo 03/25/18 17:54> Musculoskeletal: Reports joint pain <Scarlet Trotter 03/25/18 17:54> Skin/Breast: Denies rash <Fernando Trottern Bermeo 03/25/18 17:54> Neurologic: Reports frequent falls <Fernando Trottern Bermeo 03/25/18 17:54> PMFSH - History History Provided By: Patient <Scarlet Trotter 03/25/18 12:38> - Medical History Medical History: Medical History (Last Reviewed 03/25/18 @ 11:36 by Jake Muir MD) Cardiac syncope Constipation Dementia Fall GI bleed Parkinsons Walking difficulty due to multiple sites <Mich Yadav - 03/25/18 20:20> Medical History (Last Reviewed 03/25/18 @ 11:36 by Jake Muir MD) Cardiac syncope Constipation Dementia Fall GI bleed Parkinsons Walking difficulty due to multiple sites <Fernando Trotterbrianna Bermeo 03/25/18 12:38> - Surgical History Surgical History: Surgical History (Last Updated 03/25/18 @ 17:51 by Scarlet Trotter MD, R2) No history of previous surgery <Mich Yadav - 03/25/18 20:20> Surgical History (Last Updated 03/25/18 @ 17:51 by Scarlet Trotter MD, R2) No history of previous surgery <Scarlet Trotter - 03/25/18 17:54> - Family History Family History: Family History (Last Updated 03/25/18 @ 17:54 by Scarlet Trotetr MD, R2) Father Heart disease <Mich Yadav - 03/25/18 20:20> Family History (Last Updated 03/25/18 @ 17:54 by Scarlet Trotter MD, R2) Father Heart disease <Scarlet Trotter - 03/25/18 17:54> - Social History I have reviewed the patient's Social History: Yes <Scarlet Trotter - 17:54> - Tobacco History Smoking Status: Never smoker <Scarlet Trotter - 03/25/18 12:38> - Alcohol History How Often Do You Have a Drink Containing Alcohol: Never <Scarlet Trotter - 12:38> - Substance Use History Substance History: No History of Abuse <Scarlet Trotter - 03/25/18 12:38> - Travel History Recent Travel Out of the Country Within the Last 8 Weeks: No <Scarlet Trotter - 03/25/18 12:38> - Immunization History Tetanus Immunization: Unsure <Scarlet Trotter - 03/25/18 12:38> Medications and Allergies Allergies Allergy/AdvReac Type Severity Reaction Status Date / Time penicillin G Allergy Severe Anaphylaxis Verified 03/25/18 11:31 <Mich Yadav - 03/25/18 20:20> Home Medications Medication Instructions Recorded Confirmed Type acetaminophen [Tylenol] 650 mg PO Q4H PRN 03/25/18 03/25/18 History bisacodyl [Dulcolax (bisacodyl)] 10 mg NM DAILY PRN 03/25/18 03/25/18 History calcium carbonate [Tums] 200 mg PO DAILY PRN 03/25/18 03/25/18 History carbidopa-levodopa [Sinemet] 1 tab PO QID 03/25/18 03/25/18 History cholecalciferol (vitamin D3) 2,000 unit PO DAILY 03/25/18 03/25/18 History [Vitamin D3] docusate sodium [Colace] 200 mg PO HS 03/25/18 03/25/18 History ferrous sulfate 325 mg PO BID 03/25/18 03/25/18 History magnesium hydroxide [Milk of 30 ml PO DAILY PRN 03/25/18 03/25/18 History Magnesia] melatonin 10 mg PO HS 03/25/18 03/25/18 History pantoprazole 40 mg PO DAILY 03/25/18 03/25/18 History sodium chloride 1 gm PO DAILY 03/25/18 03/25/18 History <Mich Yadav L - 03/25/18 20:20> Active Medications: Active Medications Acetaminophen (Tylenol) 650 mg PO Q4H PRN PRN Reason: Mild pain=< 5/Temp elevation Hydrocodone Bitart/Acetaminophen ([place] 5/325) 1 tab PO Q4H PRN PRN Reason: Pain 6-10 Al Hydroxide/Mg Hydroxide (Milk Of Magnesia Liq) 30 ml PO DAILY PRN PRN Reason: MILD Constipation Bisacodyl (Dulcolax Supp) 10 mg RECTAL DAILY PRN PRN Reason: SEVERE Constipation Calcium Carbonate (Tums Chew) 500 mg PO DAILY PRN PRN Reason: Heartburn Carbidopa/Levodopa (Sinemet 25/100 Mg) 1 tab PO QID [facility] Last Admin: 03/25/18 20:14 Dose: Not Given Clonidine HCl (Catapres) 0.1 mg PO Q6H PRN PRN Reason: SEE LABEL COMMENTS Docusate Sodium (Colace) 200 mg PO HS [facility] Enoxaparin Sodium (Lovenox Inj) 40 mg SQ DAILY [facility] Ferrous Sulfate (Ferosul) 325 mg PO BID [facility] Ceftriaxone Sodium 1,000 mg/ (Sodium Chloride) 100 mls @ 200 mls/hr IV.SIG Q24H [facility] Last Infusion: 03/25/18 17:52 Dose: Infused Sodium Chloride (Ns Inj) 1,000 mls @ 90 mls/hr IV.CONT .Q11H7M [facility] Last Admin: 03/25/18 17:15 Dose: 90 mls/hr Cefazolin Sodium 1,000 mg/ (Sodium Chloride) 100 mls @ 200 mls/hr IV.SIG Q8H [facility] Stop: 03/26/18 18:29 Miscellaneous Information (Misc Nursing Information) 1 each OTHER UNSCH PRN PRN Reason: SEE LABEL COMMENTS Stop: 03/26/18 19:33 Morphine Sulfate (Morphine Inj) 2 mg IV.PUSH Q3H PRN PRN Reason: BREAKTHROUGH PAIN Naloxone HCl (Narcan Inj) 0.4 mg IV.PUSH UNSCH PRN PRN Reason: SEE LABEL COMMENTS Pantoprazole Sodium (Protonix) 40 mg PO DAILY SANDI Sodium Chloride (Sodium Chloride) 1 gm PO DAILY SANDI Sodium Chloride (Ns Flush) 2 ml IV.FLUSH PRN PRN PRN Reason: FLUSH AFTER USING IV ACCESS Sodium Chloride (Ns Flush) 2 ml IV.FLUSH BID SANDI <Mich Yadav - 03/25/18 20:20> Active Medications Sodium Chloride (Ns Flush) 2 ml IV.FLUSH UNSCH PRN PRN Reason: FLUSH AFTER USING IV ACCESS <Scarlet Trotter - 03/25/18 12:38> Exam Vital signs: Vital Signs 03/25/18 11:24 03/25/18 12:48 03/25/18 17:58 Temperature 97.8 F Pulse Rate 72 75 88 Respiratory Rate 20 20 20 Blood Pressure 188/84 H 187/89 H 174/65 H Pulse Oximetry 96 03/25/18 19:31 Temperature 98.1 F Pulse Rate 60 Respiratory Rate 14 Blood Pressure 146/84 H Pulse Oximetry 100 Intake & Output 03/25/18 03/25/18 03/26/18 06:59 18:59 06:59 Intake Total 100 / 100 300 / 300 Output Total Balance 100 / 100 270 / 270 Weight 53.977 kg Intake: IV 100 / 100 Rocephin Inj 1,000 MG In NS Inj 100 / 100 100 ML @ 200 mls/hr IV.SIG Q24H SANDI Rx#:[id number] Anesthesia Amount 300 / 300 Output: Estimated Blood Loss Other: # Urine Diapers 2 <Mich Yadav - 03/25/18 20:20> Vital Signs 03/25/18 11:24 Temperature 97.8 F Pulse Rate 72 Respiratory Rate 20 Blood Pressure 188/84 H Pulse Oximetry 96 Intake & Output 03/24/18 03/25/18 03/25/18 18:59 06:59 18:59 Weight 53.977 kg <Scarlet Trotter - 03/25/18 12:38> Narrative: General: Thin, elderly female in no acute distress HEENT: Normocephalic, atraumatic, PERRLA, EOMI, throat clear, no lymphadenopathy Cardio: Regular rate and rhythm, no murmurs rubs or gallops Pulmonary: Clear to auscultation bilaterally no wheezes or crackles Abdomen: Soft, nontender nondistended, positive bowel sounds, no rebound or guarding Extremities: No ecchymosis seen on the right hip, nontender to palpation, leg pain with movement, able to wiggle toes, good capillary refills, 2+ pulses Neuro: Alert and oriented x3 <Scarlet Trotter - 03/25/18 17:59> Results - Labs Result diagrams: 03/25/18 12:40 03/25/18 12:40 <Mich Yadav L - 03/25/18 20:20> Abnormal lab results 03/25/18 03/25/18 03/25/18 Range/Units 12:40 12:40 12:40 RBC 3.43 L (4.00-5.30) mil/mm3 Hct 34.5 L (35.0-46.0) % MCV 100.6 H (80.0-100.0) fL MCH 34.1 H (27.0-34.0) pg Neut % (Auto) 76.4 H (16.0-70.0) % [place] % (Auto) 8.2 H (0.0-8.0) % Lymph # (Auto) 0.7 L (1.0-4.8) th/mm3 APTT 22.6 L (24.3-30.1) sec BUN 20 H (7-18) mg/dL Estimated GFR 64 L (>89) mL/min Calcium 8.3 L (8.5-10.1) mg/dL AST 13 L (15-37) U/L ALT 9 L (10-53) U/L Albumin 3.1 L (3.4-5.0) g/dL Urine Clarity (Clear) Urine Protein (Neg-Trace) mg/dL Urine Occult Blood (Negative) Urine Nitrate (Negative) Ur Leukocyte Esterase (Negative) Urine WBC (0-5) /hpf Urine WBC Clumps (None) Urine Bacteria (None) /hpf Urine Mucus (Occasional) /lpf 03/25/18 Range/Units 12:55 RBC (4.00-5.30) mil/mm3 Hct (35.0-46.0) % MCV (80.0-100.0) fL MCH (27.0-34.0) pg Neut % (Auto) (16.0-70.0) % [place]rie % (Auto) (0.0-8.0) % Lymph # (Auto) (1.0-4.8) th/mm3 APTT (24.3-30.1) sec BUN (7-18) mg/dL Estimated GFR (>89) mL/min Calcium (8.5-10.1) mg/dL AST (15-37) U/L ALT (10-53) U/L Albumin (3.4-5.0) g/dL Urine Clarity Cloudy H (Clear) Urine Protein 30 H (Neg-Trace) mg/dL Urine Occult Blood Large H (Negative) Urine Nitrate Positive H (Negative) Ur Leukocyte Esterase Moderate H (Negative) Urine WBC 65 H (0-5) /hpf Urine WBC Clumps Occasional H (None) Urine Bacteria Many H (None) /hpf Urine Mucus Few H (Occasional) /lpf Short CBC 03/25/18 Range/Units 12:40 WBC 5.7 (4.0-11.0) th/mm3 Hgb 11.7 (11.6-15.3) gm/dL Hct 34.5 L (35.0-46.0) % Plt Count 184 (150-450) th/mm3 BMP 03/25/18 12:40 Sodium 142 Potassium 3.9 Chloride 105 Carbon Dioxide 30.6 BUN 20 H Creatinine 0.85 Calcium 8.3 L Liver Function 03/25/18 Range/Units 12:40 Total Bilirubin 0.8 (0.2-1.0) mg/dL AST 13 L (15-37) U/L ALT 9 L (10-53) U/L Alkaline Phosphatase 65 (45-117) U/L Albumin 3.1 L (3.4-5.0) g/dL Urine 03/25/18 Range/Units 12:55 Urine Color Yellow (Yellw/Straw) Urine Clarity Cloudy H (Clear) Urine pH 6.0 (5.0-8.5) Ur Specific [place] 1.016 (1.002-1.035) Urine Protein 30 H (Neg-Trace) mg/dL Urine Glucose (UA) Negative (Negative) mg/dL <Mich Yadav - 03/25/18 20:20> - Imaging Impressions Hip X-Ray 03/25/18 00:00 CONCLUSION: Fixation proximal right femur. Hip X-Ray 03/25/18 11:32 CONCLUSION: Mildly displaced intertrochanteric fracture with avulsion of the lesser trochanter. Chest X-Ray 03/25/18 12:22 CONCLUSION: No acute cardiopulmonary disease <Mich Yadav - 03/25/18 20:20> Impressions Hip X-Ray 03/25/18 11:32 CONCLUSION: Mildly displaced intertrochanteric fracture with avulsion of the lesser trochanter. <Scarlet Trotter T - 03/25/18 12:38> Caprini VTE Risk Assessment Caprini VTE Risk Assessment: Moderate/High Risk (score >= 2) <Scarlet Trotter T - 03/25/18 17:59> Caprini Risk Assessment Model: Point Value = 1 Point Value = 2 Point Value = 3 Point Value = 5 Age 41-60 Minor surgery BMI > 25 kg/m2 Swollen legs Varicose veins or History of unexplained or recurrent spontaneous Oral contraceptives or hormone replacement Sepsis (< 1 month) Serious lung disease, including pneumonia (< 1 month) Abnormal pulmonary function Acute myocardial infarction Congestive heart failure (< 1 month) History of inflammatory bowel disease Medical patient at bed rest Age 61-74 Arthroscopic surgery Major open surgery (> 45 min) Laparoscopic surgery (> 45 min) Malignancy Confined to bed (> 72 hours) Immobilizing plaster cast Central venous access Age >= 75 History of VTE Family history of VTE Factor V Leiden Prothrombin [id number] Lupus anticoagulant Anticardiolipin antibodies Elevated serum homocysteine Heparin-induced thrombocytopenia Other congenital or acquired thrombophilia Stroke (< 1 month) Elective arthroplasty Hip, pelvis, or leg fracture Acute spinal cord injury (< 1 month) <Mich Yadav 03/25/18 20:20> Point Value = 1 Point Value = 2 Point Value = 3 Point Value = 5 Age 41-60 Minor surgery BMI > 25 kg/m2 Swollen legs Varicose veins or History of unexplained or recurrent spontaneous Oral contraceptives or hormone replacement Sepsis (< 1 month) Serious lung disease, including pneumonia (< 1 month) Abnormal pulmonary function Acute myocardial infarction Congestive heart failure (< 1 month) History of inflammatory bowel disease Medical patient at bed rest Age 61-74 Arthroscopic surgery Major open surgery (> 45 min) Laparoscopic surgery (> 45 min) Malignancy Confined to bed (> 72 hours) Immobilizing plaster cast Central venous access Age >= 75 History of VTE Family history of VTE Factor V Leiden Prothrombin [id number] Lupus anticoagulant Anticardiolipin antibodies Elevated serum homocysteine Heparin-induced thrombocytopenia Other congenital or acquired thrombophilia Stroke (< 1 month) Elective arthroplasty Hip, pelvis, or leg fracture Acute spinal cord injury (< 1 month) <Scarlet Trotter T - 03/25/18 12:38> Prophylaxis Regimen: Total Risk Factor Score Risk Level Prophylaxis Regimen 0-1 Low Early ambulation 2 Moderate Order ONE of the following: *Sequential Compression Device (SCD) *Heparin 5000 units SQ BID 3-4 Higher Order ONE of the following medications: *Heparin 5000 units SQ TID *Enoxaparin/Lovenox 40 mg SQ daily (WT < 150 kg, CrCl > 30 mL/min) *Enoxaparin/Lovenox 30 mg SQ daily (WT < 150 kg, CrCl > 10-29 mL/min) *Enoxaparin/Lovenox 30 mg SQ BID (WT < 150 kg, CrCl > 30 mL/min) AND/OR *Sequential Compression Device (SCD) 5 or more Highest Order ONE of the following medications: *Heparin 5000 units SQ TID (Preferred with Epidurals) *Enoxaparin/Lovenox 40 mg SQ daily (WT < 150 kg, CrCl > 30 mL/min) *Enoxaparin/Lovenox 30 mg SQ daily (WT < 150 kg, CrCl > 10-29 mL/min) *Enoxaparin/Lovenox 30 mg SQ BID (WT < 150 kg, CrCl > 30 mL/min) AND *Sequential Compression Device (SCD) <Mich Yadav - 03/25/18 20:20> Total Risk Factor Score Risk Level Prophylaxis Regimen 0-1 Low Early ambulation 2 Moderate Order ONE of the following: *Sequential Compression Device (SCD) *Heparin 5000 units SQ BID 3-4 Higher Order ONE of the following medications: *Heparin 5000 units SQ TID *Enoxaparin/Lovenox 40 mg SQ daily (WT < 150 kg, CrCl > 30 mL/min) *Enoxaparin/Lovenox 30 mg SQ daily (WT < 150 kg, CrCl > 10-29 mL/min) *Enoxaparin/Lovenox 30 mg SQ BID (WT < 150 kg, CrCl > 30 mL/min) AND/OR *Sequential Compression Device (SCD) 5 or more Highest Order ONE of the following medications: *Heparin 5000 units SQ TID (Preferred with Epidurals) *Enoxaparin/Lovenox 40 mg SQ daily (WT < 150 kg, CrCl > 30 mL/min) *Enoxaparin/Lovenox 30 mg SQ daily (WT < 150 kg, CrCl > 10-29 mL/min) *Enoxaparin/Lovenox 30 mg SQ BID (WT < 150 kg, CrCl > 30 mL/min) AND *Sequential Compression Device (SCD) <Scarlet Trotter T - 03/25/18 12:38> Assessment and Plan - Assessment (1) Closed displaced intertrochanteric fracture of right femur Code(s): S72.141A - Displaced intertrochanteric fracture of right femur, initial encounter for closed fracture Status: Acute (2) UTI (urinary tract infection) Code(s): N39.0 - Urinary tract infection, site not specified Status: Acute (3) Parkinson disease Code(s): G20 - Parkinson's disease Status: Acute (4) Nutrition, metabolism, and development symptoms Code(s): R63.8 - Other symptoms and signs concerning food and fluid intake Status: Acute <Mich Yadav - 03/25/18 20:20> (1) Closed displaced intertrochanteric fracture of right femur Code(s): S72.141A - Displaced intertrochanteric fracture of right femur, initial encounter for closed fracture Status: Acute Plan: 82-year-old female with a history of Parkinson's disease presents to the ER from [facility] for mechanical fall. Per patient's: Nurse, patient was ambulating without walker and fell due to gait imbalance. Right hip x-ray demonstrates mildly displaced inter-enteric fracture with avulsion of the lesser trochanter Orthopedic consulted for surgery N.p.o. NS 90mls/hr Pain control with [place] and morphine (2) UTI (urinary tract infection) Code(s): N39.0 - Urinary tract infection, site not specified Status: Acute Plan: UA on admission positive for positive nitrites and leukocyte esterases and bacteria Urine culture pending Start Rocephin 1 g daily NS 90mls/hr (3) Parkinson disease Code(s): G20 - Parkinson's disease Status: Acute Plan: Continue home levodopa and carbidopa (4) Nutrition, metabolism, and development symptoms Code(s): R63.8 - Other symptoms and signs concerning food and fluid intake Status: Acute Plan: Fluids: 90mls/hr Diet: NPO vitals q4h, monitor I & Os <Scarlet Trotter - 03/25/18 18:01> - Attending Attestation The exam, history, and the medical decision-making described in the above note were completed with the assistance of the resident physician. I reviewed and agree with the findings presented. I attest that I had a [id number] encounter with the patient on the same day, and personally performed and documented my assessment and findings in the medical record. I discussed and evaluated the patient with the residents. Patient living at [facility], was ambulating without her walker and had a mechanical fall with confirmed hip fracture. She has Parkinson's disease, putting her at higher risk of falls. Plan is for surgical correction of mildly displaced fracture. <Mich Yadav - 03/25/18 20:20>
--- NOTE | 2018-03-25 12:56 | XR ---
EXAM DATE: 03/25/2018 12:50 PM EDT AGE/SEX: 82 years / Female INDICATIONS: Fell today, weakness, hip pain, short of breath CLINICAL DATA: This is the patient's initial encounter. Patient reports that signs and symptoms have been present for 1 day and indicates a pain score of Nonresponsive. MEDICAL/SURGICAL HISTORY: Dementia. Parkinson's disease. Non-responsive. COMPARISON: [facility] [place], CHEST SINGLE AP, 08/01/2017. . FINDINGS: A single AP view of the chest demonstrates the lungs to be symmetrically aerated without evidence of mass, infiltrate or effusion. The cardiomediastinal contours are unremarkable. Osseous structures a re intact. CONCLUSION: No acute cardiopulmonary disease Electronically signed by: Jeffrey Hand MD 03/25/2018 12:55 PM EDT
[2018-03-25 13:07] LABS: Baso % (Auto) 0.8 % (0.0-2.0); Eos # (Auto) 0.1 th/mm3 (0.0-0.4); Eos % (Auto) 2.3 % (0.0-4.0); Hematocrit 34.5 % (35.0-46.0); Hemoglobin 11.7 gm/dL (11.6-15.3); Lymph # (Auto) 0.7 th/mm3 (1.0-4.8); Lymph % (Auto) 12.3 % (9.0-44.0); Mean Corpuscular HGB Conc 33.9 % (32.0-36.0); Mean Corpuscular Hemoglobin 34.1 pg (27.0-34.0); Mean Corpuscular Volume 100.6 fL (80.0-100.0); Mean Platelet Volume 8.1 fL (7.0-11.0); Mono # (Auto) 0.5 th/mm3 (0.0-0.9); Mono % (Auto) 8.2 % (0.0-8.0); Neut # (Auto) 4.4 th/mm3 (1.8-7.7); Neut % (Auto) 76.4 % (16.0-70.0); Platelet Count 184 th/mm3 (150-450); Red Blood Count 3.43 mil/mm3 (4.00-5.30); Red Cell Distribution Width 14.5 % (11.6-17.2); White Blood Count 5.7 th/mm3 (4.0-11.0)
[2018-03-25 13:10] LABS: Activated Partial Thrombo Time 22.6 sec (24.3-30.1); Prothrombin Time 10.1 sec (9.8-11.6)
[2018-03-25] MEDS ORDERED: Bisacodyl 10 MG Supp RECTAL PRN (13:15)
[2018-03-25] MEDS ORDERED: Acetaminophen 325 MG Tablet PO PRN (13:15)
[2018-03-25 13:19] LABS: Albumin 3.1 g/dL (3.4-5.0); Anion Gap 6 meq/L (5-15); Aspartate Aminotransferase 13 U/L (15-37); Blood Urea Nitrogen 20 mg/dL (7-18); Calcium 8.3 mg/dL (8.5-10.1); Carbon Dioxide 30.6 meq/L (21.0-32.0); Chloride 105 meq/L (98-107); Glomerular Filtration Rate 64 mL/min (>89); Glucose,Random 93 mg/dL (74-106); Potassium 3.9 meq/L (3.5-5.1); Sodium 142 meq/L (136-145)
[2018-03-25 13:22] LABS: Alanine Aminotransferase 9 U/L (10-53); Alkaline Phosphatase 65 U/L (45-117); Total Protein 6.7 g/dL (6.4-8.2)
[2018-03-25 13:37] LABS: Bacteria,Urine Many /hpf; Bilirubin,Urine Negative (Negative); Clarity,Urine Cloudy (Clear); Color,Urine Yellow (Yellw/Straw); Glucose,Urine (UA) Negative (Negative); Leukocyte Esterase,Urine Moderate (Negative); Mucus,Urine Few /lpf (Occasional); Nitrite,Urine Positive (Negative); Specific Gravity,Urine 1.016 (1.002-1.035); Squamous Epithelial Cell,Urine 1 /hpf (0-5)
[2018-03-25] MEDS: Sod Chloride 0.9% Inj 1,000 ML IV.CONT SCH (17:15)
--- NOTE | 2018-03-25 17:42 | P.CONOP ---
[facility] Orthopedics Consult Note - [facility] Consult date: 03/25/18 Consult reason: fracture Chief complaint: Right hip fracture Narrative: 82-year-old woman who presents to the emergency department complaining of right hip pain. She reports that she fell out of her wheelchair. Patient is a history of Parkinson's disease, and some dementia. Report from EMS is that it was a unwitnessed fall, staff found her and she reported that she had fallen out of the wheelchair. She denies any head pain, neck pain, or other injuries. She has pain only when they move her right leg. She otherwise reports she is been feeling well. History is a little bit limited due to dementia. Review of Systems Relatively limited due to patient's dementia but currently denies fevers, chills , nausea, vomiting, chest pain, abdominal pain, difficulty breathing, cough. Reports right hip pain. Denies other extremity injury. Denies back pain, weakness, numbness or tingling. Denies any change in urination recently. Denies any blurry vision or throat pain. [facility] - History History Provided By: Patient - Medical History Medical History: Medical History (Last Reviewed 03/25/18 @ 11:36 by Jake Muir MD) Cardiac syncope Constipation Dementia Fall GI bleed Parkinsons Walking difficulty due to multiple sites - Surgical History Surgical History: Surgical History (Last Updated 03/25/18 @ 17:51 by Scarlet Trotter MD, R2) No history of previous surgery - Family History Family History: Family History (Last Updated 03/25/18 @ 17:54 by Scarlet Trotter MD, R2) Father Heart disease - Tobacco History Smoking Status: Never smoker - Alcohol History How Often Do You Have a Drink Containing Alcohol: Never - Substance Use History Substance History: No History of Abuse - Travel History Recent Travel Out of the Country Within the Last 8 Weeks: No - Immunization History Tetanus Immunization: Unsure Medications and Allergies Active Medications: Active Medications Acetaminophen (Tylenol) 650 mg PO Q4H PRN PRN Reason: Mild pain=< 5/Temp elevation Hydrocodone Bitart/Acetaminophen ([place] 5/325) 1 tab PO Q4H PRN PRN Reason: Pain 6-10 Al Hydroxide/Mg Hydroxide (Milk Of Magnesia Liq) 30 ml PO DAILY PRN PRN Reason: MILD Constipation Bisacodyl (Dulcolax Supp) 10 mg RECTAL DAILY PRN PRN Reason: SEVERE Constipation Calcium Carbonate (Tums Chew) 500 mg PO DAILY PRN PRN Reason: Heartburn Carbidopa/Levodopa (Sinemet 25/100 Mg) 1 tab PO QID [facility] Docusate Sodium (Colace) 200 mg PO HS [facility] Ferrous Sulfate (Ferosul) 325 mg PO BID [facility] Ceftriaxone Sodium 1,000 mg/ (Sodium Chloride) 100 mls @ 200 mls/hr IV.SIG Q24H [facility] Last Admin: 03/25/18 17:16 Dose: 200 mls/hr Sodium Chloride (Ns Inj) 1,000 mls @ 90 mls/hr IV.CONT .Q11H7M [facility] Last Admin: 03/25/18 17:15 Dose: 90 mls/hr Pantoprazole Sodium (Protonix) 40 mg PO DAILY [facility] Sodium Chloride (Ns Flush) 2 ml IV.FLUSH UNSCH PRN PRN Reason: FLUSH AFTER USING IV ACCESS Sodium Chloride (Sodium Chloride) 1 gm PO DAILY [facility] Allergies Allergy/AdvReac Type Severity Reaction Status Date / Time penicillin G Allergy Severe Anaphylaxis Verified 03/25/18 11:31 Home Medications Medication Instructions Recorded Confirmed Type acetaminophen [Tylenol] 650 mg PO Q4H PRN 03/25/18 03/25/18 History bisacodyl [Dulcolax (bisacodyl)] 10 mg [place] DAILY PRN 03/25/18 03/25/18 History calcium carbonate [Tums] 200 mg PO DAILY PRN 03/25/18 03/25/18 History carbidopa-levodopa [Sinemet] 1 tab PO QID 03/25/18 03/25/18 History cholecalciferol (vitamin D3) 2,000 unit PO DAILY 03/25/18 03/25/18 History [Vitamin D3] docusate sodium [Colace] 200 mg PO HS 03/25/18 03/25/18 History ferrous sulfate 325 mg PO BID 03/25/18 03/25/18 History magnesium hydroxide [Milk of 30 ml PO DAILY PRN 03/25/18 03/25/18 History Magnesia] melatonin 10 mg PO HS 03/25/18 03/25/18 History pantoprazole 40 mg PO DAILY 03/25/18 03/25/18 History sodium chloride 1 gm PO DAILY 03/25/18 03/25/18 History Exam Vital signs: Vital Signs 03/25/18 11:24 03/25/18 12:48 Temperature 97.8 F Pulse Rate 72 75 Respiratory Rate 20 20 Blood Pressure 188/84 H 187/89 H Pulse Oximetry 96 Intake & Output 03/24/18 03/25/18 03/25/18 18:59 06:59 18:59 Weight 53.977 kg Other: # Urine Diapers 2 Narrative: Awake, alert, no acute distress. Mild baseline dementia Normocephalic Pupils equal No JVD Moist mucous membranes Soft nontender abdomen Regular rate Unlabored respirations Right lower extremity: Positive logroll. Unable to assess hip and knee range of motion due to pain. Full active range of motion of the ankle and toes. Positive EHL, FHL, dorsiflexion and plantar flexion. Sensation intact. Brisk cap refill. Bilateral upper extremities and left lower extremity: No visible deformities or tenderness palpation. Full active range of motion and strength throughout. Sensation intact. Brisk cap refill. No rash Normal affect Results - Labs Result Diagrams: 03/25/18 12:40 03/25/18 12:40 Labs: Laboratory Results - last 24 hr 03/25/18 03/25/18 03/25/18 12:40 12:40 12:40 WBC 5.7 RBC 3.43 L Hgb 11.7 Hct 34.5 L MCV 100.6 H MCH 34.1 H MCHC 33.9 RDW 14.5 Plt Count 184 MPV 8.1 Neut % (Auto) 76.4 H Lymph % (Auto) 12.3 [place] % (Auto) 8.2 H Eos % (Auto) 2.3 Baso % (Auto) 0.8 Neut # (Auto) 4.4 Lymph # (Auto) 0.7 L [place] # (Auto) 0.5 Eos # (Auto) 0.1 Baso # (Auto) 0.0 WBC Differential . Differential Comment Auto diff final PT 10.1 INR 1.0 APTT 22.6 L Sodium 142 Potassium 3.9 Chloride 105 Carbon Dioxide 30.6 Anion Gap 6 BUN 20 H Creatinine 0.85 Estimated GFR 64 L Random Glucose 93 Calcium 8.3 L Total Bilirubin 0.8 AST 13 L ALT 9 L Alkaline Phosphatase 65 Total Protein 6.7 Albumin 3.1 L Urine Color Urine Clarity Urine pH Ur Specific [place] Urine Protein Urine Glucose (UA) Urine Ketones Urine Occult Blood Urine Nitrate Urine Bilirubin Urine Urobilinogen Ur Leukocyte Esterase Urine RBC Urine WBC Urine WBC Clumps Ur Squamous Epith Cells Urine Bacteria Urine Mucus Ur Microscopic Review 03/25/18 12:55 WBC RBC Hgb Hct MCV MCH MCHC RDW Plt Count MPV Neut % (Auto) Lymph % (Auto) [place] % (Auto) Eos % (Auto) Baso % (Auto) Neut # (Auto) Lymph # (Auto) [place] # (Auto) Eos # (Auto) Baso # (Auto) WBC Differential Differential Comment PT INR APTT Sodium Potassium Chloride Carbon Dioxide Anion Gap BUN Creatinine Estimated GFR Random Glucose Calcium Total Bilirubin AST ALT Alkaline Phosphatase Total Protein Albumin Urine Color Yellow Urine Clarity Cloudy H Urine pH 6.0 Ur Specific [place] 1.016 Urine Protein 30 H Urine Glucose (UA) Negative Urine Ketones Negative Urine Occult Blood Large H Urine Nitrate Positive H Urine Bilirubin Negative Urine Urobilinogen Less than 2 Ur Leukocyte Esterase Moderate H Urine RBC Urine WBC 65 H Urine WBC Clumps Occasional H Ur Squamous Epith Cells 1 Urine Bacteria Many H Urine Mucus Few H Ur Microscopic Review Not Reportable - Diagnostic results Imaging: Impressions Hip X-Ray 03/25/18 11:32 CONCLUSION: Mildly displaced intertrochanteric fracture with avulsion of the lesser trochanter. Chest X-Ray 03/25/18 12:22 CONCLUSION: No acute cardiopulmonary disease Assessment and Plan - Assessment and Plan 82-year-old female with multiple medical problems with reported fall and a acute onset of right hip pain and inability to ambulate. Radiograph reviewed by myself and with the patient. Patient has sustained a closed right intertrochanteric femur fracture. Recommendation for intramedullary nail of her right femur fracture. Risks, benefits, alternatives were discussed with the patient and her family. Risks including but not limited to: Infection, nonunion or malunion, hardware malposition or failure, neurovascular injury, persistent hip pain and/or stiffness, possible need for further surgery, neurovascular injury, and other unforeseen complications were all discussed with the patient and her family. At this time they have consented to the above-mentioned procedure. Patient has been n.p.o. since early this morning for surgery today. Postoperative course was discussed with the patient and her family. Patient will be limited weightbearing for at least the first couple of weeks with progression to weightbearing as tolerated over the next several weeks. I did explain to the patient and her family that these fractures do take approximately 3-6 months to fully heal.
[2018-03-25] MEDS ORDERED: Naloxone Inj 0.4 MG/ML Vial IV.PUSH PRN (17:47)
[2018-03-25] MEDS ORDERED: Morphine Sulfate Inj 2 MG/ML Vial IV.PUSH PRN (18:00)
[2018-03-25] MEDS ORDERED: Clindamycin Inj 600 MG/4 ML Vial ONE (18:16)
[2018-03-25] MEDS ORDERED: Sodium Chlor 0.9% Inj 250 ML IV.CONT ONE (18:22)
[2018-03-25] MEDS ORDERED: Phenylephrine/NS 1000 MCG/10ML Syringe IV.PUSH ONE (18:22)
[2018-03-25] MEDS ORDERED: Neostigmine Inj 5 MG/5 ML Syringe IV.PUSH ONE (18:22)
[2018-03-25] MEDS ORDERED: Lidocaine PF 1% Inj 5 ML Syringe OTHER ONE (18:22)
[2018-03-25] MEDS ORDERED: Glycopyrrolate Inj 1 MG/5 ML Syringe IV.PUSH ONE (18:22)
[2018-03-25] MEDS ORDERED: fentaNYL Citrate Inj 250 MCG/5 ML Ampul ONE (19:01)
[2018-03-25] MEDS ORDERED: fentaNYL Citrate Inj 100 MCG/2 ML Ampul ONE (19:05)
[2018-03-25] MEDS ORDERED: Post-op Orders (for Pharmacy) OTHER STA (19:28)
--- NOTE | 2018-03-25 19:30 | P.BOP ---
Date of procedure: 03/25/18 Procedure: IMN R femur Implants: Synthes TFN 10mm diameter Anesthesia: GETA Surgeon: Emmy Bautista MD Estimated blood loss (mL): 75 Pathology: none sent Condition: stable Disposition: PACU
--- NOTE | 2018-03-25 19:35 | P.OP ---
Date of procedure: 03/25/18 Procedure: Intramedullary nail right intertrochanteric femur fracture Implants: Synthes TFN 10 mm diameter nail Anesthesia: AARON Surgeon: Emmy Bautista MD Estimated blood loss (mL): 75 Pathology: none sent Operation and Findings: Indications for procedure: 82-year-old female who presented to the emergency department after a reported fall with acute onset of right hip pain. Patient was found to have a closed right intertrochanteric femur fracture. Recommendation for operative intervention in the form of intramedullary nail of her right intertrochanteric femur fracture. Risks, benefits, alternatives were discussed with the patient and her family. At this time her family has consented to the procedure. Description of procedure: Patient was brought back to the operating room where general anesthesia then ensued. Patient was then carefully positioned supine on the operating room fracture table with all bony promises well-padded. Patient was then prepped and draped in standard sterile fashion. The operative antibiotics were given within 1 hour of incision. A timeout was performed to identify the correct patient, side, site and procedure to be performed. A small approximately 1/2 inch incision was made just proximal and posterior to the tip of the greater trochanter. Sharp dissection was performed to the skin, subcutaneous tissue and fascia. The fracture was reduced through the use of traction and rotation on the fracture table. A guidewire was placed into the tip of the greater trochanter. This was advanced into the lesser trochanteric region once verified appropriate position on AP and lateral radiographs. An opening reamer was then utilized to allow access to the femoral canal and advanced to the lesser trochanteric region. A Synthes 10 mm diameter nail was then inserted into the tip of the greater trochanter, past the fracture site and into the proximal femur. This was advanced into appropriate position on AP and lateral radiographs. A small lateral incision was made over the proximal femur to allow the guide sleeves for the proximal locking blade to be placed down to the lateral aspect of the proximal femur. A guidewire was then placed into the femoral neck and head in a center center position. This was again confirmed on AP and lateral radiographs. This was subsequently measured, drilled and an appropriate length proximal locking blade placed. The proximal locking screw was tightened down and backed off a half of turn to allow for appropriate compression. The distal locking screw was then placed with a small lateral incision, guide sleeves placed down to the lateral cortex, drilled, measured and appropriate length locking screw placed. The insertion handle was removed. Final radiographs were obtained which demonstrated the fracture was well reduced and hardware in appropriate position. All wounds were thoroughly irrigated with normal saline laden with gentamicin. The fascia was closed with #1 Vicryl sutures and the subcutaneous tissue closed with 3-0 Vicryl suture. The skin was closed with darcy and sterile dressings applied. Patient was carefully transitioned back to her hospital bed and awoken from general anesthesia without complication. Disposition: Partial weightbearing 50% right lower extremity.
--- NOTE | 2018-03-25 19:57 | XR ---
EXAM DATE: 03/25/2018 7:37 PM EDT AGE/SEX: 82 years / Female INDICATIONS: Open reduction internal fixation of the right hip. CLINICAL DATA: This is the patient's subsequent encounter. Patient reports that signs and symptoms h ave been present for 1 day and indicates a pain score of Nonresponsive. MEDICAL/SURGICAL HISTORY: . Dementia. Parkinson's disease. Non-responsive. COMPARISON: No prior exams available for comparison. FINDINGS: There is dwayne fixation of the proximal right femur with anatomic alignment. No complications identifie d. CONCLUSION: Fixation proximal right femur. Electronically signed by: Aaron Sims MD 03/25/2018 7:55 PM EDT
[2018-03-25] MEDS ORDERED: ceFAZolin 1 GM Premix Inj 1 GM/50 ML IV.SIG ONE (20:00)
[2018-03-25] MEDS: Ferrous Sulfate 325 MG Tablet PO SCH (22:05)
[2018-03-25] MEDS: Docusate Sodium 100 MG Capsule PO SCH (22:05)
[2018-03-26] MEDS: ceFAZolin 1 GM Premix Inj 1 GM/50 ML FROZ.PIGGY IV.SIG SCH ×3 (02:15→18:00)
[2018-03-26] MEDS: Sod Chloride 0.9% Inj 1,000 ML IV.CONT SCH ×2 (05:00→19:01)
[2018-03-26 05:57] LABS: Hematocrit 29.6 % (35.0-46.0); Mean Corpuscular HGB Conc 33.9 % (32.0-36.0); Mean Corpuscular Hemoglobin 34.6 pg (27.0-34.0); Mean Corpuscular Volume 102.1 fL (80.0-100.0); Platelet Count 166 th/mm3 (150-450); Red Cell Distribution Width 14.1 % (11.6-17.2); White Blood Count 10.4 th/mm3 (4.0-11.0)
[2018-03-26 06:08] LABS: Calcium 7.9 mg/dL (8.5-10.1); Carbon Dioxide 27.9 meq/L (21.0-32.0)
--- NOTE | 2018-03-26 06:32 | P.PNOP ---
Subjective Interval history: Patient resting comfortably this morning. Reports her right hip pain is improved since surgery Physical Exam Vital signs: Vital Signs 03/25/18 11:24 03/25/18 12:48 03/25/18 17:58 Temperature 97.8 F Pulse Rate 72 75 88 Respiratory Rate 20 20 20 Blood Pressure 188/84 H 187/89 H 174/65 H Pulse Oximetry 96 03/25/18 19:31 03/25/18 19:45 03/25/18 20:00 Temperature 98.1 F 97.4 F L 97.4 F L Pulse Rate 60 67 70 Respiratory Rate 14 14 14 Blood Pressure 146/84 H 130/75 141/65 H Pulse Oximetry 100 96 98 03/25/18 20:15 03/26/18 00:00 03/26/18 03:08 Temperature 97.4 F L 98.4 F 97.9 F Pulse Rate 75 71 78 Respiratory Rate 14 17 18 Blood Pressure 171/74 H 113/53 L 117/55 L Pulse Oximetry 98 93 L 96 Intake & Output 03/25/18 03/25/18 03/26/18 06:59 18:59 06:59 Intake Total 100 / 100 1830 / 1830 Output Total 30 / 30 Balance 100 / 100 1800 / 1800 Weight 53.977 kg 53.9 kg Intake: IV 100 / 100 1050 / 1050 NS Inj 1,000 ML @ 90 mls/hr IV. 1000 / 1000 CONT .Q11H7M [facility] Rx#:[id number] Ancef 1 GM Premix Inj 1 gm In 50 / 50 50 ml @ 200 mls/hr IV.SIG Q8H [facility] Rx#:[id number] Rocephin Inj 1,000 MG In NS Inj 100 / 100 100 ML @ 200 mls/hr IV.SIG Q24H [facility] Rx#:[id number] Oral 480 / 480 Anesthesia Amount 300 / 300 Output: Estimated Blood Loss Other: # Incontinent Voids 2 # Urine Diapers 2 # Bowel Movements 0 Narrative: Sleeping but arousable Right lower extremity: Dressings in place without significant drainage. Negative Homans. Neurovascularly intact distally. Brisk cap refill Results - Labs CBC & Chem 7: 03/26/18 04:18 03/26/18 04:18 Laboratory Results - last 24 hr 03/25/18 03/25/18 03/25/18 12:40 12:40 12:40 WBC 5.7 RBC 3.43 L Hgb 11.7 Hct 34.5 L MCV 100.6 H MCH 34.1 H MCHC 33.9 RDW 14.5 Plt Count 184 MPV 8.1 Neut % (Auto) 76.4 H Lymph % (Auto) 12.3 [place] % (Auto) 8.2 H Eos % (Auto) 2.3 Baso % (Auto) 0.8 Neut # (Auto) 4.4 Lymph # (Auto) 0.7 L [place] # (Auto) 0.5 Eos # (Auto) 0.1 Baso # (Auto) 0.0 WBC Differential . Differential Comment Auto diff final PT 10.1 INR 1.0 APTT 22.6 L Sodium 142 Potassium 3.9 Chloride 105 Carbon Dioxide 30.6 Anion Gap 6 BUN 20 H Creatinine 0.85 Estimated GFR 64 L Random Glucose 93 Calcium 8.3 L Total Bilirubin 0.8 AST 13 L ALT 9 L Alkaline Phosphatase 65 Total Protein 6.7 Albumin 3.1 L Urine Color Urine Clarity Urine pH Ur Specific [place] Urine Protein Urine Glucose (UA) Urine Ketones Urine Occult Blood Urine Nitrate Urine Bilirubin Urine Urobilinogen Ur Leukocyte Esterase Urine RBC Urine WBC Urine WBC Clumps Ur Squamous Epith Cells Urine Bacteria Urine Mucus Ur Microscopic Review 03/25/18 03/26/18 03/26/18 12:55 04:18 04:18 WBC 10.4 D RBC 2.90 L Hgb 10.0 L Hct 29.6 L MCV 102.1 H MCH 34.6 H MCHC 33.9 RDW 14.1 Plt Count 166 MPV 8.0 Neut % (Auto) Lymph % (Auto) [place] % (Auto) Eos % (Auto) Baso % (Auto) Neut # (Auto) Lymph # (Auto) [place] # (Auto) Eos # (Auto) Baso # (Auto) WBC Differential Differential Comment PT INR APTT Sodium 141 Potassium 4.0 Chloride 106 Carbon Dioxide 27.9 Anion Gap 7 BUN 21 H Creatinine 0.91 Estimated GFR 59 L Random Glucose 116 H Calcium 7.9 L Total Bilirubin AST ALT Alkaline Phosphatase Total Protein Albumin Urine Color Yellow Urine Clarity Cloudy H Urine pH 6.0 Ur Specific [place] 1.016 Urine Protein 30 H Urine Glucose (UA) Negative Urine Ketones Negative Urine Occult Blood Large H Urine Nitrate Positive H Urine Bilirubin Negative Urine Urobilinogen Less than 2 Ur Leukocyte Esterase Moderate H Urine RBC Urine WBC 65 H Urine WBC Clumps Occasional H Ur Squamous Epith Cells 1 Urine Bacteria Many H Urine Mucus Few H Ur Microscopic Review Not Reportable - Imaging Impressions Hip X-Ray 03/25/18 00:00 CONCLUSION: Fixation proximal right femur. Hip X-Ray 03/25/18 11:32 CONCLUSION: Mildly displaced intertrochanteric fracture with avulsion of the lesser trochanter. Chest X-Ray 03/25/18 12:22 CONCLUSION: No acute cardiopulmonary disease Assessment and Plan - Assessment and Plan 82-year-old female postop day 1 status post right intramedullary nail for intertrochanteric femur fracture 1. Partial weightbearing 50% right lower extremity 2. PT for mobilization 3. Lovenox for DVT prophylaxis while inpatient. May switch to Xarelto upon discharge 4. Discharge planning: Patient may likely require placement upon discharge. Patient may follow-up in my office in 2 weeks.
[2018-03-26] MEDS: Enoxaparin Inj 40 MG/0.4 ML Syringe SQ SCH (08:41)
[2018-03-26] MEDS: Sodium Chloride 1 GM Tablet PO SCH (08:42)
[2018-03-26] MEDS: Ferrous Sulfate 325 MG Tablet PO SCH ×2 (08:42→20:44)
--- NOTE | 2018-03-26 15:43 | P.PNFP ---
Subjective Interval history: 82-year-old female with a history of Parkinson's disease admitted with hip fracture after a mechanical fall. Feeling well post-operatively (doesn't remember having surgery yesterday). Not in any pain. Denies CP/SOB. Eating breakfast without difficulty. <TiffanyRaul S - 03/26/18 15:42> Results - Labs Result diagrams: 03/26/18 04:18 03/26/18 04:18 <Mich Yadav L - 03/26/18 16:12> Abnormal lab results 03/26/18 03/26/18 Range/Units 04:18 04:18 RBC 2.90 L (4.00-5.30) mil/mm3 Hgb 10.0 L (11.6-15.3) gm/dL Hct 29.6 L (35.0-46.0) % MCV 102.1 H (80.0-100.0) fL MCH 34.6 H (27.0-34.0) pg BUN 21 H (7-18) mg/dL Estimated GFR 59 L (>89) mL/min Random Glucose 116 H (74-106) mg/dL Calcium 7.9 L (8.5-10.1) mg/dL Short CBC 03/26/18 Range/Units 04:18 WBC 10.4 D (4.0-11.0) th/mm3 Hgb 10.0 L (11.6-15.3) gm/dL Hct 29.6 L (35.0-46.0) % Plt Count 166 (150-450) th/mm3 [facility] 03/26/18 04:18 Sodium 141 Potassium 4.0 Chloride 106 Carbon Dioxide 27.9 BUN 21 H Creatinine 0.91 Calcium 7.9 L <Mich Yadav L - 03/26/18 16:12> Abnormal lab results 03/26/18 03/26/18 Range/Units 04:18 04:18 RBC 2.90 L (4.00-5.30) mil/mm3 Hgb 10.0 L (11.6-15.3) gm/dL Hct 29.6 L (35.0-46.0) % MCV 102.1 H (80.0-100.0) fL MCH 34.6 H (27.0-34.0) pg BUN 21 H (7-18) mg/dL Estimated GFR 59 L (>89) mL/min Random Glucose 116 H (74-106) mg/dL Calcium 7.9 L (8.5-10.1) mg/dL Short CBC 03/26/18 Range/Units 04:18 WBC 10.4 D (4.0-11.0) th/mm3 Hgb 10.0 L (11.6-15.3) gm/dL Hct 29.6 L (35.0-46.0) % Plt Count 166 (150-450) th/mm3 BMP 03/26/18 04:18 Sodium 141 Potassium 4.0 Chloride 106 Carbon Dioxide 27.9 BUN 21 H Creatinine 0.91 Calcium 7.9 L <Raul Allen S - 03/26/18 15:42> - Imaging Impressions Hip X-Ray 03/25/18 00:00 CONCLUSION: Fixation proximal right femur. <Mich Yadav - 03/26/18 16:12> Impressions Hip X-Ray 03/25/18 00:00 CONCLUSION: Fixation proximal right femur. <Raul Allen S - 03/26/18 15:42> Physical Exam Vital signs: Vital Signs 03/25/18 17:58 03/25/18 19:31 03/25/18 19:45 Temperature 98.1 F 97.4 F L Pulse Rate 88 60 67 Respiratory Rate 20 14 14 Blood Pressure 174/65 H 146/84 H 130/75 Pulse Oximetry 100 96 03/25/18 20:00 03/25/18 20:15 03/26/18 00:00 Temperature 97.4 F L 97.4 F L 98.4 F Pulse Rate 70 75 71 Respiratory Rate 14 14 17 Blood Pressure 141/65 H 171/74 H 113/53 L Pulse Oximetry 98 98 93 L 03/26/18 03:08 03/26/18 08:00 03/26/18 10:54 Temperature 97.9 F 98.6 F Pulse Rate 78 79 Respiratory Rate 18 16 Blood Pressure 117/55 L 140/63 Pulse Oximetry 96 96 95 03/26/18 12:00 Temperature 97.9 F Pulse Rate 81 Respiratory Rate 16 Blood Pressure 108/55 L Pulse Oximetry 98 Intake & Output 03/25/18 03/26/18 03/26/18 18:59 06:59 18:59 Intake Total 100 / 100 1830 / 1830 Output Total 30 / 30 Balance 100 / 100 1800 / 1800 Weight 53.977 kg 53.9 kg 53.9 kg Intake: IV 100 / 100 1050 / 1050 NS Inj 1,000 ML @ 90 mls/hr IV. 1000 / 1000 CONT .Q11H7M SANDI Rx#:[id number] Ancef 1 GM Premix Inj 1 gm In 50 / 50 50 ml @ 200 mls/hr IV.SIG Q8H SANDI Rx#:[id number] Rocephin Inj 1,000 MG In NS Inj 100 / 100 100 ML @ 200 mls/hr IV.SIG Q24H SANDI Rx#:[id number] Oral 480 / 480 Anesthesia Amount 300 / 300 Output: Estimated Blood Loss Other: # Voids 1 # Incontinent Voids 2 # Urine Diapers 2 # Bowel Movements 0 Weight On Admission 53.9 kg <Mich Yadav L - 03/26/18 16:12> Vital Signs 03/25/18 17:58 03/25/18 19:31 03/25/18 19:45 Temperature 98.1 F 97.4 F L Pulse Rate 88 60 67 Respiratory Rate 20 14 14 Blood Pressure 174/65 H 146/84 H 130/75 Pulse Oximetry 100 96 03/25/18 20:00 03/25/18 20:15 03/26/18 00:00 Temperature 97.4 F L 97.4 F L 98.4 F Pulse Rate 70 75 71 Respiratory Rate 14 14 17 Blood Pressure 141/65 H 171/74 H 113/53 L Pulse Oximetry 98 98 93 L 03/26/18 03:08 03/26/18 08:00 03/26/18 10:54 Temperature 97.9 F 98.6 F Pulse Rate 78 79 Respiratory Rate 18 16 Blood Pressure 117/55 L 140/63 Pulse Oximetry 96 96 95 03/26/18 12:00 Temperature 97.9 F Pulse Rate 81 Respiratory Rate 16 Blood Pressure 108/55 L Pulse Oximetry 98 Intake & Output 03/25/18 03/26/18 03/26/18 18:59 06:59 18:59 Intake Total 100 / 100 1829 / 0 Output Total 30 / 30 Balance 100 / 100 1800 / 1800 Weight 53.977 kg 53.9 kg 53.9 kg Intake: IV 100 / 100 1050 / 1050 NS Inj 1,000 ML @ 90 mls/hr IV. 1000 / 1000 CONT .Q11H7M SANDI Rx#:[id number] Ancef 1 GM Premix Inj 1 gm In 50 / 50 50 ml @ 200 mls/hr IV.SIG Q8H SANDI Rx#:[id number] Rocephin Inj 1,000 MG In NS Inj 100 / 100 100 ML @ 200 mls/hr IV.SIG Q24H SANDI Rx#:[id number] Oral 480 / 480 Anesthesia Amount 300 / 300 Output: Estimated Blood Loss 30 30 Other: # Voids 1 # Incontinent Voids 2 # Urine Diapers 2 # Bowel Movements 0 Weight On Admission 53.9 kg <Raul Allen [facility] 03/26/18 15:42> - Constitutional no acute distress, average body habitus, cooperative <Raul Allen [facility] 15:42> - Routine HEENT Exam Head: Present: normocephalic, atraumatic <Raul Allen [facility] 03/26/18 15:42> - Routine Respiratory Exam Present: CTA bilaterally. Absent: accessory muscle use, wheezes, crackles < Raul Allen [facility] 03/26/18 15:42> - Routine Cardiovascular Exam Present: RRR, S1, S2. Absent: murmur <Raul Allen [facility] 03/26/18 15:42> - Routine Abdominal Exam Present: soft. Absent: tenderness, distended <Raul Allen [facility] 03/26/18 15:42 > - Routine Extremities Exam Absent: cyanosis, edema <Raul Allen [facility] 03/26/18 15:42> - Routine Neurological Exam Present: alert, moving all extremities, tremors (resting tremor and lip occasional lip smacking). Absent: oriented X3 (oriented to person, does not recall having surgery, confused as to the year) <Raul Allen 03/26/18 15: 42> Assessment and Plan - Assessment (1) Closed displaced intertrochanteric fracture of right femur Code(s): S72.141A - Displaced intertrochanteric fracture of right femur, initial encounter for closed fracture Status: Acute (2) UTI (urinary tract infection) Code(s): N39.0 - Urinary tract infection, site not specified Status: Acute (3) Parkinson disease Code(s): G20 - Parkinson's disease Status: Acute (4) Nutrition, metabolism, and development symptoms Code(s): R63.8 - Other symptoms and signs concerning food and fluid intake Status: Acute <Mich Yadav - 03/26/18 16:12> (1) Closed displaced intertrochanteric fracture of right femur Code(s): S72.141A - Displaced intertrochanteric fracture of right femur, initial encounter for closed fracture Status: Acute Plan: Now POD 1 s/p right intramedullary nail for intertrochanteric femur fracture Orthopedic consulted for surgery, appreciate recs 1. Partial weightbearing 50% right lower extremity 2. PT for mobilization 3. Lovenox for DVT prophylaxis while inpatient. May switch to Xarelto upon discharge 4. Discharge planning: Patient may likely require placement upon discharge. Patient may follow-up in my office in 2 weeks. Pain control with [place] and Tylenol (2) UTI (urinary tract infection) Code(s): N39.0 - Urinary tract infection, site not specified Status: Acute Plan: UA on admission positive for positive nitrites and leukocyte esterases and bacteria Urine culture pending Continue Rocephin 1 g daily NS 90mls/hr (3) Parkinson disease Code(s): G20 - Parkinson's disease Status: Acute Plan: Continue home levodopa and carbidopa (4) Nutrition, metabolism, and development symptoms Code(s): R63.8 - Other symptoms and signs concerning food and fluid intake Status: Acute Plan: Fluids: 90mls/hr Diet: NPO Electrolytes: Continue home salt tabs, monitor and replete if needed vitals q4h, monitor I & Os <Raul Allen S - 03/26/18 15:36> - Assessment and Plan Discharge Planning: Likely will need rehab placement, pending PT evaluation <Raul Allen S - 03/26/18 15:42> - Attending Attestation The exam, history, and the medical decision-making described in the above note were completed with the assistance of the resident physician. I reviewed and agree with the findings presented. I attest that I had a [id number] encounter with the patient on the same day, and personally performed and documented my assessment and findings in the medical record. Patient evaluated with the resident team this morning. She is S/P ORIF of right hip fracture. PT/ OT on board to assess rehab potential and plan. Receiving anticoagulation after the surgery. Also with urinary tract infection being treated with Rocephin. <Mich Yadav Magdy - 03/26/18 16:12> <Raul Allen S - Last Filed: 03/26/18 15:36> (1) Closed displaced intertrochanteric fracture of right femur Qualifiers: Encounter type: initial encounter Qualified Code(s): S72.141A - Displaced intertrochanteric fracture of right femur, initial encounter for closed fracture (2) UTI (urinary tract infection) Qualifiers: Urinary tract infection type: site unspecified Hematuria presence: without hematuria Qualified Code(s): N39.0 - Urinary tract infection, site not specified <Mich Yadav L - Last Filed: 03/26/18 16:12> (1) Closed displaced intertrochanteric fracture of right femur Qualifiers: Encounter type: initial encounter Qualified Code(s): S72.141A - Displaced intertrochanteric fracture of right femur, initial encounter for closed fracture (2) UTI (urinary tract infection) Qualifiers: Urinary tract infection type: site unspecified Hematuria presence: without hematuria Qualified Code(s): N39.0 - Urinary tract infection, site not specified <Allen,Raul S - Last Filed: 03/26/18 15:36> (1) Closed displaced intertrochanteric fracture of right femur Qualifiers: Encounter type: initial encounter Qualified Code(s): S72.141A - Displaced intertrochanteric fracture of right femur, initial encounter for closed fracture (2) UTI (urinary tract infection) Qualifiers: Urinary tract infection type: site unspecified Hematuria presence: without hematuria Qualified Code(s): N39.0 - Urinary tract infection, site not specified <Mich Yadav - Last Filed: 03/26/18 16:12> (1) Closed displaced intertrochanteric fracture of right femur Qualifiers: Encounter type: initial encounter Qualified Code(s): S72.141A - Displaced intertrochanteric fracture of right femur, initial encounter for closed fracture (2) UTI (urinary tract infection) Qualifiers: Urinary tract infection type: site unspecified Hematuria presence: without hematuria Qualified Code(s): N39.0 - Urinary tract infection, site not specified
[2018-03-26] MEDS: Docusate Sodium 100 MG Capsule PO SCH (20:44)
[2018-03-27] MEDS: Sod Chloride 0.9% Inj 1,000 ML IV.CONT SCH (04:29)
[2018-03-27 05:29] LABS: Carbon Dioxide 26.7 meq/L (21.0-32.0)
[2018-03-27 05:31] LABS: Baso % (Auto) 0.2 % (0.0-2.0); Eos % (Auto) 0.4 % (0.0-4.0); Hematocrit 24.9 % (35.0-46.0); Hemoglobin 8.6 gm/dL (11.6-15.3); Lymph # (Auto) 0.6 th/mm3 (1.0-4.8); Lymph % (Auto) 6.4 % (9.0-44.0); Mean Corpuscular HGB Conc 34.4 % (32.0-36.0); Mean Corpuscular Hemoglobin 34.7 pg (27.0-34.0); Mean Corpuscular Volume 100.9 fL (80.0-100.0); Mean Platelet Volume 7.8 fL (7.0-11.0); Mono # (Auto) 1.2 th/mm3 (0.0-0.9); Mono % (Auto) 11.7 % (0.0-8.0); Neut # (Auto) 8.2 th/mm3 (1.8-7.7); Neut % (Auto) 81.3 % (16.0-70.0); Platelet Count 133 th/mm3 (150-450); Red Blood Count 2.47 mil/mm3 (4.00-5.30); Red Cell Distribution Width 14.1 % (11.6-17.2)
--- NOTE | 2018-03-27 07:47 | P.PNOP ---
Subjective Interval history: Patient resting comfortably this morning. Physical Exam Vital signs: Vital Signs 03/26/18 08:00 03/26/18 10:54 03/26/18 12:00 Temperature 98.6 F 97.9 F Pulse Rate 79 81 Respiratory Rate 16 16 Blood Pressure 140/63 108/55 L Pulse Oximetry 96 95 98 03/26/18 16:00 03/26/18 20:00 03/27/18 00:00 Temperature 98.9 F 99.0 F 98.1 F Pulse Rate 89 83 77 Respiratory Rate 16 16 16 Blood Pressure 136/59 L 119/58 L 127/58 L Pulse Oximetry 97 93 L 93 L Intake & Output 03/26/18 03/27/18 03/27/18 18:59 06:59 18:59 Intake Total 100 / 100 1100 / 1100 Output Total 200 / 200 Balance -100 / -100 1100 / 1100 Weight 53.9 kg 53.6 kg Intake: IV 100 / 100 1100 / 1100 NS Inj 1,000 ML @ 90 mls/hr IV. 1000 / 1000 CONT .Q11H7M SANDI Rx#:[id number] Ancef 1 GM Premix Inj 1 gm In 100 / 100 50 ml @ 200 mls/hr IV.SIG Q8H SANDI Rx#:[id number] Rocephin Inj 1,000 MG In NS Inj 100 / 100 100 ML @ 200 mls/hr IV.SIG Q24H SANDI Rx#:[id number] Output: Urine Amount (Catheter) 200 / 200 Straight 200 / 200 Other: # Voids 2 # Incontinent Voids 4 Weight On Admission 53.9 kg Narrative: Sleeping but arousable Right lower extremity: Dressings in place without significant drainage. Negative Homans. Neurovascularly intact distally. Brisk cap refill - Urinary Catheter Management Straight Cath placed during this visit: yes, but has since been removed by the nurse Reason for continuing: Not indwelling catheter Insertion date: 03/26/18 Insertion time: 13:30 Removal date: 03/26/18 Removal time: 13:37 Results - Labs CBC & Chem 7: 03/27/18 04:42 03/27/18 04:42 Laboratory Results - last 24 hr 03/26/18 03/27/18 03/27/18 09:50 04:42 04:42 WBC 10.0 RBC 2.47 L Hgb 8.6 L Hct 24.9 L MCV 100.9 H MCH 34.7 H MCHC 34.4 RDW 14.1 Plt Count 133 L MPV 7.8 Neut % (Auto) 81.3 H Lymph % (Auto) 6.4 L [place] % (Auto) 11.7 H Eos % (Auto) 0.4 Baso % (Auto) 0.2 Neut # (Auto) 8.2 H Lymph # (Auto) 0.6 L [place] # (Auto) 1.2 H Eos # (Auto) 0.0 Baso # (Auto) 0.0 WBC Differential . Differential Comment Auto diff final Sodium 141 Potassium 4.0 Chloride 108 H Carbon Dioxide 26.7 Anion Gap 6 BUN 13 Creatinine 0.71 Estimated GFR 79 L Random Glucose 122 H Calcium 8.0 L Vitamin D 25-Hydroxy 34.4 Assessment and Plan - Assessment and Plan 82-year-old female postop day 2 status post right intramedullary nail for intertrochanteric femur fracture 1. Partial weightbearing 50% right lower extremity 2. PT for mobilization 3. Lovenox for DVT prophylaxis while inpatient. May switch to Xarelto upon discharge. 4. Discharge planning: Patient may likely require placement upon discharge. Patient may follow-up in my office in 2 weeks.
--- NOTE | 2018-03-27 09:25 | P.PNFP ---
Subjective Interval history: No acute events overnight. Patient doing well this morning. Set patient up to eat breakfast. Patient is oriented to person and place, but not time. Denies fevers, chest pain, shortness of breath, abdominal pain. Patient will be going to [facility] tomorrow. <Scarlet Trotter T - 03/27/18 10:49> Results - Labs Result diagrams: 03/27/18 04:42 03/27/18 04:42 <Mich Yadav L - 03/27/18 11:49> Abnormal lab results 03/27/18 03/27/18 Range/Units 04:42 04:42 RBC 2.47 L (4.00-5.30) mil/mm3 Hgb 8.6 L (11.6-15.3) gm/dL Hct 24.9 L (35.0-46.0) % MCV 100.9 H (80.0-100.0) fL MCH 34.7 H (27.0-34.0) pg Plt Count 133 L (150-450) th/mm3 Neut % (Auto) 81.3 H (16.0-70.0) % Lymph % (Auto) 6.4 L (9.0-44.0) % [place] % (Auto) 11.7 H (0.0-8.0) % Neut # (Auto) 8.2 H (1.8-7.7) th/mm3 Lymph # (Auto) 0.6 L (1.0-4.8) th/mm3 [place] # (Auto) 1.2 H (0.0-0.9) th/mm3 Chloride 108 H (98-107) meq/L Estimated GFR 79 L (>89) mL/min Random Glucose 122 H (74-106) mg/dL Calcium 8.0 L (8.5-10.1) mg/dL Short CBC 03/27/18 Range/Units 04:42 WBC 10.0 (4.0-11.0) th/mm3 Hgb 8.6 L (11.6-15.3) gm/dL Hct 24.9 L (35.0-46.0) % Plt Count 133 L (150-450) th/mm3 BMP 03/27/18 04:42 Sodium 141 Potassium 4.0 Chloride 108 H Carbon Dioxide 26.7 BUN 13 Creatinine 0.71 Calcium 8.0 L <Mich Yadav L - 03/27/18 11:49> Abnormal lab results 03/27/18 03/27/18 Range/Units 04:42 04:42 RBC 2.47 L (4.00-5.30) mil/mm3 Hgb 8.6 L (11.6-15.3) gm/dL Hct 24.9 L (35.0-46.0) % MCV 100.9 H (80.0-100.0) fL MCH 34.7 H (27.0-34.0) pg Plt Count 133 L (150-450) th/mm3 Neut % (Auto) 81.3 H (16.0-70.0) % Lymph % (Auto) 6.4 L (9.0-44.0) % [place] % (Auto) 11.7 H (0.0-8.0) % Neut # (Auto) 8.2 H (1.8-7.7) th/mm3 Lymph # (Auto) 0.6 L (1.0-4.8) th/mm3 [place] # (Auto) 1.2 H (0.0-0.9) th/mm3 Chloride 108 H (98-107) meq/L Estimated GFR 79 L (>89) mL/min Random Glucose 122 H (74-106) mg/dL Calcium 8.0 L (8.5-10.1) mg/dL Short CBC 03/27/18 Range/Units 04:42 WBC 10.0 (4.0-11.0) th/mm3 Hgb 8.6 L (11.6-15.3) gm/dL Hct 24.9 L (35.0-46.0) % Plt Count 133 L (150-450) th/mm3 [facility] 03/27/18 04:42 Sodium 141 Potassium 4.0 Chloride 108 H Carbon Dioxide 26.7 BUN 13 Creatinine 0.71 Calcium 8.0 L <Scarlet Trotter T - 03/27/18 09:24> Physical Exam Vital signs: Vital Signs 03/26/18 12:00 03/26/18 16:00 03/26/18 20:00 Temperature 97.9 F 98.9 F 99.0 F Pulse Rate 81 89 83 Respiratory Rate 16 16 16 Blood Pressure 108/55 L 136/59 L 119/58 L Pulse Oximetry 98 97 93 L 11/01/18 00:00 03/27/18 08:00 Temperature 98.1 F 98.2 F Pulse Rate 77 79 Respiratory Rate 16 16 Blood Pressure 127/58 L 116/52 L Pulse Oximetry 93 L 94 L Intake & Output 03/26/18 03/27/18 03/27/18 18:59 06:59 18:59 Intake Total 100 / 100 1100 / 1100 Output Total 200 / 200 Balance -100 / -100 1100 / 1100 Weight 53.9 kg 53.6 kg Intake: IV 100 / 100 1100 / 1100 NS Inj 1,000 ML @ 90 mls/hr IV. 1000 / 1000 CONT .Q11H7M SANDI Rx#:[id number] Ancef 1 GM Premix Inj 1 gm In 100 / 100 50 ml @ 200 mls/hr IV.SIG Q8H SANDI Rx#:[id number] Rocephin Inj 1,000 MG In NS Inj 100 / 100 100 ML @ 200 mls/hr IV.SIG Q24H SANDI Rx#:[id number] Output: Urine Amount (Catheter) 200 / 200 Straight 200 / 200 Other: # Voids 2 # Incontinent Voids 4 Weight On Admission 53.9 kg <Mich Yadav L - 03/27/18 11:49> Vital Signs 03/26/18 10:54 03/26/18 12:00 03/26/18 16:00 Temperature 97.9 F 98.9 F Pulse Rate 81 89 Respiratory Rate 16 16 Blood Pressure 108/55 L 136/59 L Pulse Oximetry 95 98 97 03/26/18 20:00 03/27/18 00:00 Temperature 99.0 F 98.1 F Pulse Rate 83 77 Respiratory Rate 16 16 Blood Pressure 119/58 L 127/58 L Pulse Oximetry 93 L 93 L Intake & Output 03/26/18 03/27/18 03/27/18 18:59 06:59 18:59 Intake Total 100 / 100 1100 / 1100 Output Total 200 / 200 Balance -100 / -100 1100 / 1100 Weight 53.9 kg 53.6 kg Intake: IV 100 / 100 1100 / 1100 NS Inj 1,000 ML @ 90 mls/hr IV. 1000 / 1000 CONT .Q11H7M SANDI Rx#:[id number] Ancef 1 GM Premix Inj 1 gm In 100 / 100 50 ml @ 200 mls/hr IV.SIG Q8H SANDI Rx#:[id number] Rocephin Inj 1,000 MG In NS Inj 100 / 100 100 ML @ 200 mls/hr IV.SIG Q24H SANDI Rx#:[id number] Output: Urine Amount (Catheter) 200 / 200 Straight 200 / 200 Other: # Voids 2 # Incontinent Voids 4 Weight On Admission 53.9 kg <Scarlet Trotter - 03/27/18 09:24> Narrative: General: Pleasant, elderly female in no acute distress Respiratory: Clear to auscultation bilaterally, no wheezes or crackles Cardio: Regular rate and rhythm, no murmurs rubs or gallops Abdominal: Soft, nontender nondistended, positive bowel sounds, no rebound or guarding Extremities: Bandage over left hip, no ecchymosis, able to wiggle toes, 2+ pedal pulses Neuro: Alert and oriented to person and place. Resting tremor and occasional lip smacking <SergoMarioScarletusama Bermeo - 03/27/18 10:49> - Urinary Catheter Management Straight Cath placed during this visit: no <Mich Yadav L 03/27/18 11:49> yes, but has since been removed by the nurse <Fernando Trotterbrianna Bermeo 03/27/18 10:49> Reason for continuing: Not indwelling catheter <Fernando Trottern [place] 03/27/18 09 :24> Insertion date: 03/26/18 <SergoFernandon Bermeo 03/27/18 09:24> Insertion time: 13:30 <SergoScarletbrianna Bermeo 03/27/18 09:24> Removal date: 03/26/18 <SergoScarletbrianna Bermeo 03/27/18 09:24> Removal time: 13:37 <SergoScarletbrianna Bermeo 03/27/18 09:24> Assessment and Plan - Assessment (1) Closed displaced intertrochanteric fracture of right femur Code(s): S72.141A - Displaced intertrochanteric fracture of right femur, initial encounter for closed fracture Status: Acute (2) UTI (urinary tract infection) Code(s): N39.0 - Urinary tract infection, site not specified Status: Acute (3) Parkinson disease Code(s): G20 - Parkinson's disease Status: Acute (4) Nutrition, metabolism, and development symptoms Code(s): R63.8 - Other symptoms and signs concerning food and fluid intake Status: Acute <Mich Yadav L - 03/27/18 11:49> (1) Closed displaced intertrochanteric fracture of right femur Code(s): S72.141A - Displaced intertrochanteric fracture of right femur, initial encounter for closed fracture Status: Acute Plan: Now POD 2 s/p right intramedullary nail for intertrochanteric femur fracture Orthopedic consulted for surgery, appreciate recs 1. Partial weightbearing 50% right lower extremity 2. PT for mobilization 3. Lovenox for DVT prophylaxis while inpatient. May switch to Xarelto upon discharge 4. Discharge planning: Patient may likely require placement upon discharge. Patient may follow-up in my office in 2 weeks. Pain control with [place] and Tylenol (2) UTI (urinary tract infection) Code(s): N39.0 - Urinary tract infection, site not specified Status: Acute Plan: UA on admission positive for positive nitrites and leukocyte esterases and bacteria Urine culture pending Continue Rocephin 1 g daily (3) Parkinson disease Code(s): G20 - Parkinson's disease Status: Acute Plan: Continue home levodopa and carbidopa (4) Nutrition, metabolism, and development symptoms Code(s): R63.8 - Other symptoms and signs concerning food and fluid intake Status: Acute Plan: Fluids: P.o. hydration Diet: Regular diet Electrolytes: Continue home salt tabs, monitor and replete if needed vitals q4h, monitor I & Os DVT prophylaxis: Lovenox and SCDs <Scarlet Trotter T - 03/27/18 10:43> - Attending Attestation Patient seen and discussed with Dr. Trotter this morning. She is S/P day 2 of ORIF of right hip fracture. Will require diligent physical therapy/rehab. May benefit from bisphosphonate as an outpatient. Should ensure adequate calcium and vitamin D. 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 <Mich Yadav Magdy - 03/27/18 11:49> <Scarlet Trotter T - Last Filed: 03/27/18 10:43> (1) Closed displaced intertrochanteric fracture of right femur Qualifiers: Encounter type: initial encounter Qualified Code(s): S72.141A - Displaced intertrochanteric fracture of right femur, initial encounter for closed fracture (2) UTI (urinary tract infection) Qualifiers: Urinary tract infection type: site unspecified Hematuria presence: without hematuria Qualified Code(s): N39.0 - Urinary tract infection, site not specified <Mich Yadav L - Last Filed: 03/27/18 11:49> (1) Closed displaced intertrochanteric fracture of right femur Qualifiers: Encounter type: initial encounter Qualified Code(s): S72.141A - Displaced intertrochanteric fracture of right femur, initial encounter for closed fracture (2) UTI (urinary tract infection) Qualifiers: Urinary tract infection type: site unspecified Hematuria presence: without hematuria Qualified Code(s): N39.0 - Urinary tract infection, site not specified <Scarlet Trotter T - Last Filed: 03/27/18 10:43> (1) Closed displaced intertrochanteric fracture of right femur Qualifiers: Encounter type: initial encounter Qualified Code(s): S72.141A - Displaced intertrochanteric fracture of right femur, initial encounter for closed fracture (2) UTI (urinary tract infection) Qualifiers: Urinary tract infection type: site unspecified Hematuria presence: without hematuria Qualified Code(s): N39.0 - Urinary tract infection, site not specified <Mich Yadav - Last Filed: 03/27/18 11:49> (1) Closed displaced intertrochanteric fracture of right femur Qualifiers: Encounter type: initial encounter Qualified Code(s): S72.141A - Displaced intertrochanteric fracture of right femur, initial encounter for closed fracture (2) UTI (urinary tract infection) Qualifiers: Urinary tract infection type: site unspecified Hematuria presence: without hematuria Qualified Code(s): N39.0 - Urinary tract infection, site not specified
[2018-03-27] MEDS: Ferrous Sulfate 325 MG Tablet PO SCH ×2 (10:06→20:01)
[2018-03-27] MEDS: Enoxaparin Inj 40 MG/0.4 ML Syringe SQ SCH (10:06)
[2018-03-27] MEDS: Sodium Chloride 1 GM Tablet PO SCH (10:06)
[2018-03-27 13:37] LABS: Hematocrit 22.4 % (35.0-46.0); Hemoglobin 7.7 gm/dL (11.6-15.3)
[2018-03-27] MEDS: Docusate Sodium 100 MG Capsule PO SCH (20:01)
[2018-03-27 20:17] LABS: Hematocrit 23.2 % (35.0-46.0); Hemoglobin 7.7 gm/dL (11.6-15.3)
[2018-03-28 06:53] LABS: Calcium 7.4 mg/dL (8.5-10.1); Carbon Dioxide 26.9 meq/L (21.0-32.0); Potassium 3.5 meq/L (3.5-5.1)
[2018-03-28 06:59] LABS: Folate 13.9 ng/mL (3.1-17.5)
[2018-03-28 07:12] LABS: Total Protein 5.1 g/dL (6.4-8.2)
[2018-03-28 09:17] LABS: Hematocrit 21.3 % (35.0-46.0); Hemoglobin 7.2 gm/dL (11.6-15.3); Mean Corpuscular HGB Conc 33.7 % (32.0-36.0); Mean Corpuscular Hemoglobin 34.8 pg (27.0-34.0); Mean Corpuscular Volume 103.1 fL (80.0-100.0); Platelet Count 126 th/mm3 (150-450); Red Blood Count 2.07 mil/mm3 (4.00-5.30); Red Cell Distribution Width 14.3 % (11.6-17.2); White Blood Count 6.8 th/mm3 (4.0-11.0)
[2018-03-28] MEDS: Enoxaparin Inj 40 MG/0.4 ML Syringe SQ SCH (09:19)
[2018-03-28] MEDS: Ferrous Sulfate 325 MG Tablet PO SCH (09:20)
[2018-03-28] MEDS: Sodium Chloride 1 GM Tablet PO SCH (09:20)
--- NOTE | 2018-03-28 11:52 | P.DS ---
Date of admission: 03/25/18 12:51 Primary care physician: UNKNOWN Brief History from admission: 82-year-old female with a history of Parkinson's disease presents to the ER from [facility] for mechanical fall. Patient states that she was working out at the gym at [facility] when she fell. However, after contacting the nurse at the [facility] center, reports that patient was ambulating without her walker and fell due to gait imbalance. Patient denies hitting her head. Patient reports falling onto her right hip and was found on the ground immediately after falling. Endorses headaches since arriving at hospital as well as urinary frequency and urgency with foul-smelling urine Denies dizziness , chest pain, lightheadedness, vision changes, fevers, night sweats, chills, weakness, abdominal pain, and SOB. Per EMR, patient was hospitalized in 2017 for pelvic fracture due to near syncope fall. PHx: Parkinson's Dx Surgeries: None Allergies: Penicillin with unknown reaction FHx: Father at 70 and Mother at unknown age. Heart disease in father. Brother is healthy. Social: [place] all her life at a hospital. Never no children. Never smoker. Social drinker, maybe a glass a week. Denies illicit drug use. Code: DNR DS: Diagnosis - Discharge Diagnosis (1) Closed displaced intertrochanteric fracture of right femur Status: Acute (2) UTI (urinary tract infection) Status: Acute (3) Parkinson disease Status: Acute (4) Nutrition, metabolism, and development symptoms Status: Acute DS: Medications - Discharge Medications Prescriptions: hydrocodone-acetaminophen 1 tab PO Q4H PRN #3 tab PRN Reason: Pain 6-10 rivaroxaban [Xarelto] 10 mg PO DAILY #14 tab DS: Summary Hospital Course: This patient is an 82-year-old female with a history of Parkinson's disease who was admitted after sustaining an close displaced intertrochanteric fracture of the right femur after mechanical fall at [facility]. On arrival to the ED patient received hip x-ray that showed the intertrochanteric fracture with evolution of the lesser trochanter and orthopedic surgery was consulted. Patient was also found to have nitrites and leukocyte esterases and UA and started on Rocephin. On March 25 patient underwent intramedullary nailing for fracture of the right intertrochanteric femur. At the surgery patient was anticoagulated with Lovenox and partial weightbearing at 50% was initiated. The rest of the patient's hospital course was uneventful and patient was discharged to rehabilitation at [facility] and started on Xarelto for anticoagulation. - Time Spent with Patient Total time spent providing and/or coordinating discharge services: Greater than 30 minutes - Quality: VTE Deep Vein Thrombosis/Pulmonary Embolism Present on Admission: No Exam Vital signs: Vital Signs 03/27/18 12:00 03/27/18 16:00 03/27/18 20:00 Temperature 98.1 F 99.9 F H 99.2 F Pulse Rate 84 67 89 Respiratory Rate 18 18 18 Blood Pressure 97/47 L 128/58 L 125/66 Pulse Oximetry 94 L 94 L 95 03/27/18 20:01 03/28/18 00:00 03/28/18 04:00 Temperature 98.5 F 98.2 F Pulse Rate 76 83 Respiratory Rate 18 18 18 Blood Pressure 105/53 L 100/50 L Pulse Oximetry 97 96 03/28/18 06:00 03/28/18 08:00 Temperature 98.6 F Pulse Rate 76 Respiratory Rate 17 14 Blood Pressure 115/58 L Pulse Oximetry 94 L Intake & Output 03/27/18 03/28/18 03/28/18 18:59 06:59 18:59 Intake Total 340 / 340 20 / 20 Output Total Balance 339 / 339 20 / 20 Weight 57.1 kg Intake: IV 100 / 100 Rocephin Inj 1,000 MG In NS Inj 100 / 100 100 ML @ 200 mls/hr IV.SIG Q24H [facility] Rx#:[id number] Oral 240 / 240 20 20 Output: Urine Other: # Voids 3 1 # Incontinent Voids 3 1 Narrative: General: Pleasant, elderly female in no acute distress sitting comfortably in chair Respiratory: Clear to auscultation bilaterally, no wheezes or crackles Cardio: Regular rate and rhythm, no murmurs rubs or gallops Abdominal: Soft, nontender nondistended, positive bowel sounds, no rebound or guarding Extremities: Bandage over left hip, no ecchymosis, able to wiggle toes, 2+ pedal pulses. Good sensation on dorsal and plantar aspects of both lower extremities. Capillary refill less than 2 seconds in lower extremities bilaterally. Neuro: Alert and oriented to person and place. Results Procedures completed during hospitalization: Patient underwent right intramedullary nailing for intertrochanteric femur fracture. Labs on day of discharge: Labs from last 24 hours 03/28/18 03/28/18 03/27/18 08:49 05:19 18:41 WBC 6.8 RBC 2.07 L Hgb 7.2 L 7.7 L Hct 21.3 L 23.2 L MCV 103.1 H MCH 34.8 H MCHC 33.7 RDW 14.3 Plt Count 126 L MPV 8.0 Sodium 144 Potassium 3.5 Chloride 109 H Carbon Dioxide 26.9 Anion Gap 8 BUN 15 Creatinine 0.67 Estimated GFR 84 L Random Glucose 95 Calcium 7.4 L* Prot Corrected Calcium 8.5 Total Protein 5.1 L D Vitamin B12 208 Folate 13.9 03/27/18 12:48 WBC RBC Hgb 7.7 L Hct 22.4 L MCV MCH MCHC RDW Plt Count MPV Sodium Potassium Chloride Carbon Dioxide Anion Gap BUN Creatinine Estimated GFR Random Glucose Calcium Prot Corrected Calcium Total Protein Vitamin B12 Folate - Impressions ITS Impressions Hip X-Ray 03/25/18 11:32 CONCLUSION: Mildly displaced intertrochanteric fracture with avulsion of the lesser trochanter. Chest X-Ray 03/25/18 12:22 CONCLUSION: No acute cardiopulmonary disease Discharge Plan - Discharge Disposition Patient Disposition: Discharge to SNF - Discharge Condition Condition: Stable - Discharge Order Discharge Orders: Discharge Order (Routine); Ordered 03/28/18 Ordered By: Dominick Gregorio Orthopedic Clear for Discharge (Routine); Ordered 03/27/18 Ordered By: Emmy Bautista - Physicians Team Primary Care Provider: UNKNOWN, Attending Provider: Mich Yadav Other Providers: Emmy Bautista MD ; Adonay Corbett
--- NOTE | 2018-03-28 11:52 | P.PNFP ---
Subjective Interval history: Patient was seen at bedside this morning. There were no acute events overnight. Patient reports overall feeling well and believes her pain is well controlled. Patient's future course at [facility] was discussed and patient agrees to plan. Patient denies any subjective fevers, chills, shortness of breath, chest pain, nausea, or vomiting. All questions were answered to the patient's satisfaction. <Dominick Gregorio O - 03/28/18 14:35> Results - Labs Result diagrams: 03/28/18 08:49 03/28/18 05:19 <Mich Yadav L - 03/29/18 14:44> Abnormal lab results 03/27/18 03/27/18 03/28/18 Range/Units 12:48 18:41 05:19 RBC (4.00-5.30) mil/mm3 Hgb 7.7 L 7.7 L (11.6-15.3) gm/dL Hct 22.4 L 23.2 L (35.0-46.0) % MCV (80.0-100.0) fL MCH (27.0-34.0) pg Plt Count (150-450) th/mm3 Chloride 109 H (98-107) meq/L Estimated GFR 84 L (>89) mL/min Calcium 7.4 L* (8.5-10.1) mg/dL Total Protein 5.1 L D (6.4-8.2) g/dL 03/28/18 Range/Units 08:49 RBC 2.07 L (4.00-5.30) mil/mm3 Hgb 7.2 L (11.6-15.3) gm/dL Hct 21.3 L (35.0-46.0) % MCV 103.1 H (80.0-100.0) fL MCH 34.8 H (27.0-34.0) pg Plt Count 126 L (150-450) th/mm3 Chloride (98-107) meq/L Estimated GFR (>89) mL/min Calcium (8.5-10.1) mg/dL Total Protein (6.4-8.2) g/dL Short CBC 03/27/18 03/27/18 03/28/18 Range/Units 12:48 18:41 08:49 WBC 6.8 (4.0-11.0) th/mm3 Hgb 7.7 L 7.7 L 7.2 L (11.6-15.3) gm/dL Hct 22.4 L 23.2 L 21.3 L (35.0-46.0) % Plt Count 126 L (150-450) th/mm3 BMP 03/28/18 05:19 Sodium 144 Potassium 3.5 Chloride 109 H Carbon Dioxide 26.9 BUN 15 Creatinine 0.67 Calcium 7.4 L* <Dominick Gregorio O - 03/28/18 11:52> Physical Exam Vital signs: Vital Signs 03/28/18 16:00 Temperature 98.5 F Pulse Rate 100 H Respiratory Rate 16 Blood Pressure 114/53 L Pulse Oximetry 92 L Intake & Output 03/28/18 03/29/18 03/29/18 18:59 06:59 18:59 Other: # Voids 2 # Incontinent Voids 2 Date of Last Bowel Movement 03/28/18 # Bowel Movements 1 # Incontinent Bowel Movements 1 <Mich Yadav L - 03/29/18 14:44> Vital Signs 03/27/18 12:00 03/27/18 16:00 03/27/18 20:00 Temperature 98.1 F 99.9 F H 99.2 F Pulse Rate 84 67 89 Respiratory Rate 18 18 18 Blood Pressure 97/47 L 128/58 L 125/66 Pulse Oximetry 94 L 94 L 95 03/27/18 20:01 03/28/18 00:00 03/28/18 04:00 Temperature 98.5 F 98.2 F Pulse Rate 76 83 Respiratory Rate 18 18 18 Blood Pressure 105/53 L 100/50 L Pulse Oximetry 97 96 03/28/18 06:00 03/28/18 08:00 Temperature 98.6 F Pulse Rate 76 Respiratory Rate 17 14 Blood Pressure 115/58 L Pulse Oximetry 94 L Intake & Output 03/27/18 03/28/18 03/28/18 18:59 06:59 18:59 Intake Total 340 / 340 20 / 20 Output Total Balance 339 / 339 20 20 Weight 57.1 kg Intake: IV 100 / 100 Rocephin Inj 1,000 MG In NS Inj 100 / 100 100 ML @ 200 mls/hr IV.SIG Q24H [facility] Rx#:[id number] Oral 240 / 240 20 / 20 Output: Urine Other: # Voids 3 1 # Incontinent Voids 3 1 <Dominick Gregorio 03/28/18 11:52> Narrative: General: Pleasant, elderly female in no acute distress sitting comfortably in chair Respiratory: Clear to auscultation bilaterally, no wheezes or crackles Cardio: Regular rate and rhythm, no murmurs rubs or gallops Abdominal: Soft, nontender nondistended, positive bowel sounds, no rebound or guarding Extremities: Bandage over left hip, no ecchymosis, able to wiggle toes, 2+ pedal pulses. Good sensation on dorsal and plantar aspects of both lower extremities. Capillary refill less than 2 seconds in lower extremities bilaterally. Neuro: Alert and oriented to person and place. <Dominick Gregorio 03/28/18 14:35> - Urinary Catheter Management Straight Cath placed during this visit: no <Mich Yadav 03/29/18 14:44> yes, but has since been removed by the nurse <Dominick Gregorio 03/28/18 14:35> Reason for continuing: Not indwelling catheter <Dominick Gregorio 03/28/18 11:52 > Insertion date: 03/26/18 <Dominick Gregorio 03/28/18 11:52> Insertion time: 13:30 <Dominick Gregorio 03/28/18 11:52> Removal date: 03/26/18 <Dominick Gregorio 03/28/18 11:52> Removal time: 13:37 <Dominick Gregorio 03/28/18 11:52> Assessment and Plan - Assessment (1) Closed displaced intertrochanteric fracture of right femur Code(s): S72.141A - Displaced intertrochanteric fracture of right femur, initial encounter for closed fracture Status: Acute (2) UTI (urinary tract infection) Code(s): N39.0 - Urinary tract infection, site not specified Status: Acute (3) Parkinson disease Code(s): G20 - Parkinson's disease Status: Acute (4) Nutrition, metabolism, and development symptoms Code(s): R63.8 - Other symptoms and signs concerning food and fluid intake Status: Acute <Mich Yadav 03/29/18 14:44> (1) Closed displaced intertrochanteric fracture of right femur Code(s): S72.141A - Displaced intertrochanteric fracture of right femur, initial encounter for closed fracture Status: Acute Plan: Now POD 3 s/p right intramedullary nail for intertrochanteric femur fracture Orthopedic consulted for surgery, appreciate recs 1. Partial weightbearing 50% right lower extremity 2. Lovenox for DVT prophylaxis while inpatient. Xarelto on discharge. 3. Discharge planning: Patient to be discharged this afternoon for inpatient rehab at [facility]. Follow-up with Dr. Bautista in 2 weeks. Pain control with [place] and Tylenol (2) UTI (urinary tract infection) Code(s): N39.0 - Urinary tract infection, site not specified Status: Acute Plan: UA on admission positive for positive nitrites and leukocyte esterases and bacteria Urine culture no growth after 48 hours Discontinue antibiotic treatment upon discharge. (3) Parkinson disease Code(s): G20 - Parkinson's disease Status: Acute Plan: Continue home levodopa and carbidopa (4) Nutrition, metabolism, and development symptoms Code(s): R63.8 - Other symptoms and signs concerning food and fluid intake Status: Acute Plan: Fluids: P.o. hydration Diet: Regular diet Electrolytes: Continue home salt tabs, monitor and replete if needed vitals q4h, monitor I & Os DVT prophylaxis: Lovenox and SCDs <Dominick Gregorio O - 03/28/18 14:30> - Attending Attestation I discussed and evaluated the patient with the resident and agree with the assessment and plan as documented. <Mich Yadav - 03/29/18 14:44> <Dominick Gregorio O - Last Filed: 03/28/18 14:30> (1) Closed displaced intertrochanteric fracture of right femur Qualifiers: Encounter type: initial encounter Qualified Code(s): S72.141A - Displaced intertrochanteric fracture of right femur, initial encounter for closed fracture (2) UTI (urinary tract infection) Qualifiers: Urinary tract infection type: site unspecified Hematuria presence: without hematuria Qualified Code(s): N39.0 - Urinary tract infection, site not specified <Mich Yadav - Last Filed: 03/29/18 14:44> (1) Closed displaced intertrochanteric fracture of right femur Qualifiers: Encounter type: initial encounter Qualified Code(s): S72.141A - Displaced intertrochanteric fracture of right femur, initial encounter for closed fracture (2) UTI (urinary tract infection) Qualifiers: Urinary tract infection type: site unspecified Hematuria presence: without hematuria Qualified Code(s): N39.0 - Urinary tract infection, site not specified <Dominick Gregorio O - Last Filed: 03/28/18 14:30> (1) Closed displaced intertrochanteric fracture of right femur Qualifiers: Encounter type: initial encounter Qualified Code(s): S72.141A - Displaced intertrochanteric fracture of right femur, initial encounter for closed fracture (2) UTI (urinary tract infection) Qualifiers: Urinary tract infection type: site unspecified Hematuria presence: without hematuria Qualified Code(s): N39.0 - Urinary tract infection, site not specified <Mich Yadav - Last Filed: 03/29/18 14:44> (1) Closed displaced intertrochanteric fracture of right femur Qualifiers: Encounter type: initial encounter Qualified Code(s): S72.141A - Displaced intertrochanteric fracture of right femur, initial encounter for closed fracture (2) UTI (urinary tract infection) Qualifiers: Urinary tract infection type: site unspecified Hematuria presence: without hematuria Qualified Code(s): N39.0 - Urinary tract infection, site not specified
== END 2018-03-28 16:47 ==
LOC: NEPE 11:15 → NEDA 12:51 → N06 21:07
PROVIDERS: ADMIT Family Medicine; ATTEND Family Medicine